=== PATIENT | female | born 1930 | race Caucasian/White ===

== ENCOUNTER 2016-12-28 07:00 | Day surgery (SDC) | payer MEDICARE, BC ==
[2016-12-28] MEDS: Polymyxin B/Trimethoprim 10 ML Bottle EYELF SCH ×4 (07:11→08:32)
[2016-12-28] MEDS: Brimonidine 0.2% Ophth Soln 5 ML Bottle EYELF SCH ×4 (07:17→08:32)
--- NOTE | 2016-12-28 07:21 | PCM.PREANE ---
Preanesthetic Assessment - Anesthesia/Transfusion/Family Hx Anesthesia History: Prior Anesthesia Without Reaction Type of Anesthesia Reaction: Excessive Nausea/Vomiting Family History of Anesthesia Reaction: No Transfusion History: No Prior Transfusion(s) Intubation History: Unknown - Review of Systems General: No Symptoms Pulmonary: No Symptoms Cardiovascular: No Symptoms (History of HTN), Dyspnea on Exertion Gastrointestinal: No Symptoms (GERD) Neurological: Dizziness, Difficulty Walking, Weakness Other: Reports: Easy Bruising, Diabetes (aBorderline diabetes) - Physical Assessment NPO Status Date: 12/27/16 NPO Status Time: 23:59 Pulse: 83 O2 Sat by Pulse Oximetry: 93 Respiratory Rate: 16 Blood Pressure: 169/86 Temperature: 37.4 C Height: 1.55 m Weight: 83.915 kg ASA Class: 2 Mental Status: Alert & Oriented x3 Airway Class: Mallampati = 2 Dentition: Reports: Normal Dentition, [place](s), Missing Tooth/Teeth, Caries Thyro-Mental Finger Breadths: 3 Mouth Opening Finger Breadths: 3 ROM/Head Extension: Full Lungs: Clear to Auscultation, Normal Respiratory Effort Cardiovascular: Regular Rate, Regular Rhythm, No Murmurs - Allergies Allergies/Adverse Reactions: Allergies Allergy/AdvReac Type Severity Reaction Status Date / Time No Known Allergies Allergy Verified 12/22/16 11:12 - Anesthesia Plan Pre-Op Medication Ordered: None - Acknowledgements Anesthesia Type Planned: MAC Pt an Appropriate Candidate for the Planned Anesthesia: Yes Alternatives and Risks of Anesthesia Discussed w Pt/Guardian: Yes Pt/Guardian Understands and Agrees with Anesthesia Plan: Yes PreAnesthesia Questionnaire - HOME MEDS Home Medications: Home Meds Acetaminophen 650 mg PO Q6H PRN 12/23/16 [History] Ascorbate Calcium [Vitamin C] 500 mg PO DAILY 12/23/16 [History] Calcium Carbonate/Vitamin D3 [Calcium 600 + Vit D 400 Tablet] 1 tab PO DAILY [History] Irbesartan 150 mg PO DAILY 12/23/16 [History] Rosuvastatin [Crestor] 10 mg PO DAILY 12/23/16 [History] amLODIPine [Norvasc] 10 mg PO DAILY 12/23/16 [History] rOPINIRole [Requip] 4 mg PO BEDTIME 12/23/16 [History] traMADol [Ultram] 50 mg PO Q6H PRN 12/23/16 [History] - CURRENT (IN HOUSE) MEDS Current Meds: Current Medications Brimonidine Tartrate (Alphagan 0.2% Ophth Soln) 0 ml EYELF ASDIRECTED ROSALBA Stop: 12/28/16 16:00 Cefuroxime Sodium (Zinacef) 0 mg EYELF ASDIRECTED ROSALBA Stop: 12/28/16 16:00 Lidocaine HCl (Xylocaine-Mpf 1%) 10 ml INJECT ASDIRECTED ROSALBA Stop: 12/28/16 16:00 Phenylephrine HCl (Umair-Synephrine 2.5% Ophth Soln) 0 ml EYELF ASDIRECTED ROSALBA Stop: 12/28/16 16:00 Pilocarpine HCl (Pilocar 4% Ophth Soln) 0 ml EYELF ASDIRECTED ROSALBA Stop: 12/28/16 16:00 Polymyxin/Trimethoprim Sulfate (Polytrim Ophth Soln) 0 ml EYELF ASDIRECTED ROSALBA Stop: 12/28/16 16:00 Last Admin: 12/28/16 07:11 Dose: 1 drop Tetracaine HCl (Tetracaine 0.5% Steri-Unit [place]) 0 ml EYELF ASDIRECTED ROSALBA Stop: 12/28/16 16:00 Tropicamide (Mydriacyl 1% Ophth Soln) 0 ml EYELF ASDIRECTED ROSALBA Stop: 12/28/16 16:00
[2016-12-28] MEDS: Phenylephrine 2.5% Ophth Soln 2 ML Bot EYELF SCH ×6 (07:23→08:09)
[2016-12-28] MEDS: Lidocaine 1% PF 2 ML SDV INJECT SCH ×2 (07:53→08:20)
[2016-12-28] MEDS: Pilocarpine 4% Ophth Soln 15 ML Bot EYELF SCH ×2 (07:53→08:32)
[2016-12-28] MEDS: Tetracaine HCl/PF 0.5% 4 ML Bottle EYELF SCH ×3 (07:53→08:21)
[2016-12-28] MEDS: Cefuroxime 10 MG/ML SYRINGE EYELF SCH ×2 (07:54→08:31)
--- NOTE | 2016-12-28 08:35 | PCM48HPAN ---
Post Anesthesia Note - EVALUATION WITHIN 48HRS OF ANESTHETIC Vital Signs in Normal Range: Yes Patient Participated in Evaluation: Yes Respiratory Function Stable: Yes Airway Patent: Yes Cardiovascular Function Stable: Yes Hydration Status Stable: Yes Pain Control Satisfactory: Yes Nausea and Vomiting Control Satisfactory: Yes Mental Status Recovered: Yes
[2016-12-28 08:58] VITALS: BP 154/78
== END 2016-12-28 08:50 | disposition home or self-care (01) ==
LOC: JD.SDS 07:00
PROVIDERS: ATTEND Ophthalmology
DX: H26.9 Unspecified cataract (principal); I10 Essential (primary) hypertension; E78.00 Pure hypercholesterolemia, unspecified; E11.9 Type 2 diabetes mellitus without complications; Z79.899 Other long term (current) drug therapy; Z90.710 Acquired absence of both cervix and uterus; Z98.890 Other specified postprocedural states
CPT/HCPCS: 66984; A9270; C1780; J0697

== ENCOUNTER → 2017-04-26 | Day surgery (SDC) | payer MEDICARE, BC ==
[~2017-04-26] MED LIST: Cefuroxime 10 MG/ML SYRINGE EYERT SCH; Lidocaine 1% PF 2 ML SDV INJECT SCH; Pilocarpine 4% Ophth Soln 15 ML Bot EYERT SCH
[2017-04-26] MEDS: Polymyxin B/Trimethoprim 10 ML Bottle EYERT SCH ×3 (09:27→11:16)
[2017-04-26] MEDS: Brimonidine 0.2% Ophth Soln 5 ML Bottle EYERT SCH ×3 (09:32→11:16)
[2017-04-26] MEDS: Phenylephrine 2.5% Ophth Soln 2 ML Bot EYERT SCH ×5 (09:37→10:58)
[2017-04-26] MEDS: Tetracaine HCl/PF 0.5% 4 ML Bottle EYERT SCH ×2 (10:30→11:08)
[2017-04-26 16:58] VITALS: BP 175/87
== END ==
LOC: JD.SDS 14:44
PROVIDERS: ATTEND Ophthalmology
DX: E11.36 Type 2 diabetes mellitus with diabetic cataract (principal); H25.011 Cortical age-related cataract, right eye; H02.834 Dermatochalasis of left upper eyelid; H02.831 Dermatochalasis of right upper eyelid; E78.00 Pure hypercholesterolemia, unspecified; I10 Essential (primary) hypertension; Z98.42 Cataract extraction status, left eye; Z96.1 Presence of intraocular lens; Z79.84 Long term (current) use of oral hypoglycemic drugs; Z79.899 Other long term (current) drug therapy; Z90.710 Acquired absence of both cervix and uterus; Z98.890 Other specified postprocedural states
CPT/HCPCS: 66984; 82962; C1780; J0697; A9270-GY

== ENCOUNTER → 2017-07-26 | Day surgery (SDC) | payer MEDICARE, BC ==
[~2017-07-26] MED LIST changes: +Brimonidine 0.2% Ophth Soln 5 ML Bottle EYEBOTH SCH; -Cefuroxime 10 MG/ML SYRINGE EYERT SCH; -Lidocaine 1% PF 2 ML SDV INJECT SCH; +Phenylephrine 2.5% Ophth Soln 2 ML Bot EYEBOTH SCH; -Pilocarpine 4% Ophth Soln 15 ML Bot EYERT SCH
[2017-07-26 12:29] VITALS: BP 161/97
== END ==
LOC: JD.SDS 10:42
PROVIDERS: ATTEND Ophthalmology
DX: H26.493 Other secondary cataract, bilateral (principal); H35.3131 Nonexudative age-related macular degeneration, bilateral, early dry stage; H35.363 Drusen (degenerative) of macula, bilateral; H40.003 Preglaucoma, unspecified, bilateral; H35.372 Puckering of macula, left eye; E11.9 Type 2 diabetes mellitus without complications; E78.00 Pure hypercholesterolemia, unspecified; I10 Essential (primary) hypertension; Z96.1 Presence of intraocular lens; Z90.710 Acquired absence of both cervix and uterus; Z98.890 Other specified postprocedural states; Z79.899 Other long term (current) drug therapy; Z79.84 Long term (current) use of oral hypoglycemic drugs

== ENCOUNTER 2017-10-05 17:14 | Emergency (ER) | payer MEDICARE, BC ==
[2017-10-05 17:27] VITALS: BP 183/91
--- NOTE | 2017-10-05 17:59 | EDM.PDOC ---
ED HPI GENERAL MEDICAL PROBLEM - General Chief Complaint: Chest Pain Stated Complaint: chest pain Time Seen by Provider: 10/05/17 17:58 Source of Information: Reports: Patient - History of Present Illness INITIAL COMMENTS - FREE TEXT/NARRATIVE: Patient is here for evaluation of primary complaint of chest pain. She states that it radiates from the middle of her chest to her back. This has been going on since the middle of the night last night per her report. She denies any associated diaphoresis. She denies any radiation of the pain. She also states that she felt very dizzy this morning and off balance. She has been walking with a walker for approximately one month. She occasionally feels short of breath too, more specifically with exertion. Patient does have history of hypertension and diabetes, which she is on medication and sees her PCP regularly. Chest Pain Score (Numeric/FACES): 3 - Related Data Allergies Allergy/AdvReac Type Severity Reaction Status Date / Time No Known Allergies Allergy Verified 10/05/17 17:24 Home Meds: Home Meds Irbesartan 150 mg PO DAILY 12/23/16 [History] Rosuvastatin [Crestor] 10 mg PO DAILY 12/23/16 [History] amLODIPine [Norvasc] 10 mg PO DAILY 12/23/16 [History] rOPINIRole [Requip] 4 mg PO BEDTIME 12/23/16 [History] traMADol [Ultram] 50 mg PO Q6H PRN 12/23/16 [History] Dextran 70/Hypromellose [Artificial Tears] 1 drop EYEBOTH ASDIRECTED 07/25/17 [ History] metFORMIN [Glucophage XR] 500 mg PO BID 07/25/17 [History] Acetaminophen [Tylenol] 650 mg PO Q6H PRN 10/05/17 [History] Ascorbate Calcium [Vitamin C] 500 mg PO DAILY 10/05/17 [History] Calcium Carb & Citrate/Vit D3 [Citracal + D ER] 1 tab PO DAILY 10/05/17 [History ] Docusate Sodium/Sennosides [Senokot-S] 8.6 - 50 mg PO BID 10/05/17 [History] Past Medical History HEENT History: Reports: Cataract, Macular Degeneration Cardiovascular History: Reports: Hypertension Gastrointestinal History: Reports: Chronic Diarrhea Endocrine/Metabolic History: Reports: Diabetes, Type II - Past Surgical History Musculoskeletal Surgical History: Reports: Knee Replacement, Shoulder Replacement Social & Family History - Tobacco Use Smoking Status *Q: Never Smoker ED ROS GENERAL - Review of Systems Review Of Systems: See Below Constitutional: Reports: Weakness, Fatigue. Denies: Fever, Chills, Malaise, Decreased Appetite HEENT: Denies: Ear Discharge, Ear Pain, Rhinitis, Sinus Problem, Vision Change Respiratory: Reports: Shortness of Breath, Other (Dyspnea on exertion). Denies : Wheezing, Pleuritic Chest Pain, Cough, Sputum Cardiovascular: Reports: Chest Pain, Blood Pressure Problem, Dyspnea on Exertion , Edema, Lightheadedness. Denies: Claudication, Orthopnea, Palpitations, PND, Syncope Endocrine: Reports: Fatigue GI/Abdominal: Reports: No Symptoms : Reports: Incontinence (chronic) Musculoskeletal: Reports: Back Pain (Chronic) Skin: Reports: No Symptoms Neurological: Reports: Dizziness, Weakness, Gait Disturbance. Denies: Confusion , Headache, Numbness, Syncope, Tingling Psychiatric: Reports: No Symptoms ED EXAM, GENERAL - Physical Exam Exam: See Below Exam Limited By: No Limitations General Appearance: Alert, WD/WN, No Apparent Distress Ears: Normal External Exam, Normal TMs, Hearing Loss (Mild/bilateral) Throat/Mouth: Normal Oropharynx, Other (Poor dentition) Head: Atraumatic, Normocephalic Neck: Normal Inspection, Supple, Non-Tender Respiratory/Chest: No Respiratory Distress, Lungs Clear, Normal Breath Sounds, No Accessory Muscle Use Cardiovascular: Normal Peripheral Pulses, Regular Rate, Rhythm, No Murmur Peripheral Pulses: 1+: Dorsalis Pedis (L), Dorsalis Pedis (R), 2+: Posterior Tibial (L), Posterior Tibial (R) GI/Abdominal: Normal Bowel Sounds, Soft, Non-Tender Neurological: Alert, Oriented, No Motor/Sensory Deficits Psychiatric: Normal Affect, Normal Mood Skin Exam: Warm, Dry, Intact EKG INTERPRETATION EKG Date: 10/05/17 Time: 17:22 Rhythm: NSR Course - Vital Signs Last Recorded V/S: Last Vital Signs Temp 99.0 F 10/05/17 17:24 Pulse 85 10/05/17 17:24 Resp 20 10/05/17 17:24 BP 183/91 H 10/05/17 17:24 Pulse Ox 89 L 10/05/17 17:24 - Orders/Labs/Meds Orders: Active Orders 24 hr Category Date Time Status CXR [Chest 2V] [CR] Stat Exams 10/05/17 18:10 Taken UA W/MICROSCOPIC [URIN] Stat Lab 10/05/17 18:10 Ordered Sodium Chloride 0.9% [Normal Saline] 250 ml Med 10/05/17 19:45 Active IV ASDIRECTED Sodium Chloride 0.9% [Saline Flush] Med 10/05/17 19:38 Active 10 ml FLUSH ONETIME PRN Medication Orders Sodium Chloride (Normal Saline) 250 mls @ 80 mls/hr IV ASDIRECTED ROSALBA Last Admin: 10/05/17 20:04 Dose: 80 mls/hr Sodium Chloride (Saline Flush) 10 ml FLUSH ONETIME PRN PRN Reason: IV FLUSH Last Admin: 10/05/17 20:04 Dose: 10 ml Labs: Laboratory Tests 10/05/17 10/05/17 10/05/17 Range/Units 17:30 17:30 17:30 WBC 9.48 (3.98-10.04) K/mm3 RBC 5.15 (3.98-5.22) M/mm3 Hgb 15.3 (11.2-15.7) gm/L Hct 46.0 H (34.1-44.9) % MCV 89.3 (79.4-94.8) fl MCH 29.7 (25.6-32.2) pg MCHC 33.3 (32.2-35.5) g/dl RDW Std Deviation 42.6 (36.4-46.3) fL Plt Count 265 (182-369) K/mm3 MPV 10.6 (9.4-12.3) fl Neutrophils % (Manual) 75 H (40-60) % Band Neutrophils % 0 (0-10) % Lymphocytes % (Manual) 25 (20-40) % Atypical Lymphs % 0 % Monocytes % (Manual) 0 L (2-10) % Eosinophils % (Manual) 0 L (0.7-5.8) % Basophils % (Manual) 0 L (0.1-1.2) Platelet Estimate Adequate RBC Morph Comment Normal D-Dimer, Quantitative (0.19-0.50) mg/L Sodium 142 (136-145) mEq/L Potassium 3.3 L (3.5-5.1) mEq/L Chloride 104 (98-107) mEq/L Carbon Dioxide 30 (21-32) mEq/L Anion Gap 11.3 (5-15) BUN 19 H (7-18) mg/dL Creatinine 1.0 (0.55-1.02) mg/dL Est Cr Clr Drug Dosing 32.79 mL/min Estimated GFR (MDRD) 52 (>60) mL/min BUN/Creatinine Ratio 19.0 H (14-18) Glucose 190 H (83-115) mg/dL Hemoglobin A1c (4.50-6.20) % Calcium 9.3 (8.5-10.1) mg/dL Magnesium 1.8 (1.8-2.4) mg/dl Total Bilirubin 0.4 (0.2-1.0) mg/dL AST 15 (15-37) U/L ALT 22 (14-59) U/L Alkaline Phosphatase 89 (46-116) U/L Troponin I < 0.017 (0.00-0.056) ng/mL Total Protein 7.6 (6.4-8.2) g/dl Albumin 3.6 (3.4-5.0) g/dl Globulin 4.0 gm/dL Albumin/Globulin Ratio 0.9 L (1-2) Urine Color (Yellow) Urine Appearance (Clear) Urine pH (5.0-8.0) Ur Specific [place] (1.005-1.030) Urine Protein (Negative) Urine Glucose (UA) (Negative) Urine Ketones (Negative) Urine Occult Blood (Negative) Urine Nitrite (Negative) Urine Bilirubin (Negative) Urine Urobilinogen (0.2-1.0) Ur Leukocyte Esterase (Negative) Urine RBC (0-5) /hpf Urine WBC (0-5) /hpf Ur Epithelial Cells (0-5) /hpf Urine Bacteria (FEW) /hpf Urine Mucus (FEW) /hpf 10/05/17 10/05/17 10/05/17 Range/Units 17:30 17:30 18:10 WBC (3.98-10.04) K/mm3 RBC (3.98-5.22) M/mm3 Hgb (11.2-15.7) gm/L Hct (34.1-44.9) % MCV (79.4-94.8) fl MCH (25.6-32.2) pg MCHC (32.2-35.5) g/dl RDW Std Deviation (36.4-46.3) fL Plt Count (182-369) K/mm3 MPV (9.4-12.3) fl Neutrophils % (Manual) (40-60) % Band Neutrophils % (0-10) % Lymphocytes % (Manual) (20-40) % Atypical Lymphs % % Monocytes % (Manual) (2-10) % Eosinophils % (Manual) (0.7-5.8) % Basophils % (Manual) (0.1-1.2) Platelet Estimate RBC Morph Comment D-Dimer, Quantitative 0.68 H (0.19-0.50) mg/L Sodium (136-145) mEq/L Potassium (3.5-5.1) mEq/L Chloride (98-107) mEq/L Carbon Dioxide (21-32) mEq/L Anion Gap (5-15) BUN (7-18) mg/dL Creatinine (0.55-1.02) mg/dL Est Cr Clr Drug Dosing mL/min Estimated GFR (MDRD) (>60) mL/min BUN/Creatinine Ratio (14-18) Glucose (83-115) mg/dL Hemoglobin A1c 7.70 H (4.50-6.20) % Calcium (8.5-10.1) mg/dL Magnesium (1.8-2.4) mg/dl Total Bilirubin (0.2-1.0) mg/dL AST (15-37) U/L ALT (14-59) U/L Alkaline Phosphatase (46-116) U/L Troponin I (0.00-0.056) ng/mL Total Protein (6.4-8.2) g/dl Albumin (3.4-5.0) g/dl Globulin gm/dL Albumin/Globulin Ratio (1-2) Urine Color Yellow (Yellow) Urine Appearance Cloudy H (Clear) Urine pH 7.0 (5.0-8.0) Ur Specific [place] 1.025 (1.005-1.030) Urine Protein 2+ H (Negative) Urine Glucose (UA) Negative (Negative) Urine Ketones Negative (Negative) Urine Occult Blood Negative (Negative) Urine Nitrite Negative (Negative) Urine Bilirubin Negative (Negative) Urine Urobilinogen 1.0 (0.2-1.0) Ur Leukocyte Esterase Trace H (Negative) Urine RBC 0-5 (0-5) /hpf Urine WBC 5-10 H (0-5) /hpf Ur Epithelial Cells 0-5 (0-5) /hpf Urine Bacteria Many H (FEW) /hpf Urine Mucus Not seen (FEW) /hpf Meds: Medications Generic Name Dose Route Start Last Admin Trade Name Freq PRN Reason Stop Dose Admin Sodium Chloride 250 mls @ 80 mls/hr 10/05/17 19:45 10/05/17 20:04 Normal Saline IV 80 mls/hr ASDIRECTED ROSALBA Administration Sodium Chloride 10 ml 10/05/17 19:38 10/05/17 20:04 Saline Flush FLUSH 10 ml ONETIME PRN Administration IV FLUSH Discontinued Medications Generic Name Dose Route Start Last Admin Trade Name Freq PRN Reason Stop Dose Admin Sodium Chloride 500 mls @ 999 mls/hr 10/05/17 18:55 10/05/17 19:06 Normal Saline IV 10/05/17 19:25 999 mls/hr ONETIME ONE Administration Iopamidol 100 ml 10/05/17 19:38 10/05/17 20:04 Isovue-370 (76%) IVPUSH 10/05/17 19:39 100 ml ONETIME ONE Administration - Re-Assessments/Exams Free Text/Narrative Re-Assessment/Exam: Patient states that pain is minimal at this time, but she does feel short of breath. Her initial oxygen was 89% on room air, however when she was repositioned this was maintaining between 96 and 98%. Decreased lung sounds at the bases, lungs otherwise clear. Troponin is negative. WBC is 9,480 with 75% neutrophils and no bands. Potassium a bit low at 3.3 and glucose is 190. She is on metformin for her diabetes. As we already tavo blood, we'll check A1c as well so she can follow up with her PCP to address this further. D-dimer is elevated at 0.68. Will get a CTA of her chest. Her creatinine was 1.0, so will also give her 500 mL of normal saline. Smile is asymmetric, though patient reports that she has teeth problems. Strength is equal bilaterally to upper and lower extremities. Visual motta are intact. Patient's speech is completely normal, neurological exam is otherwise negative. Regardless, with the symptoms reported will get a CT of her head without contrast. Urinalysis is concentrated but not suggestive of infection. 10/05/17 19:08 A1c 7.70%. Diabetes not under good control. Patient will need to follow up with her PCP to discuss other treatment options. 10/05/17 20:03 Patient is back from CT, she reports feeling "better than I have all week". She denies any pain. Denies any dyspnea. Awaiting CT images on results. Blood pressure is improved at 160/87. Certainly not to goal. 10/05/17 20:21 On discharge patient's blood pressure is 140/84. She reports feeling well. Denies any dyspnea or chest pain currently. CT of her head demonstrated senescent change but no acute abnormality. CTA of her chest demonstrated no findings of pulmonary embolism. There was some atherosclerotic calcification within the aorta. Small hiatal hernia. Several cysts within the liver. Will discharge home. Advised her to increase her fluid intake. She is to keep close monitor on her blood glucose readings, it sounds like she and her PCP had been working on these and she does have improvement from when they were per her report. Check blood pressure once daily at home. She will follow-up with her PCP over the next week or return to the emergency room if needed. 10/05/17 21:07 Departure - Departure Time of Disposition: 21:08 Disposition: Home, Self-Care 01 Condition: Good Clinical Impression: Atypical chest pain, Dyspnea on exertion Fatigue Qualifiers: Fatigue type: unspecified Qualified Code(s): R53.83 - Other fatigue Referrals: Shankar Dang MD [Primary Care Provider] - Forms: ED Department Discharge Additional Instructions: You were evaluated in the emergency room for chest pain and overall fatigue. Evaluation of the heart was negative and did not demonstrate cause for this. Evaluation of your chest/lungs demonstrated no blood clots. Your blood pressure was initially quite high but did come down. Your diabetes is still not at goal, though it sounds like you are working on this with your regular provider. I recommend you follow up with your primary provider within a week or return to emergency room if any new or worsening symptoms.ny - My Orders Last 24 Hours: My Active Orders 10/05/17 18:10 CXR [Chest 2V] [CR] Stat UA W/MICROSCOPIC [URIN] Stat 10/05/17 19:38 Sodium Chloride 0.9% [Saline Flush] 10 ml FLUSH ONETIME PRN 10/05/17 19:45 Sodium Chloride 0.9% [Normal Saline] 250 ml IV ASDIRECTED - Assessment/Plan Last 24 Hours: My Active Orders 10/05/17 18:10 CXR [Chest 2V] [CR] Stat UA W/MICROSCOPIC [URIN] Stat 10/05/17 19:38 Sodium Chloride 0.9% [Saline Flush] 10 ml FLUSH ONETIME PRN 10/05/17 19:45 Sodium Chloride 0.9% [Normal Saline] 250 ml IV ASDIRECTED
[2017-10-05] MEDS: Sodium Chloride 0.9% 500 ML IV ONE (19:06)
[2017-10-05] MEDS: Sodium Chloride 0.9% 10 ML Syringe FLUSH PRN (20:04)
[2017-10-05] MEDS: Iopamidol 755 Mg/ML 100 ML Bottle IVPUSH ONE (20:04)
[2017-10-05] MEDS: Sodium Chloride 0.9% 250 ML IV SCH (20:04)
--- NOTE | 2017-10-05 20:47 | CT ---
Head CT Technique: Multiple axial sections through the brain were obtained. Intravenous contrast was not utilized. Comparison: No previous intracranial imaging. Findings: Ventricles along with basal cisterns and sulci over the convexities are moderately prominent. Diffuse diminished density is noted within the periventricular and subcortical white matter which is likely due to small vessel ischemic demyelination change. No evidence of intracranial hemorrhage. No midline shift or mass effect is seen. Atherosclerotic calcification is seen within the carotid siphon and within the left vertebral vessel. Bone window settings were reviewed which shows no acute calvarial abnormality. Visualized sinuses are clear. Impression: 1. Senescent change as noted above. No acute intracranial abnormality is identified. Diagnostic code #2
--- NOTE | 2017-10-05 20:52 | CT ---
CT chest Technique: Multiple axial sections through the chest were obtained. Intravenous contrast was utilized. Study has been performed as a pulmonary angiogram protocol. Findings: Pulmonary arteries are well-opacified. No filling defects are seen to indicate pulmonary embolism. Mediastinum and hilar regions show no adenopathy or mass. Atherosclerotic calcification is seen within the thoracic aorta. No thoracic aortic aneurysm is seen. No pericardial thickening is seen. Small hiatal hernia is seen. Several cysts are seen within the liver. Lung window settings were reviewed which shows no acute parenchymal densities. No pleural effusions are seen. Minimal bronchiectasis and fibrosis is seen within the lung bases. Bone window settings were obtained shows severe degenerative change within the left shoulder. Right shoulder prosthesis is seen. Scattered degenerative endplate spurring is seen within the spine. No acute rib abnormality is identified. Impression: 1. No findings of pulmonary embolism. 2. Other incidental findings as noted above. Nothing acute is seen on CT study of the chest. Diagnostic code #2
--- NOTE | 2017-10-06 06:56 | CR ---
Chest: Two views of the chest were obtained. Comparison: No prior chest x-ray. Heart size is normal. Tortuous thoracic aorta is seen. 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 Minimal atelectasis or scarring is seen within the right lateral costophrenic angle. Lungs show no acute parenchymal densities. Degenerative change is noted within the left shoulder. Degenerative change is scattered within the spine. Surgical clips are seen from prior cholecystectomy. Impression: 1. Incidental findings as noted above. Nothing acute is seen on two-view chest x-ray. Diagnostic code #2
== END 2017-10-05 21:22 | disposition home or self-care (01) ==
LOC: JD.ED 17:14
DX: R07.89 Other chest pain (principal); R06.00 Dyspnea, unspecified; R53.83 Other fatigue; I10 Essential (primary) hypertension; E11.9 Type 2 diabetes mellitus without complications; H35.30 Unspecified macular degeneration; Z79.84 Long term (current) use of oral hypoglycemic drugs; Z79.899 Other long term (current) drug therapy
CPT/HCPCS: 36415; 70450; 71046; 71275; 80053; 81001; 83036; 83735; 84484; 85007; 85027; 85379; 93005; 96360; 99285; J7040; J7050; Q9967

== ENCOUNTER 2018-02-01 08:50 | Inpatient (IN) | payer MEDICARE, BC ==
--- NOTE | 2018-02-01 09:39 | EDM.PDOC ---
ED HPI GENERAL MEDICAL PROBLEM - General Chief Complaint: Syncope Stated Complaint: FALL 2 DAYS AGO /MULTIPLE PAINS Time Seen by Provider: 02/01/18 09:02 Source of Information: Reports: Patient, Family (Daughter), RN Notes Reviewed History Limitations: Reports: No Limitations - History of Present Illness INITIAL COMMENTS - FREE TEXT/NARRATIVE: The patient states that she has been feeling lightheaded with urinary frequency for the past few months. The patient's daughter states that the patient has had malodorous urine for the past few months, as well. The patient states that she passed out after getting up from a recliner this past 01/27/2018. She believes that she landed on her buttocks, and she subsequently had pain in her tailbone area. She now presents to the ED because her tailbone pain has not improved. No recent fever, nausea, vomiting, constipation, or diarrhea. The patient's PCP is Dr. Dang, who has not been made aware of this condition. Lower Back Pain Score (Numeric/FACES): 6 - Related Data Allergies Allergy/AdvReac Type Severity Reaction Status Date / Time No Known Allergies Allergy Verified 02/01/18 09:12 Home Meds: Home Meds Irbesartan 150 mg PO DAILY 12/23/16 [History] Rosuvastatin [Crestor] 10 mg PO DAILY 12/23/16 [History] amLODIPine [Norvasc] 10 mg PO DAILY 12/23/16 [History] rOPINIRole [Requip] 4 mg PO BEDTIME 12/23/16 [History] traMADol [Ultram] 50 mg PO Q6H PRN 12/23/16 [History] Dextran 70/Hypromellose [Artificial Tears] 1 drop EYEBOTH ASDIRECTED 07/25/17 [ History] metFORMIN [Glucophage XR] 1,000 mg PO BID 07/25/17 [History] Acetaminophen [Tylenol] 650 mg PO Q6H PRN 10/05/17 [History] Ascorbate Calcium [Vitamin C] 500 mg PO DAILY 10/05/17 [History] Calcium Carb & Citrate/Vit D3 [Citracal + D ER] 1 tab PO DAILY 10/05/17 [History ] B2/Vit A,C & E/Lut/Zeaxanth/Mn [Icaps] 2 cap PO BID 02/01/18 [History] Diclofenac Sodium 1 applic TOP TID 02/01/18 [History] Past Medical History HEENT History: Reports: Impaired Vision, Macular Degeneration Cardiovascular History: Reports: High Cholesterol, Hypertension Endocrine/Metabolic History: Reports: Diabetes, Type II - Past Surgical History HEENT Surgical History: Reports: Cataract Surgery, Tonsillectomy GI Surgical History: Reports: Appendectomy, Cholecystectomy Female Surgical History: Reports: Hysterectomy, Salpingo-Oophorectomy Musculoskeletal Surgical History: Reports: Knee Replacement (right x 3, left x 1 ), Shoulder Replacement (right, reverse) Social & Family History - Tobacco Use Smoking Status *Q: Never Smoker - Alcohol Use Alcohol Use History: Yes Alcohol Use Frequency: Socially - Recreational Drug Use Recreational Drug Use: No - Living Situation & Occupation Living situation: Reports: , with Spouse Occupation: Retired ED ROS GENERAL - Review of Systems Review Of Systems: ROS reveals no pertinent complaints other than HPI. ED EXAM, GENERAL - Physical Exam Exam: See Below Exam Limited By: No Limitations General Appearance: Alert, WD/WN, No Apparent Distress Eye Exam: Bilateral Eye: EOMI, Normal Inspection Ears: Normal External Exam, Hearing Grossly Normal Nose: Normal Inspection, No Blood Throat/Mouth: Normal Inspection, Normal Lips, Normal Voice, No Airway Compromise Head: Atraumatic, Normocephalic Neck: Normal Inspection, Full Range of Motion Respiratory/Chest: No Respiratory Distress, Lungs Clear, Normal Breath Sounds, No Accessory Muscle Use Cardiovascular: Normal Peripheral Pulses, Regular Rate, Rhythm, No Gallop, No JVD, No Murmur, No Rub Peripheral Pulses: 4+: Radial (L), Radial (R) GI/Abdominal: Normal Bowel Sounds, Soft, Non-Tender (even suprapubically), No Organomegaly, No Distention, No Abnormal Bruit, No Mass, Other (Obese) (Female) Exam: Deferred Rectal (Female) Exam: Deferred Back Exam: Full Range of Motion, Other (Reproducible coccygeal tenderness) Extremities: Normal Inspection, Normal Range of Motion, Normal Capillary Refill Neurological: Alert, Oriented, Normal Cognition, No Motor/Sensory Deficits Psychiatric: Normal Affect Skin Exam: Warm, Dry, Intact, Normal Color, No Rash EKG INTERPRETATION EKG Date: 02/01/18 Time: 09:29 Rhythm: NSR Rate (Beats/Min): 71 [place]: Normal P-Wave: Present QRS: Normal (+LVH) ST-T: Normal QT: Normal Comparison: No Change (10/05/2017) Course - Vital Signs Last Recorded V/S: Last Vital Signs Temp 37.4 C 02/01/18 08:50 Pulse 86 02/01/18 08:50 Resp 20 02/01/18 08:50 BP 189/80 H 02/01/18 08:50 Pulse Ox 93 L 02/01/18 08:50 Orthostatic Blood Pressure [ 174/78 Standing] Orthostatic Blood Pressure [ 163/70 Sitting] Orthostatic Blood Pressure [ 176/73 Supine] - Orders/Labs/Meds Orders: Active Orders 24 hr Category Date Time Status EKG Documentation Completion [RC] STAT Care 02/01/18 09:23 Active Orthostatic Vital Signs [RC] STAT Care 02/01/18 09:23 Active Chest 1V Frontal [CR] Stat Exams 02/01/18 09:22 Taken Sacrum Coccyx Min 2V [CR] Stat Exams 02/01/18 09:23 Taken CULTURE URINE [RM] Stat Lab 02/01/18 09:25 Received Labs: Laboratory Tests 02/01/18 02/01/18 02/01/18 Range/Units 09:33 09:33 09:33 WBC 6.89 (3.98-10.04) K/mm3 RBC 4.91 (3.98-5.22) M/mm3 Hgb 14.6 (11.2-15.7) gm/L Hct 44.1 (34.1-44.9) % MCV 89.8 (79.4-94.8) fl MCH 29.7 (25.6-32.2) pg MCHC 33.1 (32.2-35.5) g/dl RDW Std Deviation 44.2 (36.4-46.3) fL Plt Count 268 (182-369) K/mm3 MPV 10.0 (9.4-12.3) fl Neutrophils % (Manual) 81 H (40-60) % Band Neutrophils % 0 (0-10) % Lymphocytes % (Manual) 9 L (20-40) % Atypical Lymphs % 0 % Monocytes % (Manual) 8 (2-10) % Eosinophils % (Manual) 2 (0.7-5.8) % Basophils % (Manual) 0 L (0.1-1.2) Platelet Estimate Adequate RBC Morph Comment Normal D-Dimer, Quantitative 0.61 H (0.19-0.50) mg/L Sodium 142 (136-145) mEq/L Potassium 2.8 L (3.5-5.1) mEq/L Chloride 104 (98-107) mEq/L Carbon Dioxide 30 (21-32) mEq/L Anion Gap 10.8 (5-15) BUN 11 (7-18) mg/dL Creatinine 0.7 (0.55-1.02) mg/dL Est Cr Clr Drug Dosing 40.67 mL/min Estimated GFR (MDRD) > 60 (>60) mL/min BUN/Creatinine Ratio 15.7 (14-18) Glucose 189 H (83-115) mg/dL Calcium 9.2 (8.5-10.1) mg/dL Magnesium 1.7 L (1.8-2.4) mg/dl Total Bilirubin 0.6 (0.2-1.0) mg/dL AST 12 L (15-37) U/L ALT 17 (14-59) U/L Alkaline Phosphatase 76 (46-116) U/L Troponin I < 0.017 (0.00-0.056) ng/mL Total Protein 7.4 (6.4-8.2) g/dl Albumin 3.4 (3.4-5.0) g/dl Globulin 4.0 gm/dL Albumin/Globulin Ratio 0.9 L (1-2) Urine Color (Yellow) Urine Appearance (Clear) Urine pH (5.0-8.0) Ur Specific [place] (1.005-1.030) Urine Protein (Negative) Urine Glucose (UA) (Negative) Urine Ketones (Negative) Urine Occult Blood (Negative) Urine Nitrite (Negative) Urine Bilirubin (Negative) Urine Urobilinogen (0.2-1.0) Ur Leukocyte Esterase (Negative) Urine RBC (0-5) /hpf Urine WBC (0-5) /hpf Ur Epithelial Cells (0-5) /hpf Urine Bacteria (FEW) /hpf Urine Mucus (FEW) /hpf 02/01/18 Range/Units 09:34 WBC (3.98-10.04) K/mm3 RBC (3.98-5.22) M/mm3 Hgb (11.2-15.7) gm/L Hct (34.1-44.9) % MCV (79.4-94.8) fl MCH (25.6-32.2) pg MCHC (32.2-35.5) g/dl RDW Std Deviation (36.4-46.3) fL Plt Count (182-369) K/mm3 MPV (9.4-12.3) fl Neutrophils % (Manual) (40-60) % Band Neutrophils % (0-10) % Lymphocytes % (Manual) (20-40) % Atypical Lymphs % % Monocytes % (Manual) (2-10) % Eosinophils % (Manual) (0.7-5.8) % Basophils % (Manual) (0.1-1.2) Platelet Estimate RBC Morph Comment D-Dimer, Quantitative (0.19-0.50) mg/L Sodium (136-145) mEq/L Potassium (3.5-5.1) mEq/L Chloride (98-107) mEq/L Carbon Dioxide (21-32) mEq/L Anion Gap (5-15) BUN (7-18) mg/dL Creatinine (0.55-1.02) mg/dL Est Cr Clr Drug Dosing mL/min Estimated GFR (MDRD) (>60) mL/min BUN/Creatinine Ratio (14-18) Glucose (83-115) mg/dL Calcium (8.5-10.1) mg/dL Magnesium (1.8-2.4) mg/dl Total Bilirubin (0.2-1.0) mg/dL AST (15-37) U/L ALT (14-59) U/L Alkaline Phosphatase (46-116) U/L Troponin I (0.00-0.056) ng/mL Total Protein (6.4-8.2) g/dl Albumin (3.4-5.0) g/dl Globulin gm/dL Albumin/Globulin Ratio (1-2) Urine Color Yellow (Yellow) Urine Appearance Slt cloudy H (Clear) Urine pH 7.0 (5.0-8.0) Ur Specific [place] 1.020 (1.005-1.030) Urine Protein 2+ H (Negative) Urine Glucose (UA) Trace H (Negative) Urine Ketones Negative (Negative) Urine Occult Blood Negative (Negative) Urine Nitrite Negative (Negative) Urine Bilirubin Negative (Negative) Urine Urobilinogen 1.0 (0.2-1.0) Ur Leukocyte Esterase Negative (Negative) Urine RBC 0-5 (0-5) /hpf Urine WBC 0-5 (0-5) /hpf Ur Epithelial Cells 0-5 (0-5) /hpf Urine Bacteria Many H (FEW) /hpf Urine Mucus Not seen (FEW) /hpf Meds: Medications Discontinued Medications Generic Name Dose Route Start Last Admin Trade Name [place] PRN Reason Stop Dose Admin Potassium Chloride 40 meq 02/01/18 10:29 02/01/18 11:08 Klor-Con M20 PO 02/01/18 10:30 40 meq ONETIME ONE Administration - Re-Assessments/Exams Free Text/Narrative Re-Assessment/Exam: 02/01/18 10:02 Portable chest radiograph reviewed. Cardiac silhouette is within normal limits, although the aorta appears to be tortuous. No pulmonary vascular congestion. No pleural effusions. No focal infiltrate. No pneumothorax. A right shoulder reverse arthroplasty noted. 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 Formal read per the Radiologist pending. 3 View sacrum/coccyx radiographs reviewed. No pelvic fracture seen, however, there does appear to be a fracture of the superior coccyx. Formal read per the radiologist pending. 02/01/18 10:15 The patient is not orthostatic. The patient's D-dimer is slightly elevated at 0.61. This is normal for a patient this age, and not consistent with a pulmonary embolus. The patient's urinalysis demonstrates many bacteria, but is nitrite and leukocyte esterase negative, with 0-5 WBCs. This is not consistent with UTI, however, I have ordered a urine culture. 02/01/18 10:29 The patient's potassium has returned as substantially depressed at 2.8, with her magnesium only slightly depressed at 1.7. Her blood glucose is elevated at 189. I have ordered 40 mEq of oral potassium, but she will require more, and, further, she will require evaluation as to why she became so hypokalemic - the patient is not on a diuretic. 02/01/18 10:36 Test results discussed with the patient and her daughter. I recommended that the patient be hospitalized for a day or two in order to correct her potassium and look into why she is hypokalemic. They have agreed. 02/01/18 10:[address] Rey at 10:37. She agreed to admit the patient. She will come by the ED to evaluate the patient. 02/01/18 10:58 Dr. Rey has evaluated the patient, and would like to have her on telemetry. Departure - Departure Time of Disposition: 10:39 Disposition: Admitted As Inpatient 66 Condition: Fair Clinical Impression: Syncope, Hypokalemia, Hyperglycemia due to type 2 diabetes mellitus, Fractured coccyx - Discharge Information *PRESCRIPTION DRUG MONITORING PROGRAM REVIEWED*: Not Applicable *COPY OF PRESCRIPTION DRUG MONITORING REPORT IN PATIENT ELE: Not Applicable Referrals: Shankar Dang MD [Primary Care Provider] - - My Orders Last 24 Hours: My Active Orders 02/01/18 09:22 Chest 1V Frontal [CR] Stat 02/01/18 09:23 EKG Documentation Completion [RC] STAT Orthostatic Vital Signs [RC] STAT Sacrum Coccyx Min 2V [CR] Stat 02/01/18 09:25 CULTURE URINE [RM] Stat - Assessment/Plan Last 24 Hours: My Active Orders 02/01/18 09:22 Chest 1V Frontal [CR] Stat 02/01/18 09:23 EKG Documentation Completion [RC] STAT Orthostatic Vital Signs [RC] STAT Sacrum Coccyx Min 2V [CR] Stat 02/01/18 09:25 CULTURE URINE [RM] Stat
[2018-02-01] MEDS ORDERED: Potassium Chloride 20 MEQ Tab.ER PO ONE (10:29)
[2018-02-01] MEDS ORDERED: Docusate Sodium 100 MG Cap PO PRN (12:12)
[2018-02-01] MEDS ORDERED: Albuterol 0.083% 2.5 MG/3 ML Neb Soln NEB PRN (12:12)
[2018-02-01] MEDS ORDERED: Magnesium Hydroxide 400 MG/5 ML Susp 30 ML Cup PO PRN (12:12)
[2018-02-01] MEDS ORDERED: Albuterol/Ipratropium 3.0-0.5 MG/3 ML Neb Soln NEB PRN (12:12)
[2018-02-01] MEDS ORDERED: Ondansetron 4 MG Tab.DIS PO PRN (12:12)
[2018-02-01] MEDS ORDERED: Acetaminophen 325 MG Tab PO PRN (12:12)
[2018-02-01] MEDS ORDERED: Polyethylene Glycol 3350 Powder 17 GM Packet PO PRN (12:12)
[2018-02-01] MEDS ORDERED: Bisacodyl 5 MG Tab PO PRN (12:12)
[2018-02-01] MEDS ORDERED: Ondansetron 4 MG/2 ML SDV IV PRN (12:12)
[2018-02-01] MEDS ORDERED: HYDROmorphone 0.5 MG/0.5 ML Syringe IVPUSH PRN (12:12)
[2018-02-01] MEDS ORDERED: hydrALAZINE 20 MG/ML SDV IVPUSH PRN (12:19)
[2018-02-01] MEDS ORDERED: Hypromellose 0.5% Ophth Soln 15 ML Bottle EYEBOTH SCH (12:30)
--- NOTE | 2018-02-01 12:30 | PCM.HP ---
H&P History of Present Illness - General Date of Service: 02/01/18 Admit Problem/Dx: Admission Diagnosis/Problem Admission Diagnosis/Problem Hypokalemia Source of Information: Patient, Family, Provider History Limitations: Reports: No Limitations - History of Present Illness Initial Comments - Free Text/Narative: HPI: This is a 87 yo female with past medical hx/o HTN, HLD, DM2, chronic knee pain s /p bilateral knee replacements who comes in for fall with fracture to coccyx. Pain is controlled. Pt is currently lethargic and daughter is answering most questions. She reports no fever, chills, nausea, vomiting. She has had some urinary frequency, lightheadedness, syncope, chronic diarrhea. She fell on Tuesday01/27/18 and landed on her buttocks and has pain in tailbone area. Her initial workup in the ED showed a CBC remarkable for Neut 81%, Lymph 9%. Her chemistry is remarkable for potassium 2.8, Glu 189, Mag 1.7, AST 12. D- dimer elevated at 0.61. U/A unimpressive for UTI. Orthostatics in ED negative. EKG WNL. CXR pending formal read, no acute abnormalities per ED read. Sacrum/ Coccyx XR pending formal read; fracture of superior coccyx per ED read. She is subsequently admitted to the medical floor. She is a full code. Her PCP is Dr. Dang. Lower Back Pain Score (Numeric/FACES): 6 - Related Data Allergies/Adverse Reactions: Allergies Allergy/AdvReac Type Severity Reaction Status Date / Time No Known Allergies Allergy Verified 02/01/18 12:19 Home Medications: Home Meds Irbesartan 150 mg PO DAILY 12/23/16 [History] Rosuvastatin [Crestor] 10 mg PO DAILY 12/23/16 [History] amLODIPine [Norvasc] 10 mg PO DAILY 12/23/16 [History] rOPINIRole [Requip] 4 mg PO BEDTIME 12/23/16 [History] traMADol [Ultram] 50 mg PO Q6H PRN 12/23/16 [History] Dextran 70/Hypromellose [Artificial Tears] 1 drop EYEBOTH ASDIRECTED 07/25/17 [ History] metFORMIN [Glucophage XR] 1,000 mg PO BID 07/25/17 [History] Acetaminophen [Tylenol] 650 mg PO Q6H PRN 10/05/17 [History] Ascorbate Calcium [Vitamin C] 500 mg PO DAILY 10/05/17 [History] Calcium Carb & Citrate/Vit D3 [Citracal + D ER] 1 tab PO DAILY 10/05/17 [History ] B2/Vit A,C & E/Lut/Zeaxanth/Mn [Icaps] 2 cap PO BID 02/01/18 [History] Diclofenac Sodium 1 applic TOP TID 02/01/18 [History] Past Medical History HEENT History: Reports: Impaired Vision, Macular Degeneration Other HEENT History: wears eyeglasses. 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 - Infectious Disease History Infectious Disease History: Reports: Chicken Pox - Past Surgical History HEENT Surgical History: Reports: Cataract Surgery, Tonsillectomy GI Surgical History: Reports: Appendectomy, Cholecystectomy Female Surgical History: Reports: Hysterectomy, Salpingo-Oophorectomy Musculoskeletal Surgical History: Reports: Knee Replacement (right x 3, left x 1 ), Shoulder Replacement (right, reverse) Social & Family History - Tobacco Use Smoking Status *Q: Never Smoker Second Hand Smoke Exposure: No - Caffeine Use Caffeine Use: Reports: Coffee - Recreational Drug Use Recreational Drug Use: No - Living Situation & Occupation Living situation: Reports: , with Spouse Occupation: Retired H&P Review of Systems - Review of Systems: Review Of Systems: See Below General: Reports: Fatigue. Denies: Fever, Chills HEENT: Reports: No Symptoms Pulmonary: Reports: No Symptoms. Denies: Shortness of Breath, Cough Cardiovascular: Reports: Blood Pressure Problem. Denies: Chest Pain Gastrointestinal: Reports: Diarrhea (chronic per pt). Denies: Abdominal Pain, Constipation, Nausea, Vomiting Genitourinary: Reports: Frequency. Denies: Dysuria, Burning, Pain, Incontinence Musculoskeletal: Reports: No Symptoms Skin: Reports: No Symptoms Psychiatric: Reports: No Symptoms Neurological: Reports: Numbness (peripheral neuropathy), Tingling, Difficulty Walking, Gait Disturbance (uses walker), Other (h/o restless leg syndrome). Denies: Trouble Speaking Hematologic/Lymphatic: Reports: No Symptoms Immunologic: Reports: No Symptoms Exam - Exam Exam: See Below - Vital Signs Vital Signs: Last Vital Signs Temp 99.4 F 02/01/18 08:50 Pulse 86 02/01/18 08:50 Resp 20 02/01/18 08:50 BP 189/80 H 02/01/18 08:50 Pulse Ox 93 L 02/01/18 08:50 Orthostatic Blood Pressure [ 174/78 Standing] Orthostatic Blood Pressure [ 163/70 Sitting] Orthostatic Blood Pressure [ 176/73 Supine] Weight: 130 lb - Exam Quality Assessment: DVT Prophylaxis. No: Supplemental Oxygen General: Alert, Oriented, Cooperative, Mild Distress, Lethargic HEENT: PERRLA, Hearing Intact, Mucosa Moist & [place], Nares Patent, Normal Nasal Septum, Posterior Pharynx Clear, Conjunctiva Clear, EOMI, EACs Clear, TMs Clear Neck: Supple, Trachea Midline, 2 Lungs: Clear to Auscultation, Normal Respiratory Effort Cardiovascular: Regular Rate, Regular Rhythm GI/Abdominal Exam: Normal Bowel Sounds, Soft, Non-Tender, No Organomegaly, No Distention, No Abnormal Bruit, No Mass, Pelvis Stable (Female) Exam: Deferred Rectal (Female) Exam: Deferred Back Exam: Normal Inspection, Full Range of Motion, NT Extremities: Normal Inspection, Normal Range of Motion, Non-Tender, No Pedal Edema, Normal Capillary Refill Peripheral Pulses: 2+: Posterior Tibial (L), Posterior Tibial (R), Dorsalis Pedis (L), Dorsalis Pedis (R) Skin: Warm, Dry, Intact Neurological: Cranial Nerves Intact (grossly) Neuro Extensive - Mental Status: Alert, Oriented x3, Normal Mood/Affect, Normal Cognition Psychiatric: Alert, Normal Affect, Normal Mood - Patient Data Lab Results Last 24 hrs: Laboratory Results - last 24 hr 02/01/18 02/01/18 02/01/18 Range/Units 09:33 09:33 09:33 WBC 6.89 (3.98-10.04) K/mm3 RBC 4.91 (3.98-5.22) M/mm3 Hgb 14.6 (11.2-15.7) gm/L Hct 44.1 (34.1-44.9) % MCV 89.8 (79.4-94.8) fl MCH 29.7 (25.6-32.2) pg MCHC 33.1 (32.2-35.5) g/dl RDW Std Deviation 44.2 (36.4-46.3) fL Plt Count 268 (182-369) K/mm3 MPV 10.0 (9.4-12.3) fl Neutrophils % (Manual) 81 H (40-60) % Band Neutrophils % 0 (0-10) % Lymphocytes % (Manual) 9 L (20-40) % Atypical Lymphs % 0 % Monocytes % (Manual) 8 (2-10) % Eosinophils % (Manual) 2 (0.7-5.8) % Basophils % (Manual) 0 L (0.1-1.2) Platelet Estimate Adequate RBC Morph Comment Normal D-Dimer, Quantitative 0.61 H (0.19-0.50) mg/L Sodium 142 (136-145) mEq/L Potassium 2.8 L (3.5-5.1) mEq/L Chloride 104 (98-107) mEq/L Carbon Dioxide 30 (21-32) mEq/L Anion Gap 10.8 (5-15) BUN 11 (7-18) mg/dL Creatinine 0.7 (0.55-1.02) mg/dL Est Cr Clr Drug Dosing 40.67 mL/min Estimated GFR (MDRD) > 60 (>60) mL/min BUN/Creatinine Ratio 15.7 (14-18) Glucose 189 H (83-115) mg/dL Calcium 9.2 (8.5-10.1) mg/dL Magnesium 1.7 L (1.8-2.4) mg/dl Total Bilirubin 0.6 (0.2-1.0) mg/dL AST 12 L (15-37) U/L ALT 17 (14-59) U/L Alkaline Phosphatase 76 (46-116) U/L Troponin I < 0.017 (0.00-0.056) ng/mL Total Protein 7.4 (6.4-8.2) g/dl Albumin 3.4 (3.4-5.0) g/dl Globulin 4.0 gm/dL Albumin/Globulin Ratio 0.9 L (1-2) Urine Color (Yellow) Urine Appearance (Clear) Urine pH (5.0-8.0) Ur Specific [place] (1.005-1.030) Urine Protein (Negative) Urine Glucose (UA) (Negative) Urine Ketones (Negative) Urine Occult Blood (Negative) Urine Nitrite (Negative) Urine Bilirubin (Negative) Urine Urobilinogen (0.2-1.0) Ur Leukocyte Esterase (Negative) Urine RBC (0-5) /hpf Urine WBC (0-5) /hpf Ur Epithelial Cells (0-5) /hpf Urine Bacteria (FEW) /hpf Urine Mucus (FEW) /hpf 02/01/18 Range/Units 09:34 WBC (3.98-10.04) K/mm3 RBC (3.98-5.22) M/mm3 Hgb (11.2-15.7) gm/L Hct (34.1-44.9) % MCV (79.4-94.8) fl MCH (25.6-32.2) pg MCHC (32.2-35.5) g/dl RDW Std Deviation (36.4-46.3) fL Plt Count (182-369) K/mm3 MPV (9.4-12.3) fl Neutrophils % (Manual) (40-60) % Band Neutrophils % (0-10) % Lymphocytes % (Manual) (20-40) % Atypical Lymphs % % Monocytes % (Manual) (2-10) % Eosinophils % (Manual) (0.7-5.8) % Basophils % (Manual) (0.1-1.2) Platelet Estimate RBC Morph Comment D-Dimer, Quantitative (0.19-0.50) mg/L Sodium (136-145) mEq/L Potassium (3.5-5.1) mEq/L Chloride (98-107) mEq/L Carbon Dioxide (21-32) mEq/L Anion Gap (5-15) BUN (7-18) mg/dL Creatinine (0.55-1.02) mg/dL Est Cr Clr Drug Dosing mL/min Estimated GFR (MDRD) (>60) mL/min BUN/Creatinine Ratio (14-18) Glucose (83-115) mg/dL Calcium (8.5-10.1) mg/dL Magnesium (1.8-2.4) mg/dl Total Bilirubin (0.2-1.0) mg/dL AST (15-37) U/L ALT (14-59) U/L Alkaline Phosphatase (46-116) U/L Troponin I (0.00-0.056) ng/mL Total Protein (6.4-8.2) g/dl Albumin (3.4-5.0) g/dl Globulin gm/dL Albumin/Globulin Ratio (1-2) Urine Color Yellow (Yellow) Urine Appearance Slt cloudy H (Clear) Urine pH 7.0 (5.0-8.0) Ur Specific [place] 1.020 (1.005-1.030) Urine Protein 2+ H (Negative) Urine Glucose (UA) Trace H (Negative) Urine Ketones Negative (Negative) Urine Occult Blood Negative (Negative) Urine Nitrite Negative (Negative) Urine Bilirubin Negative (Negative) Urine Urobilinogen 1.0 (0.2-1.0) Ur Leukocyte Esterase Negative (Negative) Urine RBC 0-5 (0-5) /hpf Urine WBC 0-5 (0-5) /hpf Ur Epithelial Cells 0-5 (0-5) /hpf Urine Bacteria Many H (FEW) /hpf Urine Mucus Not seen (FEW) /hpf Result Diagrams: 02/01/18 09:33 02/01/18 09:33 - Problem List (1) Status post fall SNOMED Code(s): 912921727 ICD Code: Z91.81 - HISTORY OF FALLING Status: Acute Priority: High Current Visit: Yes (2) Fractured coccyx SNOMED Code(s): 396974176 ICD Code: S32.2XXA - FRACTURE OF COCCYX, INITIAL ENCOUNTER FOR CLOSED FRACTURE Status: Acute Priority: High Current Visit: Yes Qualifiers: Encounter type: initial encounter Fracture type: closed Qualified Code(s) : S32.2XXA - Fracture of coccyx, initial encounter for closed fracture (3) Hyperglycemia due to type 2 diabetes mellitus SNOMED Code(s): 024405245070266, 846364060762772 ICD Code: E11.65 - TYPE 2 DIABETES MELLITUS WITH HYPERGLYCEMIA Status: Acute Priority: High Current Visit: Yes Qualifiers: Diabetes mellitus intermediate card tender insulin use: unspecified skilled nursing insulin use status Qualified Code(s): E11.65 - Type 2 diabetes mellitus with hyperglycemia (4) Hypokalemia SNOMED Code(s): 05429039 ICD Code: E87.6 - HYPOKALEMIA Status: Acute Priority: High Current Visit: Yes Problem List Initiated/Reviewed/Updated: Yes Orders Last 24hrs: Active Orders 24 hr Category Date Time Status Admission Status [Patient Status] [ADT] Routine ADT 02/01/18 11:28 Active Bedrest Bedside Commode [RC] ASDIRECTED Care 02/01/18 12:12 Active Cardiac Monitoring [RC] INTERMITTENT Care 02/01/18 12:13 Active EKG Documentation Completion [RC] STAT Care 02/01/18 09:23 Active Height and Weight [RC] DAILY Care 02/01/18 12:12 Active Intake and Output [RC] QSHIFT Care 02/01/18 12:13 Active May Shower [RC] ASDIRECTED Care 02/01/18 12:12 Active Notify Provider Consults [RC] ASDIRECTED Care 02/01/18 12:28 Ordered Orthostatic Vital Signs [RC] STAT Care 02/01/18 09:23 Active Oxygen Therapy [RC] PRN Care 02/01/18 12:12 Active Pulse Oximetry [RC] PRN Care 02/01/18 12:13 Active RT Aerosol Therapy [RC] ASDIRECTED Care 02/01/18 12:14 Active Up With Assistance [RC] ASDIRECTED Care 02/01/18 12:12 Active VTE/DVT Education [RC] PER UNIT ROUTINE Care 02/01/18 12:12 Active Vital Signs [RC] Q4H Care 02/01/18 12:12 Active Consult to Physician [CONS] Routine Cons 02/01/18 12:26 Ordered OT Evaluation and Treatment [CONS] Routine Cons 02/01/18 12:12 Active PT Evaluation and Treatment [CONS] Routine Cons 02/01/18 12:12 Active Heart Healthy Diet [DIET] Diet 02/01/18 Dinner Active Chest 1V Frontal [CR] Stat Exams 02/01/18 09:22 Taken Sacrum Coccyx Min 2V [CR] Stat Exams 02/01/18 09:23 Taken A1C [GLYCOSYLATED HEMOGLOBIN,HGBA1C] [CHEM] AM Lab 02/02/18 05:11 Ordered BASIC METABOLIC PANEL,BMP [CHEM] AM Lab 02/02/18 05:11 Ordered BASIC METABOLIC PANEL,BMP [CHEM] AM Lab 02/03/18 05:11 Ordered BASIC METABOLIC PANEL,BMP [CHEM] AM Lab 02/04/18 05:11 Ordered BASIC METABOLIC PANEL,BMP [CHEM] AM Lab 02/05/18 05:11 Ordered BASIC METABOLIC PANEL,BMP [CHEM] AM Lab 02/06/18 05:11 Ordered CBC WITH AUTO DIFF [HEME] AM Lab 02/02/18 05:11 Ordered CBC WITH AUTO DIFF [HEME] AM Lab 02/03/18 05:11 Ordered CBC WITH AUTO DIFF [HEME] AM Lab 02/04/18 05:11 Ordered CBC WITH AUTO DIFF [HEME] AM Lab 02/05/18 05:11 Ordered CBC WITH AUTO DIFF [HEME] AM Lab 02/06/18 05:11 Ordered CULTURE URINE [RM] Stat Lab 02/01/18 09:25 Received MAGNESIUM [CHEM] AM Lab 02/02/18 05:11 Ordered MAGNESIUM [CHEM] AM Lab 02/03/18 05:11 Ordered MAGNESIUM [CHEM] AM Lab 02/04/18 05:11 Ordered MAGNESIUM [CHEM] AM Lab 02/05/18 05:11 Ordered MAGNESIUM [CHEM] AM Lab 02/06/18 05:11 Ordered Acetaminophen [Tylenol] Med 02/01/18 12:12 Active 650 mg PO Q4H PRN Acetaminophen/oxyCODONE [Percocet 325-5 MG] Med 02/01/18 12:12 Active 1 tab PO Q4H PRN Albuterol [Proventil Neb Soln] Med 02/01/18 12:12 Active 2.5 mg NEB Q2H PRN Albuterol/Ipratropium [DuoNeb 3.0-0.5 MG/3 ML] Med 02/01/18 12:12 Active 3 ml NEB Q4H PRN Bisacodyl [Dulcolax] Med 02/01/18 12:12 Active 5 mg PO DAILY PRN Dextran 70/Hypromellose [Artificial Tears] Med 02/01/18 12:30 Ordered 1 drop EYEBOTH ASDIRECTED Docusate Sodium [Colace] Med 02/01/18 12:12 Active 100 mg PO BID PRN Docusate Sodium/Sennosides [Senna Plus] Med 02/01/18 12:12 Active 1 tab PO BID PRN HYDROmorphone [Dilaudid] Med 02/01/18 12:12 Active 0.25 mg IVPUSH Q2H PRN Irbesartan Med 02/01/18 12:30 Ordered 150 mg PO DAILY Magnesium Hydroxide [Milk of Magnesia] Med 02/01/18 12:12 Active 30 ml PO Q12H PRN Ondansetron [Zofran ODT] Med 02/01/18 12:12 Active 4 mg PO Q4H PRN Ondansetron [Zofran] Med 02/01/18 12:12 Active 4 mg IV Q4H PRN Polyethylene Glycol 3350 [MiraLAX] Med 02/01/18 12:12 Active 17 gm PO DAILY PRN Rosuvastatin [Crestor] Med 02/02/18 09:00 Active 10 mg PO DAILY Temazepam [Restoril] Med 02/01/18 21:00 Active 7.5 mg PO BEDTIME PRN amLODIPine [Norvasc] Med 02/02/18 09:00 Ordered 10 mg PO DAILY hydrALAZINE [Apresoline] Med 02/01/18 12:19 Active 10 mg IVPUSH Q4H PRN metFORMIN Med 02/01/18 21:00 Ordered 1,000 mg PO BID rOPINIRole Med 02/01/18 21:00 Ordered 4 mg PO BEDTIME Sequential Compression Device [OM.PC] Per Unit Routine Oth 02/01/18 12:13 Ordered Resuscitation Status Routine Resus Stat 02/01/18 12:16 Ordered Medication Orders Acetaminophen (Tylenol) 650 mg PO Q4H PRN PRN Reason: Pain (Mild 1-3)/fever Albuterol (Proventil Neb Soln) 2.5 mg NEB Q2H PRN PRN Reason: Shortness Of Breath/wheezing Albuterol/Ipratropium (Duoneb 3.0-0.5 Mg/3 Ml) 3 ml NEB Q4H PRN PRN Reason: Shortness Of Breath/wheezing Amlodipine Besylate (Norvasc) 10 mg PO DAILY ROSALBA Artificial Tears (Isopto Tears 0.5% Ophth Soln) 0 ml EYEBOTH ASDIRECTED ROSALBA Bisacodyl (Dulcolax) 5 mg PO DAILY PRN PRN Reason: Constipation Docusate Sodium (Colace) 100 mg PO BID PRN PRN Reason: Constipation Hydralazine HCl (Apresoline) 10 mg IVPUSH Q4H PRN PRN Reason: Hypertension Hydromorphone HCl (Dilaudid) 0.25 mg IVPUSH Q2H PRN PRN Reason: Pain (severe 7-10) Magnesium Hydroxide (Milk Of Magnesia) 30 ml PO Q12H PRN PRN Reason: Constipation Non-Formulary Medication (Metformin) 1,000 mg PO BID ROSALBA Non-Formulary Medication (Ropinirole) 4 mg PO BEDTIME ROSALBA Non-Formulary Medication (Irbesartan) 150 mg PO DAILY ROSALBA Ondansetron HCl (Zofran Odt) 4 mg PO Q4H PRN PRN Reason: nausea, able to take PO Ondansetron HCl (Zofran) 4 mg IV Q4H PRN PRN Reason: Nausea/Vomiting Oxycodone/Acetaminophen (Percocet 325-5 Mg) 1 tab PO Q4H PRN PRN Reason: Pain (moderate 4-6) Polyethylene Glycol (Miralax) 17 gm PO DAILY PRN PRN Reason: Constipation Rosuvastatin Calcium (Crestor) 10 mg PO DAILY ROSALBA Senna/Docusate Sodium (Senna Plus) 1 tab PO BID PRN PRN Reason: Constipation Temazepam (Restoril) 7.5 mg PO BEDTIME PRN PRN Reason: Sleep Assessment/Plan Comment:: I/P: Acute: S/P Fall * She fell on Tuesday01/27/18 after having syncope getting up from a recliner and landed on her buttocks and has pain in tailbone area. * Multiple falls recently per daughter * States she has been getting "dizzy" and feels her "legs buckle" * Risk factor: multiple pain medications and sleeping pills, past history of knee replacements, restless leg syndrome and neuropathy * Uses walker to ambulate * Lives at home who is also chronically dizzy per pt's daughter and likes to keep the temperature up in their home in the 80's * Orthostatics in ED negative * CM/SW consult * PT/OT Fracture of Coccyx * Sacrum/Coccyx Xray --> formal read pending; superior coccyx fracture per ED * Consult Orthopedic Dr. Terry * PT/OT Diarrhea * Chronic per pt; no h/o recent antibiotic use, travel, lactose intolerance ( doesn't drink milk) * Imodium PRN * Florastor BID * Stool Culture and WBC pending Hypokalemia * Most likely 2/2 Diarrhea * 2.8 * Monitor and Replenish PRN Poor hygiene * Malodorous urine for past few months * U/A in ED not remarkable for UTI * Unable to wipe herself per pt's daughter Fatigue * "Sleeps all day" per daughter and then needs sleeping pill at night * Risk factor: multiple pain medications used throughout day for knee pain * May need to reassess at-home regimen of pain medication * PRN pain medication while here; try to limit opioid use Chronic: Knee pain * R>L * 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 * Chronic pain medication use HTN * Continue Norvasc and Irbesartan HLD * Continue Crestor DM2 w/ peripheral neuropathy * A1C pending * Blood glucose checks QIDACandBED * Sliding insulin scale * Continue Metformin Impaired vision Restless leg syndrome Plan: Admitted to Medical floor She remains stable Other orders as indicated above Routine AM labs Ortho Consult PT/OT Heart Healthy Diet CM/SW for discharge planning--> will likely need SNF d/t multiple falls and poor hygiene DVT Prophylaxis: SCDs GI Prophylaxis: Pepcid Code Status: Full Code; PCP: Dr. Dang
[2018-02-01] MEDS ORDERED: 50% Dextrose in Water 50 ML Syringe IVPUSH PRN (12:38)
[2018-02-01] MEDS ORDERED: Magnesium Oxide 400 MG Tab PO ONE (13:08)
[2018-02-01] MEDS ORDERED: Loperamide 2 MG Cap PO PRN (13:14)
--- NOTE | 2018-02-01 13:14 | CR ---
Chest: Frontal view of the chest is obtained. Comparison: Prior chest x-ray of 10/05/17. Chest CT of 10/05/17 is also available. Heart is enlarged. Tortuous thoracic aorta is seen. Lungs are clear with no acute parenchymal densities. Right shoulder prosthesis is noted. Degenerative change is noted within the left shoulder. Impression: 1. Incidental findings. Nothing acute is seen. Diagnostic code #2
[2018-02-01] MEDS: Losartan 25 MG Tab PO SCH (13:47)
[2018-02-01] MEDS: Saccharomyces Boulardii (Probiotic) 250 MG Cap PO SCH ×2 (13:47→21:44)
--- NOTE | 2018-02-01 14:34 | CR ---
Sacrum and coccyx: Three views of the sacrum and coccyx were obtained. Comparison: No previous study. Joint space narrowing and sclerosis is seen within the pubic symphysis. Severe disc space narrowing is noted within L5-S1. Mild spondylolisthesis is noted at L4-L5 compatible with degenerative apophyseal change. Scattered anterior endplate osteophytes within the lumbar spine are seen. No fracture or other abnormality is seen. Impression: 1. Degenerative change within the lumbar spine and pubic symphysis. 2. Nothing acute is seen on sacrum and coccyx study. Diagnostic code #2
--- NOTE | 2018-02-01 15:58 | CONS ---
CONSULTING PHYSICIAN: Naeem Terry MD DATE OF CONSULTATION: 02/01/2018 REASON FOR CONSULTATION: An orthopedic consultation called for for evaluation of a sacral pelvic fracture. HISTORY OF PRESENT ILLNESS: This is an 87-year-old female who is being evaluated today in the hospital with severe onset of severe pain involving her pelvis and sacrococcyx area secondary to a fall. The patient notes the fall was on 01/27/2018. She was getting out of a chair when she lost her balance, she fell directly onto her buttock region causing the severe pain. Since that time, the patient has developed increasing pain and inability to ambulate, was seen in the emergency room, admitted to the hospital with severe pain reaction of the pelvis and the sacrococcyx area and is in for evaluation. The patient notes she has no complaint of pain involving the thoracic or lumbar spine. She notes also there is nor any type of radicular pain going down her legs. Also denies any hip pain. She notes that the major pain is in the anterior pelvis region and on the posterior aspect of the sacrococcyx between her buttocks at this time. Overall, the patient has had no specific treatment at this time and is able to relate the accident with good clarity with this evaluation. ALLERGIES: No known drug allergies. PAST MEDICAL HISTORY: The patient has a history of macular degeneration with impaired vision, increased cholesterol, and hypertension. She has chronic diarrhea. She wears glasses. She has recurrent urinary tract infections. Also a history of diabetes type 2 and skin cancer on nose many years ago. CURRENT MEDICATIONS: Include irbesartan 150 mg, Crestor, Norvasc, Requip, Ultram, Glucophage, Tylenol, calcium supplements, vitamin supplements, diclofenac local topical application. PAST SURGICAL HISTORY: Positive, she has had previous skin cancer removed. The patient has had cataract surgery; tonsillectomy; appendectomy; cholecystectomy; hysterectomy and salpingo-oophorectomy; knee replacements 3 times on the right, once on the left; and shoulder replacement, right side. SOCIAL HISTORY: The patient is a nonsmoker and nondrinker. She denies any type of bleeding episodes or any type of history of blood clot formation. PHYSICAL EXAMINATION: Today, with the patient in the hospital bed, recumbent, on examination, the patient's lower extremities were 1st evaluated with movement. Straight leg raising bilaterally produced no increased pain in the leg or joint area. Moderate increase of pain between her buttock area and posterior lumbar spine. The right and left hip were stressed, internal and external rotation stresses were negative. The pelvis was then examined with a direct anterior-posterior pressure and lateral compression and pressure compression over the pubic symphysis. The pubic symphysis pressure produced [id number] increased pain in the pubic symphysis itself. The patient was then placed on her side. Percussion palpation of the thoracolumbar spine was negative for any increased pain reaction. She had positive pain on direct pressure palpation over the sacrum-coccyx area between her buttocks. DIAGNOSTIC DATA: Radiology evaluation today, the review of the pelvis x-ray shows a positive severe osteoarthritis involving the pubic symphysis area and the x-ray lateral of the sacrococcyx area shows an incontinuity of the sacrococcyx junction fracture noted, but also significant osteoporosis noted throughout her pelvis and sacrum region. OVERALL IMPRESSION: 1. Acute sacrococcyx fracture of the pelvic region. 2. Severe osteoarthritis, pubic symphysis. 3. Severe pain with inability to ambulate. PLAN: 1. After evaluation, the patient will need to be started on a physical therapy program to begin gait training and ambulation to tolerance as pain will allow. 2. Order a donut pillow for sitting along with a sacral belt to help control the sacrum and pelvis when the patient is up and ambulating. 3. Pain control with medications of pain as needed. 4. The plan will be for the patient to be stabilized. She will need a followup with the [facility]opedic [facility] once she is discharged in approximately 3 weeks. Overall, the patient is stable. MMODAL /[id number]
[2018-02-01] MEDS: Acetaminophen/oxyCODONE 325-5 MG Tab PO PRN ×2 (17:14→21:45)
[2018-02-01] MEDS: metFORMIN 500 MG Tab PO SCH (17:14)
[2018-02-01] MEDS: Insulin Lispro 100 Unit/ML 3 ML KwikPen SUBCUT SCH ×2 (17:15→21:54)
[2018-02-01] MEDS ORDERED: metFORMIN 500 MG Tab PO SCH (21:00)
[2018-02-01] MEDS: Temazepam 7.5 MG Cap PO PRN (21:45)
[2018-02-01] MEDS: Famotidine 20 MG Tab PO SCH (21:45)
[2018-02-01] MEDS: rOPINIRole 1 MG Tab PO SCH (21:45)
[2018-02-01] MEDS: hydrALAZINE 20 MG/ML SDV IVPUSH PRN (21:45)
[2018-02-02] MEDS: hydrALAZINE 20 MG/ML SDV IVPUSH PRN ×2 (00:25→06:28)
[2018-02-02] MEDS: metFORMIN 500 MG Tab PO SCH ×2 (06:23→17:21)
[2018-02-02] MEDS: Acetaminophen/oxyCODONE 325-5 MG Tab PO PRN (06:26)
[2018-02-02] MEDS ORDERED: Potassium Chloride 20 MEQ Tab.ER PO ONE (08:20)
[2018-02-02] MEDS: Rosuvastatin 10 MG Tab PO SCH (08:23)
[2018-02-02] MEDS: amLODIPine 10 MG Tab PO SCH (08:24)
[2018-02-02] MEDS: Losartan 25 MG Tab PO SCH (08:24)
[2018-02-02] MEDS: Saccharomyces Boulardii (Probiotic) 250 MG Cap PO SCH ×2 (08:26→20:44)
[2018-02-02] MEDS: Insulin Lispro 100 Unit/ML 3 ML KwikPen SUBCUT SCH ×5 (08:50→23:15)
[2018-02-02] MEDS ORDERED: IRBESARTAN 150 MG PO SCH (09:00)
[2018-02-02] MEDS ORDERED: cefTRIAXone 1 GM in Sodium Chloride 0.9% 100 ML IV SCH (18:00)
[2018-02-02] MEDS ORDERED: cefTRIAXone 2 GM in Sodium Chloride 0.9% 100 ML IV SCH (18:00)
[2018-02-02] MEDS ORDERED: cefTRIAXone 2 GM Vial IVPUSH SCH (18:00)
--- NOTE | 2018-02-02 18:34 | PCM.PN ---
- General Info Date of Service: 02/02/18 Admission Dx/Problem (Free Text): Admission Diagnosis/Problem Admission Diagnosis/Problem Hypokalemia Subjective Update: In to see Lana. She is sitting up in bed and has taken off her gown as she is "going home". I asked her to please put her gown back on so I could visit with her, and she cooperated. Apparently she has been short with the nurses stating she doesn't want to be here and to leave her alone. I discussed with her why she was feeling so agitated, and she stated she is sad bc she has never been away from her this long and she is supposed to have a birthday republican tomorrow. I discussed with her that d/t her new fracture and UTI, we recommend that she stay here at least a couple more days for treatment with PT, antibiotics, and results of stool culture for her diarrhea. I suggested that she have her stay here with her if she misses him and that maybe she could have the birthday republican here or reschedule. I reminded her that we are here to help her and her health is important. She wanted to go home tomorrow morning, but I discussed with her that she needs to be here a couple of more days for completion of treatment. She was not happy about this and stated "well I don't have a choice". I reminded her that she does, and she can leave at any time, but that it would be against medical advice. She states she understands but is still not happy. I told her that Rina from Case management would come visit with her to go over her options for discharge. At this time, PT is recommending d/c back to [facility] with HEP for LE strengthening/ ROM exercises to maintain strength and mobility while healing. She does not qualify for SNF placement, so home health and community services are to be looked over by Case management with pt. No other concerns from nursing at this time. Will start Rocephin for UTI treatment. Pt to continue working with PT. Recommend D/C in a couple of days. Functional Status: Reports: Pain Controlled, Tolerating Diet, Ambulating (with walker with PT), Urinating (wears Depends) - Review of Systems General: Reports: No Symptoms. Denies: Fever, Chills HEENT: Reports: No Symptoms Pulmonary: Reports: No Symptoms. Denies: Shortness of Breath, Cough Cardiovascular: Reports: No Symptoms. Denies: Chest Pain Gastrointestinal: Reports: No Symptoms. Denies: Abdominal Pain, Diarrhea, Nausea, Vomiting Genitourinary: Reports: Frequency, Incontinence (wears Depends), Other (she does have difficulty wiping herself; will need to look into services for this). Denies: Dysuria, Burning, Pain, Urgency Musculoskeletal: Reports: No Symptoms Skin: Reports: No Symptoms Neurological: Reports: No Symptoms. Denies: Confusion Psychiatric: Reports: Mood Lability, Agitation. Denies: Confusion - Patient Data Vitals - Most Recent: Last Vital Signs Temp 99.0 F 02/02/18 15:41 Pulse 98 02/02/18 15:41 Resp 15 02/02/18 15:41 BP 127/70 02/02/18 15:41 Pulse Ox 92 L 02/02/18 15:41 Orthostatic Blood Pressure [ 174/78 Standing] Orthostatic Blood Pressure [ 163/70 Sitting] Orthostatic Blood Pressure [ 176/73 Supine] Weight - Most Recent: 170 lb I&O - Last 24 Hours: Intake & Output 02/02/18 02/02/18 02/02/18 06:59 14:59 22:59 Intake Total 400 300 520 Output Total 750 420 Balance -350 300 100 Lab Results Last 24 Hours: Laboratory Results - last 24 hr 02/01/18 02/02/18 02/02/18 Range/Units 21:50 06:24 06:35 WBC 10.06 H (3.98-10.04) K/mm3 RBC 4.89 (3.98-5.22) M/mm3 Hgb 14.6 (11.2-15.7) gm/L Hct 44.0 (34.1-44.9) % MCV 90.0 (79.4-94.8) fl MCH 29.9 (25.6-32.2) pg MCHC 33.2 (32.2-35.5) g/dl RDW Std Deviation 44.6 (36.4-46.3) fL Plt Count 264 (182-369) K/mm3 MPV 10.4 (9.4-12.3) fl Neut % (Auto) 64.9 (34.0-71.1) % Lymph % (Auto) 26.5 (19.3-51.7) % [place] % (Auto) 7.5 (4.7-12.5) % Eos % (Auto) 0.5 L (0.7-5.8) Baso % (Auto) 0.4 (0.1-1.2) % Neut # (Auto) 6.53 H (1.56-6.13) K/mm3 Lymph # (Auto) 2.67 (1.18-3.74) K/mm3 [place] # (Auto) 0.75 H (0.24-0.36) K/mm3 Eos # (Auto) 0.05 (0.04-0.36) K/mm3 Baso # (Auto) 0.04 (0.01-0.08) K/mm3 Sodium (136-145) mEq/L Potassium (3.5-5.1) mEq/L Chloride (98-107) mEq/L Carbon Dioxide (21-32) mEq/L Anion Gap (5-15) BUN (7-18) mg/dL Creatinine (0.55-1.02) mg/dL Est Cr Clr Drug Dosing mL/min Estimated GFR (MDRD) (>60) mL/min BUN/Creatinine Ratio (14-18) Glucose (83-115) mg/dL POC Glucose 161 H 172 H (83-110) mg/dL Hemoglobin A1c (4.50-6.20) % Calcium (8.5-10.1) mg/dL Magnesium (1.8-2.4) mg/dl 02/02/18 02/02/18 02/02/18 Range/Units 06:35 06:35 11:06 WBC (3.98-10.04) K/mm3 RBC (3.98-5.22) M/mm3 Hgb (11.2-15.7) gm/L Hct (34.1-44.9) % MCV (79.4-94.8) fl MCH (25.6-32.2) pg MCHC (32.2-35.5) g/dl RDW Std Deviation (36.4-46.3) fL Plt Count (182-369) K/mm3 MPV (9.4-12.3) fl Neut % (Auto) (34.0-71.1) % Lymph % (Auto) (19.3-51.7) % [place] % (Auto) (4.7-12.5) % Eos % (Auto) (0.7-5.8) Baso % (Auto) (0.1-1.2) % Neut # (Auto) (1.56-6.13) K/mm3 Lymph # (Auto) (1.18-3.74) K/mm3 [place] # (Auto) (0.24-0.36) K/mm3 Eos # (Auto) (0.04-0.36) K/mm3 Baso # (Auto) (0.01-0.08) K/mm3 Sodium 141 (136-145) mEq/L Potassium 3.0 L (3.5-5.1) mEq/L Chloride 103 (98-107) mEq/L Carbon Dioxide 27 (21-32) mEq/L Anion Gap 14.0 (5-15) BUN 13 (7-18) mg/dL Creatinine 0.6 (0.55-1.02) mg/dL Est Cr Clr Drug Dosing 52.25 mL/min Estimated GFR (MDRD) > 60 (>60) mL/min BUN/Creatinine Ratio 21.7 H (14-18) Glucose 193 H (83-115) mg/dL POC Glucose 246 H (83-110) mg/dL Hemoglobin A1c 7.90 H (4.50-6.20) % Calcium 9.6 (8.5-10.1) mg/dL Magnesium 1.9 (1.8-2.4) mg/dl 02/02/18 Range/Units 16:57 WBC (3.98-10.04) K/mm3 RBC (3.98-5.22) M/mm3 Hgb (11.2-15.7) gm/L Hct (34.1-44.9) % MCV (79.4-94.8) fl MCH (25.6-32.2) pg MCHC (32.2-35.5) g/dl RDW Std Deviation (36.4-46.3) fL Plt Count (182-369) K/mm3 MPV (9.4-12.3) fl Neut % (Auto) (34.0-71.1) % Lymph % (Auto) (19.3-51.7) % [place] % (Auto) (4.7-12.5) % Eos % (Auto) (0.7-5.8) Baso % (Auto) (0.1-1.2) % Neut # (Auto) (1.56-6.13) K/mm3 Lymph # (Auto) (1.18-3.74) K/mm3 [place] # (Auto) (0.24-0.36) K/mm3 Eos # (Auto) (0.04-0.36) K/mm3 Baso # (Auto) (0.01-0.08) K/mm3 Sodium (136-145) mEq/L Potassium (3.5-5.1) mEq/L Chloride (98-107) mEq/L Carbon Dioxide (21-32) mEq/L Anion Gap (5-15) BUN (7-18) mg/dL Creatinine (0.55-1.02) mg/dL Est Cr Clr Drug Dosing mL/min Estimated GFR (MDRD) (>60) mL/min BUN/Creatinine Ratio (14-18) Glucose (83-115) mg/dL POC Glucose 215 H (83-110) mg/dL Hemoglobin A1c (4.50-6.20) % Calcium (8.5-10.1) mg/dL Magnesium (1.8-2.4) mg/dl Lorenzo Results Last 24 Hours: Microbiology 02/01/18 09:25 Urine Culture - Preliminary Urine, Quick Cath (In-Out) Gram Positive Cocci Med Orders - Current: Current Medications Acetaminophen (Tylenol) 650 mg PO Q4H PRN PRN Reason: Pain (Mild 1-3)/fever Albuterol (Proventil Neb Soln) 2.5 mg NEB Q2H PRN PRN Reason: Shortness Of Breath/wheezing Albuterol/Ipratropium (Duoneb 3.0-0.5 Mg/3 Ml) 3 ml NEB Q4H PRN PRN Reason: Shortness Of Breath/wheezing Amlodipine Besylate (Norvasc) 10 mg PO DAILY [facility] Last Admin: 02/02/18 08:24 Dose: 10 mg Artificial Tears (Isopto Tears 0.5% Ophth Soln) 0 ml EYEBOTH ASDIRECTED [facility] Last Admin: 02/02/18 09:21 Dose: 2 drop Bisacodyl (Dulcolax) 5 mg PO DAILY PRN PRN Reason: Constipation Dextrose/Water (Dextrose 50% In Water) 50 ml IVPUSH ASDIRECTED PRN PRN Reason: Hypoglycemia Docusate Sodium (Colace) 100 mg PO BID PRN PRN Reason: Constipation Famotidine (Pepcid) 20 mg PO BEDTIME [facility] Last Admin: 02/01/18 21:45 Dose: 20 mg Hydralazine HCl (Apresoline) 20 mg IVPUSH Q6H PRN PRN Reason: Hypertension Last Admin: 02/02/18 06:28 Dose: 20 mg Hydromorphone HCl (Dilaudid) 0.25 mg IVPUSH Q2H PRN PRN Reason: Pain (severe 7-10) Ceftriaxone Sodium 2 gm/ (Sodium Chloride) 100 mls @ 100 mls/hr IV Q24H [facility] Insulin Human Lispro (Humalog) 0 unit SUBCUT QIDACANDBED [facility]; Protocol Last Admin: 02/02/18 17:21 Dose: 2 units Loperamide HCl (Imodium) 2 mg PO Q4H PRN PRN Reason: Diarrhea Losartan Potassium (Cozaar) 50 mg PO DAILY [facility] Last Admin: 02/02/18 08:24 Dose: 50 mg Magnesium Hydroxide (Milk Of Magnesia) 30 ml PO Q12H PRN PRN Reason: Constipation Metformin HCl (Glucophage) 1,000 mg PO BIDMEALS [facility] Last Admin: 02/02/18 17:21 Dose: 1,000 mg Ondansetron HCl (Zofran Odt) 4 mg PO Q4H PRN PRN Reason: nausea, able to take PO Ondansetron HCl (Zofran) 4 mg IV Q4H PRN PRN Reason: Nausea/Vomiting Last Admin: 02/02/18 08:26 Dose: 4 mg Oxycodone/Acetaminophen (Percocet 325-5 Mg) 1 tab PO Q4H PRN PRN Reason: Pain (moderate 4-6) Last Admin: 02/02/18 06:26 Dose: 1 tab Polyethylene Glycol (Miralax) 17 gm PO DAILY PRN PRN Reason: Constipation Ropinirole HCl (Requip) 4 mg PO BEDTIME [facility] Last Admin: 02/01/18 21:45 Dose: 4 mg Rosuvastatin Calcium (Crestor) 10 mg PO DAILY [facility] Last Admin: 02/02/18 08:23 Dose: 10 mg Saccharomyces Boulardii (Florastor) 250 mg PO BID [facility] Last Admin: 02/02/18 08:26 Dose: 250 mg Senna/Docusate Sodium (Senna Plus) 1 tab PO BID PRN PRN Reason: Constipation Temazepam (Restoril) 7.5 mg PO BEDTIME PRN PRN Reason: Sleep Last Admin: 02/01/18 21:45 Dose: 7.5 mg Terazosin HCl (Hytrin) 2 mg PO BEDTIME [facility] Last Admin: 02/02/18 05:11 Dose: Not Given Discontinued Medications Ceftriaxone Sodium (Rocephin) 2 gm IVPUSH Q24H [facility] Last Admin: 02/02/18 18:07 Dose: Not Given Hydralazine HCl (Apresoline) 10 mg IVPUSH Q4H PRN PRN Reason: Hypertension Last Admin: 02/01/18 15:44 Dose: 10 mg Magnesium Oxide (Magnesium Oxide) 400 mg PO ONETIME ONE Stop: 02/01/18 13:09 Last Admin: 02/01/18 13:47 Dose: 400 mg Non-Formulary Medication (Irbesartan) 150 mg PO DAILY [facility] Potassium Chloride (Klor-Con M20) 40 meq PO ONETIME ONE Stop: 02/01/18 10:30 Last Admin: 02/01/18 11:08 Dose: 40 meq Potassium Chloride (Klor-Con M20) 60 meq PO DAILY ONE Stop: 02/02/18 08:21 Last Admin: 02/02/18 08:43 Dose: 60 meq - Exam Quality Assessment: DVT Prophylaxis. No: Supplemental Oxygen General: Alert, Oriented, Cooperative HEENT: Pupils Equal, Pupils Reactive, EOMI, Mucous Membr. Moist/[place] Neck: Supple Lungs: Clear to Auscultation, Normal Respiratory Effort Cardiovascular: Regular Rate, Regular Rhythm GI/Abdominal Exam: Normal Bowel Sounds, Soft, Non-Tender, No Organomegaly, No Distention, No Abnormal Bruit, No Mass (Female) Exam: Deferred Back Exam: Normal Inspection, Full Range of Motion Extremities: Normal Inspection, Normal Range of Motion, Non-Tender, No Pedal Edema, Normal Capillary Refill Peripheral Pulses: 2+: Posterior Tibial (L), Posterior Tibial (R), Dorsalis Pedis (L), Dorsalis Pedis (R) Skin: Warm, Dry, Intact Neurological: No New Focal Deficit, Strength Equal Bilateral, Sensation Intact, Cranial Nerves Intact (grossly). No: Normal Gait (uses walker) Psy/Mental Status: Alert, Normal Affect, Agitated, Other (sad (situational)) - Problem List & Annotations (1) Status post fall SNOMED Code(s): 133636236 Code(s): Z91.81 - HISTORY OF FALLING Status: Acute Priority: High Current Visit: Yes (2) Fractured coccyx SNOMED Code(s): 833344212 Code(s): S32.2XXA - FRACTURE OF COCCYX, INITIAL ENCOUNTER FOR CLOSED FRACTURE Status: Acute Priority: High Current Visit: Yes Qualifiers: Encounter type: initial encounter Fracture type: closed Qualified Code(s) : S32.2XXA - Fracture of coccyx, initial encounter for closed fracture (3) Hyperglycemia due to type 2 diabetes mellitus SNOMED Code(s): 587478501823559, 147870863056155 Code(s): E11.65 - TYPE 2 DIABETES MELLITUS WITH HYPERGLYCEMIA Status: Acute Priority: High Current Visit: Yes Qualifiers: 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 Qualified Code(s): E11.65 - Type 2 diabetes mellitus with hyperglycemia (4) Hypokalemia SNOMED Code(s): 66578147 Code(s): E87.6 - HYPOKALEMIA Status: Acute Priority: High Current Visit : Yes - Problem List Review Problem List Initiated/Reviewed/Updated: Yes - My Orders Last 24 Hours: My Active Orders 02/01/18 21:00 Famotidine [Pepcid] 20 mg PO BEDTIME Temazepam [Restoril] 7.5 mg PO BEDTIME PRN rOPINIRole [Requip] 4 mg PO BEDTIME 02/02/18 09:00 Rosuvastatin [Crestor] 10 mg PO DAILY amLODIPine [Norvasc] 10 mg PO DAILY 02/02/18 18:00 cefTRIAXone [Rocephin] 2 gm Sodium Chloride 0.9% [Normal Saline] 100 ml IV Q24H 02/03/18 05:11 BASIC METABOLIC PANEL,BMP [CHEM] AM CBC WITH AUTO DIFF [HEME] AM MAGNESIUM [CHEM] AM 02/04/18 05:11 BASIC METABOLIC PANEL,BMP [CHEM] AM CBC WITH AUTO DIFF [HEME] AM MAGNESIUM [CHEM] AM 02/05/18 05:11 BASIC METABOLIC PANEL,BMP [CHEM] AM CBC WITH AUTO DIFF [HEME] AM MAGNESIUM [CHEM] AM 02/06/18 05:11 BASIC METABOLIC PANEL,BMP [CHEM] AM CBC WITH AUTO DIFF [HEME] AM MAGNESIUM [CHEM] AM - Plan Plan:: I/P: Acute: S/P Fall * She fell on Tuesday01/27/18 after having syncope getting up from a recliner and landed on her buttocks and has pain in tailbone area. * Multiple falls recently per daughter * States she has been getting "dizzy" and feels her "legs buckle" * Risk factor: multiple pain medications and sleeping pills, past history of knee replacements, restless leg syndrome and neuropathy, UTI, electrolyte abnormalities * Uses walker to ambulate * Lives at home who is also chronically dizzy per pt's daughter and likes to keep the temperature up in their home in the 80's * Orthostatics in ED negative * CM/SW consult * PT/OT Fracture of Coccyx * Sacrum/Coccyx Xray --> superior coccyx fracture per ED physician * 1. Degenerative change within the lumbar spine and pubic symphysis. * 2. Nothing acute is seen on sacrum and coccyx study. * Consult Orthopedic Dr. Terry: * "Incontinuity of the sacrococcyx junction fracture noted" * PT gait training and ambulation with sacral belt * Donut pillow for sitting * Pain control PRN * Plan is to stabilize and f/u with outpt ortho in 3 weeks * PT/OT Diarrhea * Chronic per pt; no h/o recent antibiotic use, travel, lactose intolerance ( doesn't drink milk) * Imodium PRN * Florastor BID * Stool Culture and WBC pending Hypokalemia * Most likely 2/2 Diarrhea * 2.8 * Monitor and Replenish PRN UTI * Most likely 2/2 poor hygiene (difficulty wiping self per pt's daughter) and incontinence * Malodorous urine and frequency for past few months * Wears Depends * U/A in ED not remarkable for UTI * Urine culture--> Gram Positive Cocci >100k * Start Rocephin Fatigue * "Sleeps all day" per daughter and then needs sleeping pill at night * Risk factor: multiple pain medications used throughout day for knee pain * May need to reassess at-home regimen of pain medication * PRN pain medication while here; try to limit opioid use Chronic: Knee pain * R>L * 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 * Chronic pain medication use HTN * Continue Norvasc and Irbesartan HLD * Continue Crestor DM2 w/ peripheral neuropathy; uncontrolled * A1C 7.9 * Elevated blood sugars while here * Blood glucose checks QIDACandBED * Sliding insulin scale * Continue Metformin * F/U with PCP for further evaluation Impaired vision Restless leg syndrome Plan: Admitted to Medical floor She remains stable Other orders as indicated above Routine AM labs Ortho Consult PT/OT Heart Healthy Diet CM/SW for discharge planning--> recommend community services DVT Prophylaxis: SCDs GI Prophylaxis: Pepcid Code Status: Full Code; PCP: Dr. Dang
[2018-02-02] MEDS: rOPINIRole 1 MG Tab PO SCH (20:43)
[2018-02-02] MEDS: Famotidine 20 MG Tab PO SCH (20:44)
[2018-02-02] MEDS: Temazepam 7.5 MG Cap PO PRN (20:54)
[2018-02-03] MEDS: Acetaminophen/oxyCODONE 325-5 MG Tab PO PRN (05:59)
[2018-02-03] MEDS: metFORMIN 500 MG Tab PO SCH (06:00)
[2018-02-03 08:20] VITALS: BP 147/61
[2018-02-03] MEDS: Losartan 25 MG Tab PO SCH (08:52)
[2018-02-03] MEDS: Insulin Lispro 100 Unit/ML 3 ML KwikPen SUBCUT SCH ×3 (08:52→16:52)
[2018-02-03] MEDS: Saccharomyces Boulardii (Probiotic) 250 MG Cap PO SCH (08:53)
[2018-02-03] MEDS: Rosuvastatin 10 MG Tab PO SCH (08:53)
[2018-02-03] MEDS: amLODIPine 10 MG Tab PO SCH (08:53)
[2018-02-03] MEDS ORDERED: Magnesium Sulfate/Water 2 GM in Premix Bag 1 BAG IV ONE (10:45)
[2018-02-03] MEDS ORDERED: Potassium Chloride 20 MEQ Tab.ER PO ONE (10:45)
--- NOTE | 2018-02-03 17:17 | PCM.DCSUM1 ---
Discharge Summary - Hospital Course HPI Initial Comments: The patient states that she has been feeling lightheaded with urinary frequency for the past few months. The patient's daughter states that the patient has had malodorous urine for the past few months, as well. The patient states that she passed out after getting up from a recliner this past 01/27/2018. She believes that she landed on her buttocks, and she subsequently had pain in her tailbone area. She now presents to the ED because her tailbone pain has not improved. No recent fever, nausea, vomiting, constipation, or diarrhea. The patient's PCP is Dr. Dang, who has not been made aware of this condition. Diagnosis: Stroke: No - Discharge Data Discharge Date: 02/03/18 (ADMIT 02/01/18) Discharge Disposition: Home, Self-Care 01 Condition: Good - Discharge Diagnosis/Problem(s) (1) Status post fall SNOMED Code(s): 413323126 ICD Code: Z91.81 - HISTORY OF FALLING Status: Acute Priority: High Current Visit: Yes (2) Fractured coccyx SNOMED Code(s): 825060856 ICD Code: S32.2XXA - FRACTURE OF COCCYX, INITIAL ENCOUNTER FOR CLOSED FRACTURE Status: Acute Priority: High Current Visit: Yes Qualifiers: Encounter type: initial encounter Fracture type: closed Qualified Code(s) : S32.2XXA - Fracture of coccyx, initial encounter for closed fracture (3) Hyperglycemia due to type 2 diabetes mellitus SNOMED Code(s): 592606516268901, 814577171724538 ICD Code: E11.65 - TYPE 2 DIABETES MELLITUS WITH HYPERGLYCEMIA Status: Acute Priority: High Current Visit: Yes Qualifiers: Diabetes 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 insulin use: unspecified fdc insulin use status Qualified Code(s): E11.65 - Type 2 diabetes mellitus with hyperglycemia (4) Hypokalemia SNOMED Code(s): 46091090 ICD Code: E87.6 - HYPOKALEMIA Status: Acute Priority: High Current Visit: Yes - Patient Summary/Data Operative Procedure(s) Performed: none Complications: none Consults: Consultations 02/01/18 12:12 OT Evaluation and Treatment [CONS] Routine PT Evaluation and Treatment [CONS] Routine 02/01/18 12:26 Consult to Physician [CONS] Routine 02/01/18 17:31 Consult to Spiritual Care [CONS] Routine Labs Pending at D/C: none Recommended Follow-up Testing/Procedures: Follow-up with orthopedic doctor in 3 weeks after discharge Physical Therapy recommends home exercise program Wear Pelvic sling while up walking F/U with PCP in 7-10 days: * T-dap immunization * No stool culture was able to be obtained while here due to lack of BM, so suggest that if you have diarrhea again to see your PCP to get stool culture to street light repairer helper treatment approach. * Your electrolytes you have been low while here, most likely due to your previous diarrhea, Magnesium and Potassium. Will send you home with medication for this, but you should have your electrolytes rechecked by your PCP in 7-10 days. * Elevated A1C 7.9 and blood sugars while here; may need to evaluate diet/ metformin with PCP. Planned Operative Procedure(s) after DC: none Hospital Course: I/P: Acute: S/P Fall * She fell on Tuesday01/27/18 after having syncope getting up from a recliner and landed on her buttocks and has pain in tailbone area. * Multiple falls recently per daughter * States she has been getting "dizzy" and feels her "legs buckle" * Risk factor: multiple pain medications and sleeping pills, past history of knee replacements, restless leg syndrome and neuropathy, UTI, electrolyte abnormalities * Uses walker to ambulate * Lives at home who is also chronically dizzy per pt's daughter and likes to keep the temperature up in their home in the 80's * Orthostatics in ED negative * CM/SW consult * PT/OT Fracture of Coccyx, Improved * Sacrum/Coccyx Xray --> superior coccyx fracture per ED physician * 1. Degenerative change within the lumbar spine and pubic symphysis. * 2. Nothing acute is seen on sacrum and coccyx study. * Consult Orthopedic Dr. Terry: * "Incontinuity of the sacrococcyx junction fracture noted" * PT gait training and ambulation with sacral belt * Donut pillow for sitting * Pain control PRN * Plan is to stabilize and f/u with outpt ortho in 3 weeks * PT/OT * Able to ambulate well today UTI * Most likely 2/2 poor hygiene (difficulty wiping self per pt's daughter) and incontinence * Malodorous urine and frequency for past few months * Wears Depends * U/A in ED not remarkable for UTI * Urine culture--> Aerococcus Urinae >100k * Start Rocephin--> send home with Keflex (susceptible to Rocephin per culture) Fatigue, Improved * "Sleeps all day" per daughter and then needs sleeping pill at night * Risk factor: multiple pain medications used throughout day for knee pain * May need to reassess at-home regimen of pain medication * PRN pain medication while here; try to limit opioid use Hypomagnesemia * Most likely 2/2 Diarrhea * 1.7--> 1.9--> 1.7 * Monitor and Replenish PRN Resolved: Hypokalemia, Resolved * Most likely 2/2 Diarrhea * 2.8--> 3.5 * Monitor and Replenish PRN Diarrhea, Resolved * Chronic per pt; no h/o recent antibiotic use, travel, lactose intolerance ( doesn't drink milk) * Imodium PRN * Florastor BID * Stool Culture and WBC pending Chronic: Knee pain * R>L * 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 * Chronic pain medication use HTN * Continue Norvasc and Irbesartan HLD * Continue Crestor DM2 w/ peripheral neuropathy; uncontrolled * A1C 7.9 * Elevated blood sugars while here--> highest 246 * Blood glucose checks QIDACandBED * Sliding insulin scale * Continue Metformin * F/U with PCP for further evaluation Impaired vision Restless leg syndrome Plan: Admitted to Medical floor She remains stable Other orders as indicated above Routine AM labs Ortho Consult PT/OT Heart Healthy Diet CM/SW for discharge planning--> recommend community services DVT Prophylaxis: SCDs GI Prophylaxis: Pepcid Code Status: Full Code; PCP: Dr. Dang Lana did well here after being admitted for coccyx fx s/p fall at home. It was found that she does have a UTI with Aerococcus Urinae per the urine culture, which may also have contributed to her fall, and was treated with Rocephin while here. She also had hypomagnesemia and hypokalemia here, most likely d/t her chronic diarrhea, which resolved while here. Unfortunately we were unable to collect stool cultures during her visit to further investigate the cause of the diarrhea d/t cessation of the diarrhea and no BM. Lana will be sent home today on Keflex 500 BID x 5 days, Magnesium Oxide 400mg Q Daily x 7 days, KCl 20meq Q daily x 3 days, Florastor 250mg BID x12 days. PT recommends home exercise program and to wear pelvic sling while up walking. CM/SW recommend utilizing community services to help with hygiene and meals. She was also seen by orthopedic Dr. Terry, who deems her to be stable and would like her to f/ u 3 weeks after D/C. She should also f/u with her PCP in 7-10 days for stool culture if diarrhea returns to street light repairer helper treatment, repeat BMP to check Mg and K levels and to assess if she requires further treatment, evaluation of Diabetic management as her A1C is 7.9 and blood glucose was elevated here, and to receive a T-Dap immunization. She will be D/C'd back home to [facility] at [facility] today. - Patient Instructions Diet: Usual Diet as Tolerated Activity: As Tolerated Driving: Do Not Drive Showering/Bathing: May Shower Notify Provider of: Fever, Increased Pain, Nausea and/or Vomiting - Discharge Plan *PRESCRIPTION DRUG MONITORING PROGRAM REVIEWED*: Not Applicable *COPY OF PRESCRIPTION DRUG MONITORING REPORT IN PATIENT ELE: Not Applicable Prescriptions/Med Rec: cephALEXin [Keflex] 500 mg PO BID 5 Days #10 cap Magnesium Oxide 400 mg PO DAILY #7 tab Potassium Chloride 20 meq PO DAILY #3 tablet.er Saccharomyces Boulardii [Florastor] 250 mg PO BID #24 cap Home Medications: Home Meds Irbesartan 150 mg PO DAILY 12/23/16 [History] Rosuvastatin [Crestor] 10 mg PO DAILY 12/23/16 [History] amLODIPine [Norvasc] 10 mg PO DAILY 12/23/16 [History] rOPINIRole [Requip] 4 mg PO BEDTIME 12/23/16 [History] traMADol [Ultram] 50 mg PO Q6H PRN 12/23/16 [History] Dextran 70/Hypromellose [Artificial Tears] 1 drop EYEBOTH ASDIRECTED 07/25/17 [ History] Acetaminophen [Tylenol] 650 mg PO Q6H PRN 10/05/17 [History] Ascorbate Calcium [Vitamin C] 500 mg PO DAILY 10/05/17 [History] Calcium Carb & Citrate/Vit D3 [Citracal + D ER] 1 tab PO DAILY 10/05/17 [History ] B2/Vit A,C & E/Lut/Zeaxanth/Mn [Icaps] 2 cap PO BID 02/01/18 [History] Diclofenac Sodium 1 applic TOP TID 02/01/18 [History] metFORMIN [Glucophage] 1,000 mg PO BID 02/01/18 [History] Magnesium Oxide 400 mg PO DAILY #7 tab 02/03/18 [Rx] Potassium Chloride 20 meq PO DAILY #3 tablet.er 02/03/18 [Rx] Saccharomyces Boulardii [Florastor] 250 mg PO BID #24 cap 02/03/18 [Rx] cephALEXin [Keflex] 500 mg PO BID 5 Days #10 cap 02/03/18 [Rx] Patient Handouts: Hypokalemia, Tailbone Injury, [id number] Referrals: Shankar Dang MD [Primary Care Provider] - (Please call and schedule a post-hospital follow-up appointment with your primary care doctor, Dr. Dang, within 2 weeks of discharge. ) - Discharge Summary/Plan Comment DC Time >30 min.: Yes (45) - General Info Date of Service: 02/03/18 Admission Dx/Problem (Free Text: Admission Diagnosis/Problem Admission Diagnosis/Problem Hypokalemia Subjective Update: In to see Lana. She is lying in bed talking on the phone, and is not interested in talking to me until she is off the phone. I waited for a few minutes in the room, but decided to come back for assessment when she was ready to participate. When I return to the room, she states "It's my birthday and I don't want to be here" and "I'm having a terrible day because I'm here". She repeats this sentiment many times. I told her that she will get to go home today just like she wants, and she is still not happy. Pt was unpleasant during my ROS and PE and was not very cooperative in general. She has no new complaints , except that she is here. She did go walking today per nursing and did very well. Unable to collect a stool to sample for cause of diarrhea, and pt states she has not had a BM. I told her we could wait and do it here, but because she wants to go home on her birthday she states she would rather do it outpt with her PCP. No other concerns from nursing. She will be D/C'd back home today. Functional Status: Reports: Pain Controlled, Tolerating Diet, Ambulating (with walker and belt), Urinating - Review of Systems General: Reports: No Symptoms. Denies: Fever, Chills HEENT: Reports: No Symptoms Pulmonary: Reports: No Symptoms. Denies: Shortness of Breath, Cough Cardiovascular: Reports: No Symptoms. Denies: Chest Pain Gastrointestinal: Reports: No Symptoms. Denies: Abdominal Pain, Diarrhea, Nausea, Vomiting Genitourinary: Reports: No Symptoms. Denies: Dysuria, Frequency, Burning, Pain , Urgency Musculoskeletal: Reports: No Symptoms Skin: Reports: No Symptoms Neurological: Reports: Gait Disturbance (uses walker) Psychiatric: Reports: Agitation - Patient Data Vitals - Most Recent: Last Vital Signs Temp 99.1 F 02/03/18 07:58 Pulse 96 02/03/18 08:00 Resp 16 02/03/18 07:58 BP 147/61 H 02/03/18 08:00 Pulse Ox 95 02/03/18 08:00 Orthostatic Blood Pressure [ 174/78 Standing] Orthostatic Blood Pressure [ 163/70 Sitting] Orthostatic Blood Pressure [ 176/73 Supine] Weight - Most Recent: 171 lb 6 oz I&O - Last 24 hours: Intake & Output 02/03/18 02/03/18 02/03/18 06:59 14:59 22:59 Intake Total 400 300 180 Balance 400 300 180 Lab Results - Last 24 hrs: Laboratory Results - last 24 hr 02/02/18 02/03/18 02/03/18 Range/Units 20:43 06:05 06:05 WBC 8.63 (3.98-10.04) K/mm3 RBC 4.50 (3.98-5.22) M/mm3 Hgb 13.4 (11.2-15.7) gm/L Hct 41.4 (34.1-44.9) % MCV 92.0 (79.4-94.8) fl MCH 29.8 (25.6-32.2) pg MCHC 32.4 (32.2-35.5) g/dl RDW Std Deviation 45.7 (36.4-46.3) fL Plt Count 213 (182-369) K/mm3 MPV 10.7 (9.4-12.3) fl Neut % (Auto) 67.1 (34.0-71.1) % Lymph % (Auto) 25.3 (19.3-51.7) % [place] % (Auto) 7.0 (4.7-12.5) % Eos % (Auto) 0.3 L (0.7-5.8) Baso % (Auto) 0.1 (0.1-1.2) % Neut # (Auto) 5.79 (1.56-6.13) K/mm3 Lymph # (Auto) 2.18 (1.18-3.74) K/mm3 [place] # (Auto) 0.60 H (0.24-0.36) K/mm3 Eos # (Auto) 0.03 L (0.04-0.36) K/mm3 Baso # (Auto) 0.01 (0.01-0.08) K/mm3 Sodium 141 (136-145) mEq/L Potassium 3.5 (3.5-5.1) mEq/L Chloride 104 (98-107) mEq/L Carbon Dioxide 27 (21-32) mEq/L Anion Gap 13.5 (5-15) BUN 18 (7-18) mg/dL Creatinine 0.7 (0.55-1.02) mg/dL Est Cr Clr Drug Dosing 43.94 mL/min Estimated GFR (MDRD) > 60 (>60) mL/min BUN/Creatinine Ratio 25.7 H (14-18) Glucose 175 H (83-115) mg/dL POC Glucose 167 H (83-110) mg/dL Calcium 9.3 (8.5-10.1) mg/dL Magnesium 1.7 L (1.8-2.4) mg/dl 02/03/18 02/03/18 02/03/18 Range/Units 06:05 10:59 16:48 WBC (3.98-10.04) K/mm3 RBC (3.98-5.22) M/mm3 Hgb (11.2-15.7) gm/L Hct (34.1-44.9) % MCV (79.4-94.8) fl MCH (25.6-32.2) pg MCHC (32.2-35.5) g/dl RDW Std Deviation (36.4-46.3) fL Plt Count (182-369) K/mm3 MPV (9.4-12.3) fl Neut % (Auto) (34.0-71.1) % Lymph % (Auto) (19.3-51.7) % [place] % (Auto) (4.7-12.5) % Eos % (Auto) (0.7-5.8) Baso % (Auto) (0.1-1.2) % Neut # (Auto) (1.56-6.13) K/mm3 Lymph # (Auto) (1.18-3.74) K/mm3 [place] # (Auto) (0.24-0.36) K/mm3 Eos # (Auto) (0.04-0.36) K/mm3 Baso # (Auto) (0.01-0.08) K/mm3 Sodium (136-145) mEq/L Potassium (3.5-5.1) mEq/L Chloride (98-107) mEq/L Carbon Dioxide (21-32) mEq/L Anion Gap (5-15) BUN (7-18) mg/dL Creatinine (0.55-1.02) mg/dL Est Cr Clr Drug Dosing mL/min Estimated GFR (MDRD) (>60) mL/min BUN/Creatinine Ratio (14-18) Glucose (83-115) mg/dL POC Glucose 173 H 229 H 203 H (83-110) mg/dL Calcium (8.5-10.1) mg/dL Magnesium (1.8-2.4) mg/dl AKBAR Results - Last 24 hrs: Microbiology 02/01/18 09:25 Urine Culture - Final Urine, Quick Cath (In-Out) Aerococcus Urinae Med Orders - Current: Current Medications Acetaminophen (Tylenol) 650 mg PO Q4H PRN PRN Reason: Pain (Mild 1-3)/fever Albuterol (Proventil Neb Soln) 2.5 mg NEB Q2H PRN PRN Reason: Shortness Of Breath/wheezing Albuterol/Ipratropium (Duoneb 3.0-0.5 Mg/3 Ml) 3 ml NEB Q4H PRN PRN Reason: Shortness Of Breath/wheezing Amlodipine Besylate (Norvasc) 10 mg PO DAILY [facility] Last Admin: 02/03/18 08:53 Dose: 10 mg Artificial Tears (Isopto Tears 0.5% Ophth Soln) 0 ml EYEBOTH ASDIRECTED [facility] Last Admin: 02/02/18 09:21 Dose: 2 drop Bisacodyl (Dulcolax) 5 mg PO DAILY PRN PRN Reason: Constipation Dextrose/Water (Dextrose 50% In Water) 50 ml IVPUSH ASDIRECTED PRN PRN Reason: Hypoglycemia Docusate Sodium (Colace) 100 mg PO BID PRN PRN Reason: Constipation Famotidine (Pepcid) 20 mg PO BEDTIME [facility] Last Admin: 02/02/18 20:44 Dose: 20 mg Hydralazine HCl (Apresoline) 20 mg IVPUSH Q6H PRN PRN Reason: Hypertension Last Admin: 02/02/18 06:28 Dose: 20 mg Hydromorphone HCl (Dilaudid) 0.25 mg IVPUSH Q2H PRN PRN Reason: Pain (severe 7-10) Ceftriaxone Sodium 2 gm/ (Sodium Chloride) 100 mls @ 100 mls/hr IV Q24H [facility] Last Admin: 02/02/18 18:22 Dose: 100 mls/hr Insulin Human Lispro (Humalog) 0 unit SUBCUT QIDACANDBED [facility]; Protocol Last Admin: 02/03/18 16:52 Dose: 2 units Loperamide HCl (Imodium) 2 mg PO Q4H PRN PRN Reason: Diarrhea Losartan Potassium (Cozaar) 50 mg PO DAILY [facility] Last Admin: 02/03/18 08:52 Dose: 50 mg Magnesium Hydroxide (Milk Of Magnesia) 30 ml PO Q12H PRN PRN Reason: Constipation Metformin HCl (Glucophage) 1,000 mg PO BIDMEALS [facility] Last Admin: 02/03/18 06:00 Dose: 1,000 mg Ondansetron HCl (Zofran Odt) 4 mg PO Q4H PRN PRN Reason: nausea, able to take PO Ondansetron HCl (Zofran) 4 mg IV Q4H PRN PRN Reason: Nausea/Vomiting Last Admin: 02/02/18 08:26 Dose: 4 mg Oxycodone/Acetaminophen (Percocet 325-5 Mg) 1 tab PO Q4H PRN PRN Reason: Pain (moderate 4-6) Last Admin: 02/03/18 05:59 Dose: 1 tab Polyethylene Glycol (Miralax) 17 gm PO DAILY PRN PRN Reason: Constipation Ropinirole HCl (Requip) 4 mg PO BEDTIME [facility] Last Admin: 02/02/18 20:43 Dose: 4 mg Rosuvastatin Calcium (Crestor) 10 mg PO DAILY [facility] Last Admin: 02/03/18 08:53 Dose: 10 mg Saccharomyces Boulardii (Florastor) 250 mg PO BID [facility] Last Admin: 02/03/18 08:53 Dose: 250 mg Senna/Docusate Sodium (Senna Plus) 1 tab PO BID PRN PRN Reason: Constipation Temazepam (Restoril) 7.5 mg PO BEDTIME PRN PRN Reason: Sleep Last Admin: 02/02/18 20:54 Dose: 7.5 mg Terazosin HCl (Hytrin) 2 mg PO BEDTIME [facility] Last Admin: 02/02/18 20:44 Dose: 2 mg Discontinued Medications Ceftriaxone Sodium (Rocephin) 2 gm IVPUSH Q24H [facility] Last Admin: 02/02/18 18:07 Dose: Not Given Hydralazine HCl (Apresoline) 10 mg IVPUSH Q4H PRN PRN Reason: Hypertension Last Admin: 02/01/18 15:44 Dose: 10 mg Magnesium Sulfate 2 gm/ Premix 50 mls @ 25 mls/hr IV ONETIME ONE Stop: 02/03/18 12:44 Last Admin: 02/03/18 10:46 Dose: 25 mls/hr Magnesium Oxide (Magnesium Oxide) 400 mg PO ONETIME ONE Stop: 02/01/18 13:09 Last Admin: 02/01/18 13:47 Dose: 400 mg Non-Formulary Medication (Irbesartan) 150 mg PO DAILY [facility] Potassium Chloride (Klor-Con M20) 40 meq PO ONETIME ONE Stop: 02/01/18 10:30 Last Admin: 02/01/18 11:08 Dose: 40 meq Potassium Chloride (Klor-Con M20) 60 meq PO DAILY ONE Stop: 02/02/18 08:21 Last Admin: 02/02/18 08:43 Dose: 60 meq Potassium Chloride (Klor-Con M20) 40 meq PO ONETIME ONE Stop: 02/03/18 10:46 Last Admin: 02/03/18 10:46 Dose: 40 meq - Exam Quality Assessment: Reports: DVT Prophylaxis General: Reports: Alert, Oriented, No Acute Distress. Denies: Cooperative HEENT: Reports: Pupils Equal, Pupils Reactive, EOMI, Mucous Membr. Moist/[place]ine Neck: Reports: Supple Lungs: Reports: Clear to Auscultation, Normal Respiratory Effort Cardiovascular: Reports: Regular Rate, Regular Rhythm GI/Abdominal Exam: Normal Bowel Sounds, Soft, Non-Tender, No Organomegaly, No Distention, No Abnormal Bruit, No Mass, Pelvis Stable (Female) Exam: Deferred Rectal (Female) Exam: Deferred Back Exam: Reports: Normal Inspection, Full Range of Motion Extremities: Normal Inspection, Normal Range of Motion, Non-Tender, No Pedal Edema, Normal Capillary Refill Skin: Reports: Warm, Dry, Intact Neurological: Reports: No New Focal Deficit, Cranial Nerves Intact (grossly) Psy/Mental Status: Reports: Alert, Labile Mood, Agitated
== END 2018-02-03 17:40 | disposition home or self-care (01) | DRG 552 ==
LOC: JD.ED 08:50 → JD.MS 11:28
PROVIDERS: ADMIT Internal Medicine Cardiovascular Disease; ATTEND Internal Medicine Cardiovascular Disease
DX: S32.2XXA Fracture of coccyx, initial encounter for closed fracture (principal); W07.XXXA Fall from chair, initial encounter; Z91.81 History of falling; R55 Syncope and collapse; E87.6 Hypokalemia; E83.42 Hypomagnesemia; E78.00 Pure hypercholesterolemia, unspecified; K52.9 Noninfective gastroenteritis and colitis, unspecified; R29.6 Repeated falls; H35.30 Unspecified macular degeneration; E11.65 Type 2 diabetes mellitus with hyperglycemia; E11.42 Type 2 diabetes mellitus with diabetic polyneuropathy; Z79.84 Long term (current) use of oral hypoglycemic drugs; I10 Essential (primary) hypertension; R42 Dizziness and giddiness; R46.0 Very low level of personal hygiene; G25.81 Restless legs syndrome; H54.7 Unspecified visual loss; Z87.440 Personal history of urinary (tract) infections; Z85.828 Personal history of other malignant neoplasm of skin; Z96.653 Presence of artificial knee joint, bilateral; Z96.611 Presence of right artificial shoulder joint; Z79.899 Other long term (current) drug therapy
CPT/HCPCS: 36415; 71045; 72220; 80053; 81001; 83735; 84484; 85007; 85027; 85379; 87086; 87088; 87184; 93005; 99285; A9270; 80048; 82962; 83036; 85025; 87641; 93010; 97110-GP; 97116-GP; 97161-GP; 97165-GO; 97530-GO; J0360; J0696; J1815; J2405; J3475; J7030

== ENCOUNTER 2018-07-13 21:28 | Inpatient (IN) | payer MEDICARE, BC ==
[2018-07-13] MEDS ORDERED: Sodium Chloride 0.9% 1,000 ML IV STA (21:56)
[2018-07-13] MEDS ORDERED: Sodium Chloride 0.9% 10 ML Syringe FLUSH PRN (21:56)
[2018-07-13] MEDS ORDERED: Ondansetron 4 MG/2 ML SDV IVPUSH ONE (21:56)
--- NOTE | 2018-07-13 22:21 | EDM.PDOC ---
ED HPI GENERAL MEDICAL PROBLEM - General Chief Complaint: Gastrointestinal Problem Stated Complaint: [facility] ambulance Time Seen by Provider: 07/13/18 21:35 Source of Information: Reports: Patient, EMS, Family, Group Home Records History Limitations: Reports: No Limitations - History of Present Illness INITIAL COMMENTS - FREE TEXT/NARRATIVE: The patient presents from the care home with nausea, vomiting, diarrhea, and generalized weakness. She had the nausea, vomiting and diarrhea for a few days. She saw Dr Richard today and she was diagnosed with hypokalemia and shingles. She has a rash on the left side of her face. She was given oral potassium and acyclovir. She now has generalized weakness. She has a slight headache. She has some chest pain and shortness of breath. She has generalized abdominal pain with the nausea, vomiting and diarrhea. She has no dysuria. Her daughter says a couple days she was checked for a UTI and that was normal. She normally wears oxygen but lately she has been going good and not needing any but tonight her oxygen saturations were low at 87% so my nurse put her on some oxygen by nasal cannula. She denies fever, chills and cough. Onset: Gradual Duration: Day(s): Location: Reports: Chest, Abdomen Quality: Reports: Ache Severity: Mild Improves with: Reports: None Worsens with: Reports: None Associated Symptoms: Reports: Chest Pain, Headaches, Nausea/Vomiting, Shortness of Breath. Denies: Cough, Fever/Chills Chest Pain Score (Numeric/FACES): 3 - Related Data Allergies Allergy/AdvReac Type Severity Reaction Status Date / Time No Known Allergies Allergy Verified 04/01/18 01:51 Home Meds: Home Meds Irbesartan 150 mg PO DAILY 12/23/16 [History] Rosuvastatin [Crestor] 10 mg PO DAILY 12/23/16 [History] amLODIPine [Norvasc] 10 mg PO DAILY 12/23/16 [History] rOPINIRole [Requip] 4 mg PO BEDTIME 12/23/16 [History] traMADol [Ultram] 50 mg PO BID 12/23/16 [History] Diclofenac Sodium 1 applic TOP TID 02/01/18 [History] metFORMIN [Glucophage] 1,000 mg PO BID 02/01/18 [History] FLUoxetine HCl [Prozac] 20 mg PO DAILY #30 capsule 04/06/18 [Rx] Insulin Glarg,Human.Rec.Analog [Lantus] 30 units SQ DAILY 07/13/18 [History] Insulin Glargine,Hum.Rec.Anlog [Basaglar Kwikpen U-100] 30 units SQ DAILY [History] Mirabegron [Myrbetriq] 25 mg PO DAILY 07/13/18 [History] Potassium Chloride 40 meq PO DAILY 07/13/18 [History] Saccharomyces Boulardii [Florastor] 250 mg PO BID 07/13/18 [History] traZODone HCl [Trazodone HCl] 12.5 mg PO BEDTIME 07/13/18 [History] valACYclovir [Valtrex] 1,000 mg PO BID 07/13/18 [History] Past Medical History HEENT History: Reports: Impaired Vision, Macular Degeneration Other HEENT History: wears eyeglasses. 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 - Infectious Disease History Infectious Disease History: Reports: Chicken Pox, Measles, Mumps, Shingles - Past Surgical History HEENT Surgical History: Reports: Cataract Surgery, Tonsillectomy Cardiovascular Surgical History: Reports: None GI Surgical History: Reports: Appendectomy, Cholecystectomy Female Surgical History: Reports: Hysterectomy, Salpingo-Oophorectomy Neurological Surgical History: Reports: None Musculoskeletal Surgical History: Reports: Knee Replacement, Shoulder Replacement Social & Family History - Family History Family Medical History: Noncontributory - Tobacco Use Smoking Status *Q: Never Smoker - Caffeine Use Caffeine Use: Reports: Coffee - Living Situation & Occupation Living situation: Reports: , with Spouse Occupation: Retired ED ROS GENERAL - Review of Systems Review Of Systems: See Below Constitutional: Reports: Weakness, Fatigue. Denies: Fever, Chills HEENT: Reports: No Symptoms Respiratory: Reports: Shortness of Breath. Denies: Cough Cardiovascular: Reports: Chest Pain Endocrine: Reports: Fatigue GI/Abdominal: Reports: Abdominal Pain, Diarrhea, Nausea, Vomiting : Reports: No Symptoms Musculoskeletal: Reports: No Symptoms ED EXAM, GI/ABD - Physical Exam Exam: See Below Exam Limited By: No Limitations General Appearance: Alert, No Apparent Distress Ears: Normal External Exam Nose: Normal Inspection Head: Atraumatic, Normocephalic Neck: Normal Inspection, Other (Papular rash to the left side of her gace) Respiratory/Chest: No Respiratory Distress, Lungs Clear, Normal Breath Sounds Cardiovascular: Regular Rate, Rhythm, No Edema, No Murmur GI/Abdominal Exam: Soft, No Organomegaly, No Mass, Tender (Mild generalized tenderness) Back Exam: Normal Inspection Extremities: Normal Inspection Course - Vital Signs Last Recorded V/S: Last Vital Signs Temp 97.6 F 07/13/18 21:31 Pulse 90 07/13/18 21:31 Resp 21 H 07/13/18 21:31 BP 153/70 H 07/13/18 21:31 Pulse Ox 91 L 07/13/18 21:31 - Orders/Labs/Meds Orders: Active Orders 24 hr Category Date Time Status EKG Documentation Completion [RC] ASDIRECTED Care 07/13/18 22:23 Active Peripheral IV Care [RC] . DIRECTED Care 07/13/18 21:57 Active Chest 1V Frontal [CR] Stat Exams 07/13/18 21:56 Taken Potassium Chloride [KCl 10 MEQ in Water 100 ML] 10 meq Med 07/13/18 23:30 Active Premix Bag 1 bag IV ASDIRECTED Sodium Chloride 0.9% [Saline Flush] Med 07/13/18 21:56 Active 10 ml FLUSH ASDIRECTED PRN ED Antiemetic Medication Reflex [OM.PC] Stat Oth 07/13/18 21:57 Ordered Peripheral IV Insertion Adult [OM.PC] Stat Oth 07/13/18 21:56 Ordered EKG 12 Lead [EK] Stat Ther 07/13/18 22:22 Ordered Medication Orders Potassium Chloride 10 meq/ (Premix) 100 mls @ 100 mls/hr IV ASDIRECTED ROSALBA Last Admin: 07/13/18 23:25 Dose: 100 mls/hr Sodium Chloride (Saline Flush) 10 ml FLUSH ASDIRECTED PRN PRN Reason: Keep Vein Open Last Admin: 07/13/18 22:19 Dose: 10 ml Labs: Laboratory Tests 07/13/18 07/13/18 07/13/18 Range/Units 22:25 22:40 22:40 WBC 11.79 H (3.98-10.04) K/mm3 RBC 4.60 (3.98-5.22) M/mm3 Hgb 13.5 (11.2-15.7) gm/L Hct 39.4 (34.1-44.9) % MCV 85.7 (79.4-94.8) fl MCH 29.3 (25.6-32.2) pg MCHC 34.3 (32.2-35.5) g/dl RDW Std Deviation 41.0 (36.4-46.3) fL Plt Count 272 (182-369) K/mm3 MPV 9.8 (9.4-12.3) fl Neut % (Auto) 72.9 H (34.0-71.1) % Lymph % (Auto) 17.6 L (19.3-51.7) % [place] % (Auto) 8.7 (4.7-12.5) % Eos % (Auto) 0.1 L (0.7-5.8) Baso % (Auto) 0.4 (0.1-1.2) % Neut # (Auto) 8.60 H (1.56-6.13) K/mm3 Lymph # (Auto) 2.08 (1.18-3.74) K/mm3 [place] # (Auto) 1.02 H (0.24-0.36) K/mm3 Eos # (Auto) 0.01 L (0.04-0.36) K/mm3 Baso # (Auto) 0.05 (0.01-0.08) K/mm3 Manual Slide Review Abnormal smear Sodium 140 (136-145) mEq/L Potassium 2.4 L* (3.5-5.1) mEq/L Chloride 100 (98-107) mEq/L Carbon Dioxide 30 (21-32) mEq/L Anion Gap 12.4 (5-15) BUN 21 H (7-18) mg/dL Creatinine 0.8 (0.55-1.02) mg/dL Est Cr Clr Drug Dosing 38.44 mL/min Estimated GFR (MDRD) > 60 (>60) mL/min BUN/Creatinine Ratio 26.3 H (14-18) Glucose 80 L (83-115) mg/dL Calcium 8.9 (8.5-10.1) mg/dL Magnesium 1.4 L (1.8-2.4) mg/dl Total Bilirubin 0.6 (0.2-1.0) mg/dL AST 12 L (15-37) U/L ALT 17 (14-59) U/L Alkaline Phosphatase 80 (46-116) U/L Troponin I 0.026 (0.00-0.056) ng/mL Total Protein 6.9 (6.4-8.2) g/dl Albumin 3.1 L (3.4-5.0) g/dl Globulin 3.8 gm/dL Albumin/Globulin Ratio 0.8 L (1-2) Lipase 117 (73-393) U/L Urine Color Yellow (Yellow) Urine Appearance Clear (Clear) Urine pH 6.0 (5.0-8.0) Ur Specific [place] 1.025 (1.005-1.030) Urine Protein 2+ H (Negative) Urine Glucose (UA) Negative (Negative) Urine Ketones Trace H (Negative) Urine Occult Blood Negative (Negative) Urine Nitrite Negative (Negative) Urine Bilirubin 1+ H (Negative) Urine Urobilinogen 2.0 H (0.2-1.0) Ur Leukocyte Esterase Negative (Negative) Urine RBC 0-5 (0-5) /hpf Urine WBC 0-5 (0-5) /hpf Ur Epithelial Cells 5-10 H (0-5) /hpf Urine Bacteria Few (FEW) /hpf Urine Mucus Moderate H (FEW) /hpf Meds: Medications Generic Name Dose Route Start Last Admin Trade Name Freq PRN Reason Stop Dose Admin Potassium Chloride 10 meq/ 100 mls @ 100 mls/hr 07/13/18 23:30 07/13/18 23:25 Premix IV 100 mls/hr ASDIRECTED ROSALBA Administration Sodium Chloride 10 ml 07/13/18 21:56 07/13/18 22:19 Saline Flush FLUSH 10 ml ASDIRECTED PRN Administration Keep Vein Open Discontinued Medications Generic Name Dose Route Start Last Admin Trade Name Freq PRN Reason Stop Dose Admin Hydromorphone HCl 0.25 mg 07/13/18 22:31 07/13/18 22:35 Dilaudid IVPUSH 07/13/18 22:32 0.25 mg ONETIME ONE Administration Sodium Chloride 1,000 mls @ 1,000 mls/hr 07/13/18 21:56 07/13/18 22:18 Normal Saline IV 07/13/18 22:55 1,000 mls/hr .BOLUS STA Administration Ondansetron HCl 4 mg 07/13/18 21:56 07/13/18 22:19 Zofran IVPUSH 07/13/18 21:57 4 mg ONETIME ONE Administration - Re-Assessments/Exams Free Text/Narrative Re-Assessment/Exam: 07/13/18 22:22 I ordered an IV NS 500ml bolus, zofran 4mg IV, labs, UA, EKG and CXR. 07/13/18 23:42 Her CXR shows cardiomegaly but nothing acute. Her EKG shows NSR with Q waves in the anterior leads and no acute changes. Her WBC is slightly elevated at 11.79. Her K was low at 2.4. Her magnesium was low at 1.4. Her troponin was negative. Her lipase was normal. Her UA shows no UTI. I have ordered 10meq of KCL. I feel she needs to be admitted. I am not sure why she is hyoxic at this time. She needs oxygen at times. I will replace more potassium and magnesium. We will try to get a stool sample. She will be admitted to the hospitalist service. Departure - Departure Time of Disposition: 23:45 Disposition: Admitted As Inpatient 66 Condition: Fair Clinical Impression: Generalized weakness, Hypokalemia, Hypomagnesemia Nausea & vomiting Qualifiers: Vomiting type: unspecified Vomiting Intractability: non-intractable Qualified Code(s): R11.2 - Nausea with vomiting, unspecified Diarrhea Qualifiers: Diarrhea type: unspecified type Qualified Code(s): R19.7 - Diarrhea, unspecified Abdominal pain Qualifiers: Abdominal location: generalized Qualified Code(s): R10.84 - Generalized abdominal pain Chest pain Qualifiers: Chest pain type: unspecified Qualified Code(s): R07.9 - Chest pain, unspecified - Discharge Information Forms: ED Department Discharge - My Orders Last 24 Hours: My Active Orders 07/13/18 21:56 Chest 1V Frontal [CR] Stat Sodium Chloride 0.9% [Saline Flush] 10 ml FLUSH ASDIRECTED PRN Peripheral IV Insertion Adult [OM.PC] Stat 07/13/18 21:57 Peripheral IV Care [RC] . DIRECTED ED Antiemetic Medication Reflex [OM.PC] Stat 07/13/18 22:22 EKG 12 Lead [EK] Stat 07/13/18 22:23 EKG Documentation Completion [RC] ASDIRECTED 07/13/18 23:30 Potassium Chloride [KCl 10 MEQ in Water 100 ML] 10 meq Premix Bag 1 bag IV ASDIRECTED - Assessment/Plan Last 24 Hours: My Active Orders 07/13/18 21:56 Chest 1V Frontal [CR] Stat Sodium Chloride 0.9% [Saline Flush] 10 ml FLUSH ASDIRECTED PRN Peripheral IV Insertion Adult [OM.PC] Stat 07/13/18 21:57 Peripheral IV Care [RC] . DIRECTED ED Antiemetic Medication Reflex [OM.PC] Stat 07/13/18 22:22 EKG 12 Lead [EK] Stat 07/13/18 22:23 EKG Documentation Completion [RC] ASDIRECTED 07/13/18 23:30 Potassium Chloride [KCl 10 MEQ in Water 100 ML] 10 meq Premix Bag 1 bag IV ASDIRECTED
[2018-07-13] MEDS ORDERED: HYDROmorphone 1 MG/ML Syringe IVPUSH ONE (22:31)
[2018-07-13] MEDS ORDERED: Potassium Chloride 10 MEQ in Premix Bag 1 BAG IV SCH (23:30)
[2018-07-14] MEDS ORDERED: Magnesium Sulfate/Water 2 GM in Premix Bag 1 BAG IV ONE ×2 (00:02→16:15)
[2018-07-14] MEDS: NS + KCl 20mEq/L 1,000 ML IV SCH ×3 (00:10→20:07)
[2018-07-14] MEDS ORDERED: Ondansetron 4 MG/2 ML SDV IVPUSH PRN (00:51)
--- NOTE | 2018-07-14 06:07 | CR ---
Chest: Portable view of the chest was obtained. Comparison: Prior chest x-ray of 04/06/18. Heart size is within normal limits for portable technique. Tortuous thoracic aorta is seen. Lungs are clear with no acute parenchymal change. Right shoulder prosthesis is seen. Stable degenerative change is noted within the left shoulder. Mild scoliosis is seen. Bony structures are osteopenic. Impression: 1. Findings as noted above. Nothing acute is appreciated. Diagnostic code #2
[2018-07-14] MEDS: Losartan 25 MG Tab PO SCH (09:28)
[2018-07-14] MEDS: FLUoxetine 20 MG Cap PO SCH (09:28)
[2018-07-14] MEDS: amLODIPine 10 MG Tab PO SCH (09:28)
[2018-07-14] MEDS: Potassium Chloride 10 MEQ in Premix Bag 1 BAG IV SCH ×4 (09:28→13:12)
[2018-07-14] MEDS: valACYclovir 500 MG Tab PO SCH ×2 (09:28→20:53)
[2018-07-14] MEDS: Insulin Lispro 100 Units/ML 3 ML Vial SUBCUT SCH ×3 (12:02→21:30)
--- NOTE | 2018-07-14 15:36 | PCM.HP ---
H&P History of Present Illness - General Date of Service: 07/14/18 Admit Problem/Dx: Admission Diagnosis/Problem Admission Diagnosis/Problem Hypokalemia Source of Information: Patient, Prison Records, Provider, RN History Limitations: Reports: Altered Mental Status - History of Present Illness Initial Comments - Free Text/Narative: History was mainly derived from the emergency room physician and nursing because patient is a poor historian. Patient was sent to the emergency room via EMS after developing nausea, vomiting, and diarrhea. Patient reportedly had this for a couple of days and developed a rash on the left side of her face. She was seen by her primary care provider Dr. Jose Manuel shabazz who started her on valacyclovir. She was also found to have a low potassium at her PCPs office and low magnesium in our emergency room. Patient complains to me about generalized weakness and fatigue. Report from nursing states that her retirement called and is concerned about her gradual worsening of strength over the last couple of weeks. She does have generalized abdominal pain, no dysuria, and had a UA apparently a couple of days ago which was normal. She does use oxygen occasionally at home and yesterday her oxygen saturations were as low as 87%. Chest Pain Score (Numeric/FACES): 3 - Related Data Allergies/Adverse Reactions: Allergies Allergy/AdvReac Type Severity Reaction Status Date / Time No Known Allergies Allergy Verified 04/01/18 01:51 Home Medications: Home Meds Irbesartan 150 mg PO DAILY 12/23/16 [History] Rosuvastatin [Crestor] 10 mg PO DAILY 12/23/16 [History] amLODIPine [Norvasc] 10 mg PO DAILY 12/23/16 [History] rOPINIRole [Requip] 4 mg PO BEDTIME 12/23/16 [History] traMADol [Ultram] 50 mg PO BID 12/23/16 [History] Diclofenac Sodium 1 applic TOP TID 02/01/18 [History] metFORMIN [Glucophage] 1,000 mg PO BID 02/01/18 [History] FLUoxetine HCl [Prozac] 20 mg PO DAILY #30 capsule 04/06/18 [Rx] Insulin Glarg,Human.Rec.Analog [Lantus] 30 units SQ DAILY 07/13/18 [History] Insulin Glargine,Hum.Rec.Anlog [Basaglar Kwikpen U-100] 30 units SQ DAILY [History] Mirabegron [Myrbetriq] 25 mg PO DAILY 07/13/18 [History] Potassium Chloride 40 meq PO DAILY 07/13/18 [History] Saccharomyces Boulardii [Florastor] 250 mg PO BID 07/13/18 [History] traZODone HCl [Trazodone HCl] 12.5 mg PO BEDTIME 07/13/18 [History] valACYclovir [Valtrex] 1,000 mg PO BID 07/13/18 [History] Past Medical History HEENT History: Reports: Impaired Vision, Macular Degeneration Other HEENT History: wears eyeglasses. 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 - Infectious Disease History Infectious Disease History: Reports: Shingles - Past Surgical History HEENT Surgical History: Reports: Cataract Surgery, Tonsillectomy Cardiovascular Surgical History: Reports: None GI Surgical History: Reports: Appendectomy, Cholecystectomy Female Surgical History: Reports: Hysterectomy, Salpingo-Oophorectomy Neurological Surgical History: Reports: None Musculoskeletal Surgical History: Reports: Knee Replacement, Shoulder Replacement Social & Family History - Family History Family Medical History: Noncontributory - Tobacco Use Smoking Status *Q: Never Smoker - Caffeine Use Caffeine Use: Reports: Coffee - Recreational Drug Use Recreational Drug Use: No - Living Situation & Occupation Living situation: Reports: , with Spouse Occupation: Retired H&P Review of Systems - Review of Systems: Review Of Systems: See Below General: Reports: Weakness, Fatigue, Decreased Appetite HEENT: Reports: No Symptoms Pulmonary: Reports: No Symptoms. Denies: Shortness of Breath Cardiovascular: Reports: No Symptoms. Denies: Chest Pain, Palpitations Gastrointestinal: Reports: Abdominal Pain, Anorexia, Diarrhea Genitourinary: Reports: No Symptoms. Denies: Dysuria Musculoskeletal: Reports: Arm Pain Skin: Reports: No Symptoms Psychiatric: Reports: Confusion Neurological: Reports: Confusion, Weakness Exam - Exam Exam: See Below - Vital Signs Vital Signs: Last Vital Signs Temp 99.1 F 07/14/18 07:36 Pulse 88 07/14/18 07:36 Resp 20 07/14/18 03:13 BP 158/79 H 07/14/18 09:28 Pulse Ox 91 L 07/14/18 07:36 Weight: 152 lb 14.39 oz - Exam Quality Assessment: Supplemental Oxygen General: Cooperative HEENT: Conjunctiva Clear, Mucosa Moist & [place] Neck: Supple, Trachea Midline Lungs: Clear to Auscultation, Normal Respiratory Effort Cardiovascular: Regular Rate, Regular Rhythm GI/Abdominal Exam: Normal Bowel Sounds, Soft, Tender. No: Distended, Guarding, Rigid, Rebound Extremities: Normal Inspection, No Pedal Edema Skin: Warm, Dry, Intact Neurological: No: Strength Equal Bilateral (Decreased strength in left side. 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 Left leg she was able to lift it off the bed.) Neuro Extensive - Mental Status: Memory Loss-Remote Events, Memory Loss-Recent Events, Nl Response to Commands Neuro Extensive - Motor, Sensory, Reflexes: Motor/Sensory Deficits - Patient Data Lab Results Last 24 hrs: Laboratory Results - last 24 hr 07/13/18 07/13/18 07/13/18 Range/Units 22:25 22:40 22:40 WBC 11.79 H (3.98-10.04) K/mm3 RBC 4.60 (3.98-5.22) M/mm3 Hgb 13.5 (11.2-15.7) gm/L Hct 39.4 (34.1-44.9) % MCV 85.7 (79.4-94.8) fl MCH 29.3 (25.6-32.2) pg MCHC 34.3 (32.2-35.5) g/dl RDW Std Deviation 41.0 (36.4-46.3) fL Plt Count 272 (182-369) K/mm3 MPV 9.8 (9.4-12.3) fl Neut % (Auto) 72.9 H (34.0-71.1) % Lymph % (Auto) 17.6 L (19.3-51.7) % [place] % (Auto) 8.7 (4.7-12.5) % Eos % (Auto) 0.1 L (0.7-5.8) Baso % (Auto) 0.4 (0.1-1.2) % Neut # (Auto) 8.60 H (1.56-6.13) K/mm3 Lymph # (Auto) 2.08 (1.18-3.74) K/mm3 [place] # (Auto) 1.02 H (0.24-0.36) K/mm3 Eos # (Auto) 0.01 L (0.04-0.36) K/mm3 Baso # (Auto) 0.05 (0.01-0.08) K/mm3 Manual Slide Review Abnormal smear Sodium 140 (136-145) mEq/L Potassium 2.4 L* (3.5-5.1) mEq/L Chloride 100 (98-107) mEq/L Carbon Dioxide 30 (21-32) mEq/L Anion Gap 12.4 (5-15) BUN 21 H (7-18) mg/dL Creatinine 0.8 (0.55-1.02) mg/dL Est Cr Clr Drug Dosing 38.44 mL/min Estimated GFR (MDRD) > 60 (>60) mL/min BUN/Creatinine Ratio 26.3 H (14-18) Glucose 80 L (83-115) mg/dL POC Glucose (83-110) mg/dL Calcium 8.9 (8.5-10.1) mg/dL Phosphorus (2.6-4.7) mg/dL Magnesium 1.4 L (1.8-2.4) mg/dl Total Bilirubin 0.6 (0.2-1.0) mg/dL AST 12 L (15-37) U/L ALT 17 (14-59) U/L Alkaline Phosphatase 80 (46-116) U/L Troponin I 0.026 (0.00-0.056) ng/mL Total Protein 6.9 (6.4-8.2) g/dl Albumin 3.1 L (3.4-5.0) g/dl Globulin 3.8 gm/dL Albumin/Globulin Ratio 0.8 L (1-2) Lipase 117 (73-393) U/L Urine Color Yellow (Yellow) Urine Appearance Clear (Clear) Urine pH 6.0 (5.0-8.0) Ur Specific [place] 1.025 (1.005-1.030) Urine Protein 2+ H (Negative) Urine Glucose (UA) Negative (Negative) Urine Ketones Trace H (Negative) Urine Occult Blood Negative (Negative) Urine Nitrite Negative (Negative) Urine Bilirubin 1+ H (Negative) Urine Urobilinogen 2.0 H (0.2-1.0) Ur Leukocyte Esterase Negative (Negative) Urine RBC 0-5 (0-5) /hpf Urine WBC 0-5 (0-5) /hpf Ur Epithelial Cells 5-10 H (0-5) /hpf Urine Bacteria Few (FEW) /hpf Urine Mucus Moderate H (FEW) /hpf C.difficile 027-NAP1-B1 C. difficile Tox (PCR) MRSA (PCR) 07/14/18 07/14/18 07/14/18 Range/Units 01:30 06:00 06:28 WBC (3.98-10.04) K/mm3 RBC (3.98-5.22) M/mm3 Hgb (11.2-15.7) gm/L Hct (34.1-44.9) % MCV (79.4-94.8) fl MCH (25.6-32.2) pg MCHC (32.2-35.5) g/dl RDW Std Deviation (36.4-46.3) fL Plt Count (182-369) K/mm3 MPV (9.4-12.3) fl Neut % (Auto) (34.0-71.1) % Lymph % (Auto) (19.3-51.7) % [place] % (Auto) (4.7-12.5) % Eos % (Auto) (0.7-5.8) Baso % (Auto) (0.1-1.2) % Neut # (Auto) (1.56-6.13) K/mm3 Lymph # (Auto) (1.18-3.74) K/mm3 [place] # (Auto) (0.24-0.36) K/mm3 Eos # (Auto) (0.04-0.36) K/mm3 Baso # (Auto) (0.01-0.08) K/mm3 Manual Slide Review Sodium 142 (136-145) mEq/L Potassium 2.6 L (3.5-5.1) mEq/L Chloride 101 (98-107) mEq/L Carbon Dioxide 32 (21-32) mEq/L Anion Gap 11.6 (5-15) BUN 17 (7-18) mg/dL Creatinine 0.7 (0.55-1.02) mg/dL Est Cr Clr Drug Dosing 43.94 mL/min Estimated GFR (MDRD) > 60 (>60) mL/min BUN/Creatinine Ratio 24.3 H (14-18) Glucose 61 L (83-115) mg/dL POC Glucose 79 L (83-110) mg/dL Calcium 9.1 (8.5-10.1) mg/dL Phosphorus (2.6-4.7) mg/dL Magnesium (1.8-2.4) mg/dl Total Bilirubin 0.6 (0.2-1.0) mg/dL AST 14 L (15-37) U/L ALT 17 (14-59) U/L Alkaline Phosphatase 78 (46-116) U/L Troponin I 0.028 (0.00-0.056) ng/mL Total Protein 6.9 (6.4-8.2) g/dl Albumin 3.0 L (3.4-5.0) g/dl Globulin 3.9 gm/dL Albumin/Globulin Ratio 0.8 L (1-2) Lipase (73-393) U/L Urine Color (Yellow) Urine Appearance (Clear) Urine pH (5.0-8.0) Ur Specific [place] (1.005-1.030) Urine Protein (Negative) Urine Glucose (UA) (Negative) Urine Ketones (Negative) Urine Occult Blood (Negative) Urine Nitrite (Negative) Urine Bilirubin (Negative) Urine Urobilinogen (0.2-1.0) Ur Leukocyte Esterase (Negative) Urine RBC (0-5) /hpf Urine WBC (0-5) /hpf Ur Epithelial Cells (0-5) /hpf Urine Bacteria (FEW) /hpf Urine Mucus (FEW) /hpf C.difficile 027-NAP1-B1 C. difficile Tox (PCR) MRSA (PCR) Negative 07/14/18 07/14/18 07/14/18 Range/Units 08:20 11:06 13:05 WBC (3.98-10.04) K/mm3 RBC (3.98-5.22) M/mm3 Hgb (11.2-15.7) gm/L Hct (34.1-44.9) % MCV (79.4-94.8) fl MCH (25.6-32.2) pg MCHC (32.2-35.5) g/dl RDW Std Deviation (36.4-46.3) fL Plt Count (182-369) K/mm3 MPV (9.4-12.3) fl Neut % (Auto) (34.0-71.1) % Lymph % (Auto) (19.3-51.7) % [place] % (Auto) (4.7-12.5) % Eos % (Auto) (0.7-5.8) Baso % (Auto) (0.1-1.2) % Neut # (Auto) (1.56-6.13) K/mm3 Lymph # (Auto) (1.18-3.74) K/mm3 [place] # (Auto) (0.24-0.36) K/mm3 Eos # (Auto) (0.04-0.36) K/mm3 Baso # (Auto) (0.01-0.08) K/mm3 Manual Slide Review Sodium 138 (136-145) mEq/L Potassium 3.1 L (3.5-5.1) mEq/L Chloride 101 (98-107) mEq/L Carbon Dioxide 29 (21-32) mEq/L Anion Gap 11.1 (5-15) BUN 10 (7-18) mg/dL Creatinine 0.8 (0.55-1.02) mg/dL Est Cr Clr Drug Dosing 38.11 mL/min Estimated GFR (MDRD) > 60 (>60) mL/min BUN/Creatinine Ratio 12.5 L (14-18) Glucose 212 H (83-115) mg/dL POC Glucose 126 H (83-110) mg/dL Calcium 8.3 L (8.5-10.1) mg/dL Phosphorus 2.0 L (2.6-4.7) mg/dL Magnesium 1.7 L (1.8-2.4) mg/dl Total Bilirubin (0.2-1.0) mg/dL AST (15-37) U/L ALT (14-59) U/L Alkaline Phosphatase (46-116) U/L Troponin I (0.00-0.056) ng/mL Total Protein (6.4-8.2) g/dl Albumin (3.4-5.0) g/dl Globulin gm/dL Albumin/Globulin Ratio (1-2) Lipase (73-393) U/L Urine Color (Yellow) Urine Appearance (Clear) Urine pH (5.0-8.0) Ur Specific [place] (1.005-1.030) Urine Protein (Negative) Urine Glucose (UA) (Negative) Urine Ketones (Negative) Urine Occult Blood (Negative) Urine Nitrite (Negative) Urine Bilirubin (Negative) Urine Urobilinogen (0.2-1.0) Ur Leukocyte Esterase (Negative) Urine RBC (0-5) /hpf Urine WBC (0-5) /hpf Ur Epithelial Cells (0-5) /hpf Urine Bacteria (FEW) /hpf Urine Mucus (FEW) /hpf C.difficile 027-NAP1-B1 Presumptive negative C. difficile Tox (PCR) Negative MRSA (PCR) Result Diagrams: 07/13/18 22:40 07/14/18 13:05 Lorenzo Results Last 24 hrs: Microbiology 07/14/18 08:20 Stool for WBCs - Final Stool / Feces NO WBC SEEN - Problem List (1) Hypokalemia SNOMED Code(s): 27401693 ICD Code: E87.6 - HYPOKALEMIA Status: Acute Priority: High Current Visit: Yes (2) Abdominal pain SNOMED Code(s): 11312610 ICD Code: R10.9 - UNSPECIFIED ABDOMINAL PAIN Status: Acute Current Visit : Yes Qualifiers: Abdominal location: generalized Qualified Code(s): R10.84 - Generalized abdominal pain (3) Diarrhea SNOMED Code(s): 25421749 ICD Code: R19.7 - DIARRHEA, UNSPECIFIED Status: Acute Current Visit: Yes Qualifiers: Diarrhea type: unspecified type Qualified Code(s): R19.7 - Diarrhea, unspecified (4) Generalized weakness SNOMED Code(s): 75049829 ICD Code: R53.1 - WEAKNESS Status: Acute Current Visit: Yes (5) Hypomagnesemia SNOMED Code(s): 118738902 ICD Code: E83.42 - HYPOMAGNESEMIA Status: Acute Current Visit: Yes (6) Nausea & vomiting SNOMED Code(s): 81860471 ICD Code: R11.2 - NAUSEA WITH VOMITING, UNSPECIFIED Status: Acute Current Visit: Yes Qualifiers: Vomiting type: unspecified Vomiting Intractability: non-intractable Qualified Code(s): R11.2 - Nausea with vomiting, unspecified Problem List Initiated/Reviewed/Updated: Yes Orders Last 24hrs: Active Orders 24 hr Category Date Time Status Patient Status [ADT] Routine ADT 07/14/18 00:08 Active Antiembolic Devices [RC] PER UNIT ROUTINE Care 07/14/18 10:54 Active Bedrest [RC] ASDIRECTED Care 07/14/18 00:48 Active Blood Glucose Check, Bedside [RC] ONETIME Care 07/14/18 07:00 Active Blood Glucose Check, Bedside [RC] QIDACANDBED Care 07/14/18 10:15 Active Oxygen Therapy [RC] ASDIRECTED Care 07/14/18 00:52 Active Peripheral IV Care [RC] Q2HR Care 07/13/18 21:57 Active Consult to Speech Language Pathology [REHAB CONSULTANT Evaluation Cons 07/14/18 10:49 Active and Treatment] [CONS] Routine PT Evaluation and Treatment [CONS] Routine Cons 07/14/18 10:49 Active Clear Liquid Diet [DIET] Diet 07/14/18 Breakfast Active CULTURE STOOL + SHIGATOX [RM] Routine Lab 07/14/18 08:20 Received FLUoxetine [PROzac] Med 07/14/18 09:00 Active 20 mg PO DAILY Insulin Lispro [HumaLOG] Med 07/14/18 11:00 Active See Protocol SUBCUT QIDACANDBED Losartan [Cozaar] Med 07/14/18 09:00 Active 50 mg PO DAILY NS + KCl 20mEq/L [Normal Saline with 20 mEq KCl] 1,000 Med 07/13/18 23:45 Active ml IV ASDIRECTED Ondansetron [Zofran] Med 07/14/18 00:51 Active 4 mg IVPUSH Q6H PRN Sodium Chloride 0.9% [Saline Flush] Med 07/13/18 21:56 Active 10 ml FLUSH ASDIRECTED PRN amLODIPine [Norvasc] Med 07/14/18 09:00 Active 10 mg PO DAILY rOPINIRole [Requip] Med 07/14/18 21:00 Active 4 mg PO BEDTIME traZODone Med 07/14/18 21:00 Active 12.5 mg PO BEDTIME valACYclovir [Valtrex] Med 07/14/18 09:00 Active 1,000 mg PO BID ED Antiemetic Medication Reflex [OM.PC] Stat Oth 07/13/18 21:57 Ordered Peripheral IV Insertion Adult [OM.PC] Stat Oth 07/13/18 21:56 Ordered SCD [Sequential Compression Device] [OM.PC] Routine Oth 07/14/18 10:54 Ordered Resuscitation Status Routine Resus Stat 07/14/18 00:50 Ordered EKG 12 Lead [EK] Stat Ther 07/13/18 22:22 Ordered Medication Orders Amlodipine Besylate (Norvasc) 10 mg PO DAILY [facility] Last Admin: 07/14/18 09:28 Dose: 10 mg Fluoxetine HCl (Prozac) 20 mg PO DAILY [facility] Last Admin: 07/14/18 09:28 Dose: 20 mg Potassium Chloride/Sodium Chloride (Normal Saline With 20 Meq Kcl) 1,000 mls @ 100 mls/hr IV ASDIRECTED [facility] Last Admin: 07/14/18 09:29 Dose: 100 mls/hr Infusion: 07/14/18 09:29 Dose: 100 mls/hr Admin: 07/14/18 00:10 Dose: 100 mls/hr Insulin Human Lispro (Humalog) 0 unit SUBCUT QIDACANDBED [facility]; Protocol Last Admin: 07/14/18 12:02 Dose: Not Given Losartan Potassium (Cozaar) 50 mg PO DAILY [facility] Last Admin: 07/14/18 09:28 Dose: 50 mg Ondansetron HCl (Zofran) 4 mg IVPUSH Q6H PRN PRN Reason: Nausea/Vomiting Ropinirole HCl (Requip) 4 mg PO BEDTIME [facility] Sodium Chloride (Saline Flush) 10 ml FLUSH ASDIRECTED PRN PRN Reason: Keep Vein Open Last Admin: 07/13/18 22:19 Dose: 10 ml Trazodone HCl (Trazodone) 12.5 mg PO BEDTIME [facility] Valacyclovir HCl (Valtrex) 1,000 mg PO BID [facility] Last Admin: 07/14/18 09:28 Dose: 1,000 mg Assessment/Plan Comment:: Nausea, vomiting, and diarrhea - Patient has been better since transfer from the emergency room. - Zofran 4 nausea - Stool for evaluation Hypokalemia - Replenish potassium IV initially and when able switch to by mouth - Recheck potassium in the morning Hypomagnesemia - Replenish IV - Recheck in a.m. Weakness and fatigue - Encourage ambulation. Replenish electrolytes. - Consult PT Jocy - Restart Valtrex 1000 mg twice a day. Diabetes mellitus - Hold metformin while in the hospital. - Cover with sliding scale insulin until she is taking well by mouth then start back on home regimen Hypertension - Continue home meds
[2018-07-14] MEDS: DICLOFENAC SODIUM 1% TOP SCH (20:48)
[2018-07-14] MEDS: Potassium Chloride 10% 20 MEQ/15 ML Soln 15 ML UD Cup PO SCH (20:48)
[2018-07-14] MEDS: rOPINIRole 1 MG Tab PO SCH (20:51)
[2018-07-14] MEDS: traZODone 50 MG Tab PO SCH (20:53)
[2018-07-15] MEDS: Insulin Lispro 100 Units/ML 3 ML Vial SUBCUT SCH ×4 (07:31→22:51)
[2018-07-15] MEDS ORDERED: Sodium Chloride 0.9% 10 ML Syringe FLUSH PRN (08:24)
[2018-07-15] MEDS ORDERED: Magnesium Sulfate/Water 2 GM in Premix Bag 1 BAG IV ONE (08:30)
--- NOTE | 2018-07-15 08:36 | PCM.PN ---
- General Info Date of Service: 07/15/18 Admission Dx/Problem (Free Text): Admission Diagnosis/Problem Admission Diagnosis/Problem Hypokalemia Subjective Update: Patient is improving overnight. She did have some "owning" last night. She was a little more combative and refused her potassium supplementation orally. Unfortunately, she did not receive her IV potassium phosphate because pharmacy was not available to mix it yesterday afternoon and evening. She is stronger but she continues to be a 2 person assist. She had several loose stools yesterday and has not had a bowel movement yet this morning. Patient is complaining of left-sided facial pain from her shingles. She complains of left- sided facial pain on the inside of her mouth in the same area. First Valtrex was yesterday morning which is approximately 96 hours after the onset of rash. Functional Status: Reports: Tolerating Diet - Review of Systems General: Reports: Weakness HEENT: Denies: Sore Throat Pulmonary: Reports: No Symptoms. Denies: Shortness of Breath, Cough Cardiovascular: Reports: No Symptoms. Denies: Chest Pain, Orthopnea Gastrointestinal: Reports: Diarrhea Genitourinary: Denies: Dysuria, Frequency Neurological: Reports: Confusion Psychiatric: Reports: Confusion - Patient Data Vitals - Most Recent: Last Vital Signs Temp 98.2 F 07/15/18 03:08 Pulse 88 07/15/18 03:08 Resp 18 07/15/18 03:08 BP 149/83 H 07/15/18 03:08 Pulse Ox 97 07/15/18 03:08 Weight - Most Recent: 161 lb 12.8 oz I&O - Last 24 Hours: Intake & Output 07/14/18 07/15/18 07/15/18 22:59 06:59 14:59 Intake Total 2320 1315 Output Total 650 Balance 2320 665 Lab Results Last 24 Hours: Laboratory Results - last 24 hr 07/14/18 07/14/18 07/14/18 Range/Units 06:28 08:20 11:06 WBC (3.98-10.04) K/mm3 RBC (3.98-5.22) M/mm3 Hgb (11.2-15.7) gm/L Hct (34.1-44.9) % MCV (79.4-94.8) fl MCH (25.6-32.2) pg MCHC (32.2-35.5) g/dl RDW Std Deviation (36.4-46.3) fL Plt Count (182-369) K/mm3 MPV (9.4-12.3) fl Neut % (Auto) (34.0-71.1) % Lymph % (Auto) (19.3-51.7) % [place] % (Auto) (4.7-12.5) % Eos % (Auto) (0.7-5.8) Baso % (Auto) (0.1-1.2) % Neut # (Auto) (1.56-6.13) K/mm3 Lymph # (Auto) (1.18-3.74) K/mm3 [place] # (Auto) (0.24-0.36) K/mm3 Eos # (Auto) (0.04-0.36) K/mm3 Baso # (Auto) (0.01-0.08) K/mm3 Manual Slide Review Sodium (136-145) mEq/L Potassium (3.5-5.1) mEq/L Chloride (98-107) mEq/L Carbon Dioxide (21-32) mEq/L Anion Gap (5-15) BUN (7-18) mg/dL Creatinine (0.55-1.02) mg/dL Est Cr Clr Drug Dosing mL/min Estimated GFR (MDRD) (>60) mL/min BUN/Creatinine Ratio (14-18) Glucose (83-115) mg/dL POC Glucose 79 L 126 H (83-110) mg/dL Calcium (8.5-10.1) mg/dL Phosphorus (2.6-4.7) mg/dL Magnesium (1.8-2.4) mg/dl Total Bilirubin (0.2-1.0) mg/dL AST (15-37) U/L ALT (14-59) U/L Alkaline Phosphatase (46-116) U/L Total Protein (6.4-8.2) g/dl Albumin (3.4-5.0) g/dl Globulin gm/dL Albumin/Globulin Ratio (1-2) C.difficile 027-NAP1-B1 Presumptive negative C. difficile Tox (PCR) Negative 07/14/18 07/14/18 07/14/18 Range/Units 13:05 17:18 20:46 WBC (3.98-10.04) K/mm3 RBC (3.98-5.22) M/mm3 Hgb (11.2-15.7) gm/L Hct (34.1-44.9) % MCV (79.4-94.8) fl MCH (25.6-32.2) pg MCHC (32.2-35.5) g/dl RDW Std Deviation (36.4-46.3) fL Plt Count (182-369) K/mm3 MPV (9.4-12.3) fl Neut % (Auto) (34.0-71.1) % Lymph % (Auto) (19.3-51.7) % [place] % (Auto) (4.7-12.5) % Eos % (Auto) (0.7-5.8) Baso % (Auto) (0.1-1.2) % Neut # (Auto) (1.56-6.13) K/mm3 Lymph # (Auto) (1.18-3.74) K/mm3 [place] # (Auto) (0.24-0.36) K/mm3 Eos # (Auto) (0.04-0.36) K/mm3 Baso # (Auto) (0.01-0.08) K/mm3 Manual Slide Review Sodium 138 (136-145) mEq/L Potassium 3.1 L (3.5-5.1) mEq/L Chloride 101 (98-107) mEq/L Carbon Dioxide 29 (21-32) mEq/L Anion Gap 11.1 (5-15) BUN 10 (7-18) mg/dL Creatinine 0.8 (0.55-1.02) mg/dL Est Cr Clr Drug Dosing 38.11 mL/min Estimated GFR (MDRD) > 60 (>60) mL/min BUN/Creatinine Ratio 12.5 L (14-18) Glucose 212 H (83-115) mg/dL POC Glucose 192 H 135 H (83-110) mg/dL Calcium 8.3 L (8.5-10.1) mg/dL Phosphorus 2.0 L (2.6-4.7) mg/dL Magnesium 1.7 L (1.8-2.4) mg/dl Total Bilirubin (0.2-1.0) mg/dL AST (15-37) U/L ALT (14-59) U/L Alkaline Phosphatase (46-116) U/L Total Protein (6.4-8.2) g/dl Albumin (3.4-5.0) g/dl Globulin gm/dL Albumin/Globulin Ratio (1-2) C.difficile 027-NAP1-B1 C. difficile Tox (PCR) 07/15/18 07/15/18 07/15/18 Range/Units 06:32 06:35 06:35 WBC 11.24 H (3.98-10.04) K/mm3 RBC 4.53 (3.98-5.22) M/mm3 Hgb 13.3 (11.2-15.7) gm/L Hct 40.0 (34.1-44.9) % MCV 88.3 (79.4-94.8) fl MCH 29.4 (25.6-32.2) pg MCHC 33.3 (32.2-35.5) g/dl RDW Std Deviation 43.0 (36.4-46.3) fL Plt Count 274 (182-369) K/mm3 MPV 10.1 (9.4-12.3) fl Neut % (Auto) 66.9 (34.0-71.1) % Lymph % (Auto) 25.3 (19.3-51.7) % [place] % (Auto) 6.8 (4.7-12.5) % Eos % (Auto) 0.3 L (0.7-5.8) Baso % (Auto) 0.4 (0.1-1.2) % Neut # (Auto) 7.54 H (1.56-6.13) K/mm3 Lymph # (Auto) 2.84 (1.18-3.74) K/mm3 [place] # (Auto) 0.76 H (0.24-0.36) K/mm3 Eos # (Auto) 0.03 L (0.04-0.36) K/mm3 Baso # (Auto) 0.04 (0.01-0.08) K/mm3 Manual Slide Review Abnormal smear Sodium 142 (136-145) mEq/L Potassium 3.2 L (3.5-5.1) mEq/L Chloride 104 (98-107) mEq/L Carbon Dioxide 31 (21-32) mEq/L Anion Gap 10.2 (5-15) BUN 7 (7-18) mg/dL Creatinine 0.7 (0.55-1.02) mg/dL Est Cr Clr Drug Dosing 43.55 mL/min Estimated GFR (MDRD) > 60 (>60) mL/min BUN/Creatinine Ratio 10.0 L (14-18) Glucose 130 H (83-115) mg/dL POC Glucose 137 H (83-110) mg/dL Calcium 8.2 L (8.5-10.1) mg/dL Phosphorus 2.0 L (2.6-4.7) mg/dL Magnesium 1.8 (1.8-2.4) mg/dl Total Bilirubin 0.6 (0.2-1.0) mg/dL AST 13 L (15-37) U/L ALT 15 (14-59) U/L Alkaline Phosphatase 80 (46-116) U/L Total Protein 6.9 (6.4-8.2) g/dl Albumin 3.1 L (3.4-5.0) g/dl Globulin 3.8 gm/dL Albumin/Globulin Ratio 0.8 L (1-2) C.difficile 027-NAP1-B1 C. difficile Tox (PCR) Lorenzo Results Last 24 Hours: Microbiology 07/14/18 08:20 Stool for WBCs - Final Stool / Feces NO WBC SEEN Med Orders - Current: Current Medications Acetaminophen (Tylenol) 650 mg PO Q4H PRN PRN Reason: Pain Amlodipine Besylate (Norvasc) 10 mg PO DAILY [facility] Last Admin: 07/14/18 09:28 Dose: 10 mg Fluoxetine HCl (Prozac) 20 mg PO DAILY [facility] Last Admin: 07/14/18 09:28 Dose: 20 mg Potassium Phosphate 15 mmole/ (Sodium Chloride) 255 mls @ 85 mls/hr IV ONETIME ONE Stop: 07/16/18 11:59 Magnesium Sulfate 2 gm/ Premix 50 mls @ 25 mls/hr IV ONETIME ONE Stop: 07/15/18 10:24 Insulin Human Lispro (Humalog) 0 unit SUBCUT QIDACANDBED [facility]; Protocol Last Admin: 07/15/18 07:31 Dose: Not Given Losartan Potassium (Cozaar) 50 mg PO DAILY [facility] Last Admin: 07/14/18 09:28 Dose: 50 mg Diclofenac Sodium 1% (Gel Own Med) 1 applic TOP TID [facility] Last Admin: 07/14/18 20:48 Dose: 1 applic Ondansetron HCl (Zofran) 4 mg IVPUSH Q6H PRN PRN Reason: Nausea/Vomiting Last Admin: 07/14/18 23:20 Dose: 4 mg Potassium Chloride (Potassium Chloride Solution) 20 meq PO TID [facility] Last Admin: 07/14/18 20:48 Dose: 20 meq Ropinirole HCl (Requip) 4 mg PO BEDTIME [facility] Last Admin: 07/14/18 20:51 Dose: 4 mg Sodium Chloride (Saline Flush) 10 ml FLUSH ASDIRECTED PRN PRN Reason: Keep Vein Open Last Admin: 07/13/18 22:19 Dose: 10 ml Sodium Chloride (Saline Flush) 10 ml FLUSH ASDIRECTED PRN PRN Reason: Keep Vein Open Trazodone HCl (Trazodone) 12.5 mg PO BEDTIME [facility] Last Admin: 07/14/18 20:53 Dose: 12.5 mg Discontinued Medications Hydromorphone HCl (Dilaudid) 0.25 mg IVPUSH ONETIME ONE Stop: 07/13/18 22:32 Last Admin: 07/13/18 22:35 Dose: 0.25 mg Sodium Chloride (Normal Saline) 1,000 mls @ 1,000 mls/hr IV .BOLUS STA Stop: 07/13/18 22:55 Last Admin: 07/13/18 22:18 Dose: 1,000 mls/hr Potassium Chloride 10 meq/ (Premix) 100 mls @ 100 mls/hr IV ASDIRECTED [facility] Last Admin: 07/13/18 23:25 Dose: 100 mls/hr Magnesium Sulfate/Dextrose 1 (gm/ Premix) 100 mls @ 100 mls/hr IV ONETIME ONE Stop: 07/14/18 00:48 Last Admin: 07/14/18 01:12 Dose: Not Given Potassium Chloride/Sodium Chloride (Normal Saline With 20 Meq Kcl) 1,000 mls @ 100 mls/hr IV ASDIRECTED [facility] Last Admin: 07/14/18 20:07 Dose: 100 mls/hr Magnesium Sulfate 2 gm/ Premix 50 mls @ 25 mls/hr IV ONETIME ONE Stop: 07/14/18 02:01 Last Admin: 07/14/18 00:10 Dose: 25 mls/hr Potassium Chloride 10 meq/ (Premix) 100 mls @ 100 mls/hr IV Q1H [place] Stop: 07/14/18 13:29 Last Admin: 07/14/18 13:12 Dose: 100 mls/hr Magnesium Sulfate 2 gm/ Premix 50 mls @ 25 mls/hr IV ONETIME ONE Stop: 07/14/18 18:14 Last Admin: 07/14/18 17:19 Dose: 25 mls/hr Ondansetron HCl (Zofran) 4 mg IVPUSH ONETIME ONE Stop: 07/13/18 21:57 Last Admin: 07/13/18 22:19 Dose: 4 mg Valacyclovir HCl (Valtrex) 1,000 mg PO BID [place] Last Admin: 07/14/18 20:53 Dose: 1,000 mg - Exam General: Alert, Cooperative, No Acute Distress HEENT: Mucous Membr. Moist/[place] Neck: Supple Lungs: Clear to Auscultation, Normal Respiratory Effort Cardiovascular: Regular Rate, Regular Rhythm GI/Abdominal Exam: Normal Bowel Sounds, Soft, Non-Tender Skin: Warm, Rash (Crusted over rash on the left cheek. Small ulcer on the inside of the gum on the left side.) Psy/Mental Status: Alert - Problem List & Annotations (1) Hypokalemia SNOMED Code(s): 32598231 Code(s): E87.6 - HYPOKALEMIA Status: Acute Priority: High Current Visit : Yes (2) Abdominal pain SNOMED Code(s): 13385377 Code(s): R10.9 - UNSPECIFIED ABDOMINAL PAIN Status: Acute Current Visit: Yes Qualifiers: Abdominal location: generalized Qualified Code(s): R10.84 - Generalized abdominal pain (3) Diarrhea SNOMED Code(s): 97870606 Code(s): R19.7 - DIARRHEA, UNSPECIFIED Status: Acute Current Visit: Yes Qualifiers: Diarrhea type: unspecified type Qualified Code(s): R19.7 - Diarrhea, unspecified (4) Generalized weakness SNOMED Code(s): 38629039 Code(s): R53.1 - WEAKNESS Status: Acute Current Visit: Yes (5) Hypomagnesemia SNOMED Code(s): 921629876 Code(s): E83.42 - HYPOMAGNESEMIA Status: Acute Current Visit: Yes (6) Nausea & vomiting SNOMED Code(s): 24105613 Code(s): R11.2 - NAUSEA WITH VOMITING, UNSPECIFIED Status: Acute Current Visit: Yes Qualifiers: Vomiting type: unspecified Vomiting Intractability: non-intractable Qualified Code(s): R11.2 - Nausea with vomiting, unspecified - Problem List Review Problem List Initiated/Reviewed/Updated: Yes - My Orders Last 24 Hours: My Active Orders 07/14/18 08:20 CULTURE STOOL + SHIGATOX [RM] Routine 07/14/18 09:00 FLUoxetine [PROzac] 20 mg PO DAILY Losartan [Cozaar] 50 mg PO DAILY amLODIPine [Norvasc] 10 mg PO DAILY 07/14/18 10:49 Consult to Speech Language Pathology [PLANT CHANGER Evaluation and Treatment] [CONS] Routine PT Evaluation and Treatment [CONS] Routine 07/14/18 10:54 Antiembolic Devices [RC] , SCD [Sequential Compression Device] [OM.PC] Routine 07/14/18 21:00 Diclofenac Sodium [Diclofenac Sodium] 1 applic TOP TID Potassium Chloride [Potassium Chloride Solution] 20 meq PO TID rOPINIRole [Requip] 4 mg PO BEDTIME traZODone 12.5 mg PO BEDTIME 07/14/18 Dinner ADA Diabetic [[place] [employer] Diet] [DIET] 07/15/18 08:01 Acetaminophen [Tylenol] 650 mg PO Q4H PRN 07/15/18 08:24 Sodium Chloride 0.9% [Saline Flush] 10 ml FLUSH ASDIRECTED PRN Convert IV to Saline Lock [OM.PC] Routine 07/15/18 08:25 Magnesium Sulfate/Water [Magnesium Sulfate 2 GM in Water 50 ML] 2 gm Premix Bag 1 bag IV ONETIME 07/16/18 05:11 BASIC METABOLIC PANEL,BMP [CHEM] AM CBC WITH AUTO DIFF [HEME] AM MAGNESIUM [CHEM] AM PHOSPHORUS [CHEM] AM 07/16/18 09:00 Potassium Phosphates 15 mmole Sodium Chloride 0.9% [Normal Saline] 250 ml IV ONETIME - Plan Plan:: Nausea, vomiting, and diarrhea - Patient has been better overnight - Zofran 4 nausea - Stool negative for C. difficile - Diarrhea possibly due to metformin. Continue to hold metformin. Hypokalemia - Replenish potassium and phosphate by IV and add by mouth potassium - Recheck potassium in the morning Hypophosphatemia - As above Hypomagnesemia - Replenish IV - Recheck in a.m. Weakness and fatigue - Encourage ambulation. Replenish electrolytes. - Physical therapy consultation. - Patient continues to be a two-person transfer Shingles - Stop Valtrex 1000 mg twice a day. Patient would get no benefit at this time and only suffer from symptoms. Concern for increasing confusion and fatigue with high-dose Valtrex in the elderly. Diabetes mellitus - Hold metformin while in the hospital to see if this improves her diarrhea - Cover with sliding scale insulin until she is taking well by mouth then start back on home regimen of long-acting insulin Hypertension - Continue home meds Dementia - Patient is demonstrating some dementia and sundowning syndrome. I discussed this with nursing and they stated that when she was here in March she had some significant sundowning syndrome symptoms. We will continue to monitor and try to get her back to her apartment as soon as possible.
[2018-07-15] MEDS: Potassium Chloride 10% 20 MEQ/15 ML Soln 15 ML UD Cup PO SCH ×3 (08:49→21:00)
[2018-07-15] MEDS: FLUoxetine 20 MG Cap PO SCH (08:49)
[2018-07-15] MEDS: Losartan 25 MG Tab PO SCH (08:49)
[2018-07-15] MEDS: DICLOFENAC SODIUM 1% TOP SCH ×3 (08:50→21:00)
[2018-07-15] MEDS: amLODIPine 10 MG Tab PO SCH (08:50)
[2018-07-15] MEDS: Acetaminophen 325 MG Tab PO PRN ×2 (08:50→18:10)
[2018-07-15] MEDS ORDERED: Potassium Phosphates 15 MMOLE in Sodium Chloride 0.9% 250 ML IV ONE (09:00)
[2018-07-15] MEDS ORDERED: Enoxaparin 40 MG/0.4 ML Syringe SUBCUT SCH (17:30)
[2018-07-15] MEDS: Insulin Glarg,Human.Rec.Analog 100 UNIT/ML ML SUBCUT SCH (18:00)
[2018-07-15] MEDS ORDERED: Enoxaparin 40 MG/0.4 ML Syringe SUBCUT ONE (18:00)
[2018-07-15] MEDS: traZODone 50 MG Tab PO SCH (21:00)
[2018-07-15] MEDS: rOPINIRole 1 MG Tab PO SCH (21:00)
[2018-07-16] MEDS: Insulin Lispro 100 Units/ML 3 ML Vial SUBCUT SCH ×4 (07:52→22:40)
[2018-07-16] MEDS ORDERED: Potassium Phosphates 15 MMOLE in Sodium Chloride 0.9% 250 ML IV ONE (08:30)
[2018-07-16] MEDS: Potassium Chloride 10% 20 MEQ/15 ML Soln 15 ML UD Cup PO SCH ×4 (08:42→20:19)
[2018-07-16] MEDS: Losartan 25 MG Tab PO SCH (08:43)
[2018-07-16] MEDS: FLUoxetine 20 MG Cap PO SCH (08:43)
[2018-07-16] MEDS: amLODIPine 10 MG Tab PO SCH (08:43)
[2018-07-16] MEDS: DICLOFENAC SODIUM 1% TOP SCH ×3 (08:43→22:38)
[2018-07-16] MEDS: Acetaminophen 325 MG Tab PO PRN ×3 (08:57→19:39)
[2018-07-16] MEDS: Potassium Chloride 10 MEQ in Premix Bag 1 BAG IV SCH ×4 (11:12→15:01)
--- NOTE | 2018-07-16 11:14 | PCM.PN ---
- General Info Date of Service: 07/16/18 Admission Dx/Problem (Free Text): History was mainly derived from the emergency room physician and nursing because patient is a poor historian. Patient was sent to the emergency room via EMS after developing nausea, vomiting, and diarrhea. Patient reportedly had this for a couple of days and developed a rash on the left side of her face. She was seen by her primary care provider Dr. Jose Manuel shabazz who started her on valacyclovir. She was also found to have a low potassium at her PCPs office and low magnesium in our emergency room. Patient complains to me about generalized weakness and fatigue. Report from nursing states that her fpc called and is concerned about her gradual worsening of strength over the last couple of weeks. She does have generalized abdominal pain, no dysuria, and had a UA apparently a couple of days ago which was normal. She does use oxygen occasionally at home and yesterday her oxygen saturations were as low as 87%. Subjective Update: July 16, 2018 Patient continues to get stronger but at night she does have difficulty with "sundowning". She again refused her potassium supplementation last night. Patient's diarrhea has resolved and she has not had a bowel movement in the last 24 hours. Patient had potassium and phosphate supplementation yesterday. She is eating well, but continues to be a 2 person assist. This is going to make it difficult for her to return back to assisted living and will likely need either retirement facility or long-term care. July 15, 2018 Patient is improving overnight. She did have some "sundowning" last night. She was a little more combative and refused her potassium supplementation orally. Unfortunately, she did not receive her IV potassium phosphate because pharmacy was not available to mix it yesterday afternoon and evening. She is stronger but she continues to be a 2 person assist. She had several loose stools yesterday and has not had a bowel movement yet this morning. Patient is complaining of left-sided facial pain from her shingles. She complains of left- sided facial pain on the inside of her mouth in the same area. First Valtrex was yesterday morning which is approximately 96 hours after the onset of rash. - Review of Systems General: Reports: Weakness HEENT: Reports: No Symptoms Pulmonary: Reports: No Symptoms Gastrointestinal: Reports: No Symptoms. Denies: Diarrhea Neurological: Reports: Confusion Psychiatric: Reports: Confusion - Patient Data Vitals - Most Recent: Last Vital Signs Temp 98.4 F 07/16/18 05:33 Pulse 72 07/16/18 05:39 Resp 16 07/16/18 05:33 BP 150/80 H 07/16/18 08:43 Pulse Ox 90 L 07/16/18 05:39 Weight - Most Recent: 155 lb 9.6 oz I&O - Last 24 Hours: Intake & Output 07/15/18 07/16/18 07/16/18 21:59 06:59 14:59 Intake Total Output Total Balance Lab Results Last 24 Hours: Laboratory Results - last 24 hr 07/15/18 07/15/18 07/15/18 Range/Units 11:35 16:36 20:30 WBC (3.98-10.04) K/mm3 RBC (3.98-5.22) M/mm3 Hgb (11.2-15.7) gm/L Hct (34.1-44.9) % MCV (79.4-94.8) fl MCH (25.6-32.2) pg MCHC (32.2-35.5) g/dl RDW Std Deviation (36.4-46.3) fL Plt Count (182-369) K/mm3 MPV (9.4-12.3) fl Neut % (Auto) (34.0-71.1) % Lymph % (Auto) (19.3-51.7) % [place] % (Auto) (4.7-12.5) % Eos % (Auto) (0.7-5.8) Baso % (Auto) (0.1-1.2) % Neut # (Auto) (1.56-6.13) K/mm3 Lymph # (Auto) (1.18-3.74) K/mm3 [place] # (Auto) (0.24-0.36) K/mm3 Eos # (Auto) (0.04-0.36) K/mm3 Baso # (Auto) (0.01-0.08) K/mm3 Sodium (136-145) mEq/L Potassium (3.5-5.1) mEq/L Chloride (98-107) mEq/L Carbon Dioxide (21-32) mEq/L Anion Gap (5-15) BUN (7-18) mg/dL Creatinine (0.55-1.02) mg/dL Est Cr Clr Drug Dosing mL/min Estimated GFR (MDRD) (>60) mL/min BUN/Creatinine Ratio (14-18) Glucose (83-115) mg/dL POC Glucose 395 H 184 H 234 H (83-110) mg/dL Calcium (8.5-10.1) mg/dL Phosphorus (2.6-4.7) mg/dL Magnesium (1.8-2.4) mg/dl 07/16/18 07/16/18 07/16/18 Range/Units 05:10 06:12 06:12 WBC 9.31 (3.98-10.04) K/mm3 RBC 4.88 (3.98-5.22) M/mm3 Hgb 14.1 (11.2-15.7) gm/L Hct 42.8 (34.1-44.9) % MCV 87.7 (79.4-94.8) fl MCH 28.9 (25.6-32.2) pg MCHC 32.9 (32.2-35.5) g/dl RDW Std Deviation 43.2 (36.4-46.3) fL Plt Count 259 (182-369) K/mm3 MPV 10.1 (9.4-12.3) fl Neut % (Auto) 58.7 (34.0-71.1) % Lymph % (Auto) 32.2 (19.3-51.7) % [place] % (Auto) 7.8 (4.7-12.5) % Eos % (Auto) 0.6 L (0.7-5.8) Baso % (Auto) 0.4 (0.1-1.2) % Neut # (Auto) 5.45 (1.56-6.13) K/mm3 Lymph # (Auto) 3.00 (1.18-3.74) K/mm3 [place] # (Auto) 0.73 H (0.24-0.36) K/mm3 Eos # (Auto) 0.06 (0.04-0.36) K/mm3 Baso # (Auto) 0.04 (0.01-0.08) K/mm3 Sodium 143 (136-145) mEq/L Potassium 3.1 L (3.5-5.1) mEq/L Chloride 104 (98-107) mEq/L Carbon Dioxide 30 (21-32) mEq/L Anion Gap 12.1 (5-15) BUN 7 (7-18) mg/dL Creatinine 0.6 (0.55-1.02) mg/dL Est Cr Clr Drug Dosing 50.81 mL/min Estimated GFR (MDRD) > 60 (>60) mL/min BUN/Creatinine Ratio 11.7 L (14-18) Glucose 84 (83-115) mg/dL POC Glucose 88 (83-110) mg/dL Calcium 8.9 (8.5-10.1) mg/dL Phosphorus 2.4 L (2.6-4.7) mg/dL Magnesium 2.1 (1.8-2.4) mg/dl 07/16/18 Range/Units 06:55 WBC (3.98-10.04) K/mm3 RBC (3.98-5.22) M/mm3 Hgb (11.2-15.7) gm/L Hct (34.1-44.9) % MCV (79.4-94.8) fl MCH (25.6-32.2) pg MCHC (32.2-35.5) g/dl RDW Std Deviation (36.4-46.3) fL Plt Count (182-369) K/mm3 MPV (9.4-12.3) fl Neut % (Auto) (34.0-71.1) % Lymph % (Auto) (19.3-51.7) % [place] % (Auto) (4.7-12.5) % Eos % (Auto) (0.7-5.8) Baso % (Auto) (0.1-1.2) % Neut # (Auto) (1.56-6.13) K/mm3 Lymph # (Auto) (1.18-3.74) K/mm3 [place] # (Auto) (0.24-0.36) K/mm3 Eos # (Auto) (0.04-0.36) K/mm3 Baso # (Auto) (0.01-0.08) K/mm3 Sodium (136-145) mEq/L Potassium (3.5-5.1) mEq/L Chloride (98-107) mEq/L Carbon Dioxide (21-32) mEq/L Anion Gap (5-15) BUN (7-18) mg/dL Creatinine (0.55-1.02) mg/dL Est Cr Clr Drug Dosing mL/min Estimated GFR (MDRD) (>60) mL/min BUN/Creatinine Ratio (14-18) Glucose (83-115) mg/dL POC Glucose 131 H (83-110) mg/dL Calcium (8.5-10.1) mg/dL Phosphorus (2.6-4.7) mg/dL Magnesium (1.8-2.4) mg/dl Lorenzo Results Last 24 Hours: Microbiology 07/14/18 08:20 Stool Culture - Preliminary Stool / Feces Shiga Toxin I - Final NEGATIVE FOR SHIGA TOXIN 1 Shiga Toxin II - Final NEGATIVE FOR SHIGA TOXIN 2 Med Orders - Current: Current Medications Acetaminophen (Tylenol) 650 mg PO Q4H PRN PRN Reason: Pain Last Admin: 07/16/18 08:57 Dose: 650 mg Amlodipine Besylate (Norvasc) 10 mg PO DAILY [facility] Last Admin: 07/16/18 08:43 Dose: 10 mg Enoxaparin Sodium (Lovenox) 40 mg SUBCUT Q24H [facility] Fluoxetine HCl (Prozac) 20 mg PO DAILY [facility] Last Admin: 07/16/18 08:43 Dose: 20 mg Potassium Phosphate 15 mmole/ (Sodium Chloride) 255 mls @ 42.5 mls/hr IV ONETIME ONE Stop: 07/16/18 14:29 Last Admin: 07/16/18 08:43 Dose: 42.5 mls/hr Potassium Chloride 10 meq/ (Premix) 100 mls @ 100 mls/hr IV Q1H [facility] Stop: 07/16/18 13:29 Last Admin: 07/16/18 11:12 Dose: 100 mls/hr Insulin Glargine (Lantus) 30 unit SUBCUT DAILY@1800 [facility] Last Admin: 07/15/18 18:00 Dose: 30 unit Insulin Human Lispro (Humalog) 0 unit SUBCUT QIDACANDBED [facility]; Protocol Last Admin: 07/16/18 07:52 Dose: Not Given Losartan Potassium (Cozaar) 50 mg PO DAILY [facility] Last Admin: 07/16/18 08:43 Dose: 50 mg Diclofenac Sodium 1% (Gel Own Med) 1 applic TOP TID [facility] Last Admin: 07/16/18 08:43 Dose: 1 applic Ondansetron HCl (Zofran) 4 mg IVPUSH Q6H PRN PRN Reason: Nausea/Vomiting Last Admin: 07/14/18 23:20 Dose: 4 mg Potassium Chloride (Potassium Chloride Solution) 20 meq PO TID [facility] Last Admin: 07/16/18 08:42 Dose: 20 meq Ropinirole HCl (Requip) 4 mg PO BEDTIME [facility] Last Admin: 07/15/18 21:00 Dose: Not Given Sodium Chloride (Saline Flush) 10 ml FLUSH ASDIRECTED PRN PRN Reason: Keep Vein Open Trazodone HCl (Trazodone) 12.5 mg PO BEDTIME [facility] Last Admin: 07/15/18 21:00 Dose: Not Given Discontinued Medications Enoxaparin Sodium (Lovenox) 40 mg SUBCUT Q12H [facility] Last Admin: 07/15/18 19:03 Dose: Not Given Enoxaparin Sodium (Lovenox) 40 mg SUBCUT ONETIME ONE Stop: 07/15/18 18:01 Last Admin: 07/15/18 18:10 Dose: 40 mg Hydromorphone HCl (Dilaudid) 0.25 mg IVPUSH ONETIME ONE Stop: 07/13/18 22:32 Last Admin: 07/13/18 22:35 Dose: 0.25 mg Sodium Chloride (Normal Saline) 1,000 mls @ 1,000 mls/hr IV .BOLUS STA Stop: 07/13/18 22:55 Last Admin: 07/13/18 22:18 Dose: 1,000 mls/hr Potassium Chloride 10 meq/ (Premix) 100 mls @ 100 mls/hr IV ASDIRECTED [facility] Last Admin: 07/13/18 23:25 Dose: 100 mls/hr Magnesium Sulfate/Dextrose 1 (gm/ Premix) 100 mls @ 100 mls/hr IV ONETIME ONE Stop: 07/14/18 00:48 Last Admin: 07/14/18 01:12 Dose: Not Given Potassium Chloride/Sodium Chloride (Normal Saline With 20 Meq Kcl) 1,000 mls @ 100 mls/hr IV ASDIRECTED [facility] Last Admin: 07/14/18 20:07 Dose: 100 mls/hr Magnesium Sulfate 2 gm/ Premix 50 mls @ 25 mls/hr IV ONETIME ONE Stop: 07/14/18 02:01 Last Admin: 07/14/18 00:10 Dose: 25 mls/hr Potassium Chloride 10 meq/ (Premix) 100 mls @ 100 mls/hr IV Q1H [facility] Stop: 07/14/18 13:29 Last Admin: 07/14/18 13:12 Dose: 100 mls/hr Potassium Phosphate 15 mmole/ (Sodium Chloride) 255 mls @ 85 mls/hr IV ONETIME ONE Stop: 07/15/18 11:59 Last Admin: 07/15/18 09:55 Dose: 85 mls/hr Magnesium Sulfate 2 gm/ Premix 50 mls @ 25 mls/hr IV ONETIME ONE Stop: 07/14/18 18:14 Last Admin: 07/14/18 17:19 Dose: 25 mls/hr Magnesium Sulfate 2 gm/ Premix 50 mls @ 25 mls/hr IV ONETIME ONE Stop: 07/15/18 10:29 Last Admin: 07/15/18 09:55 Dose: 25 mls/hr Insulin Human Lispro (Humalog) 0 unit SUBCUT QIDACANDBED [facility]; Protocol Last Admin: 07/15/18 12:01 Dose: 5 units Ondansetron HCl (Zofran) 4 mg IVPUSH ONETIME ONE Stop: 07/13/18 21:57 Last Admin: 07/13/18 22:19 Dose: 4 mg Sodium Chloride (Saline Flush) 10 ml FLUSH ASDIRECTED PRN PRN Reason: Keep Vein Open Last Admin: 07/13/18 22:19 Dose: 10 ml Valacyclovir HCl (Valtrex) 1,000 mg PO BID [facility] Last Admin: 07/14/18 20:53 Dose: 1,000 mg - Exam General: Cooperative HEENT: Mucous Membr. Moist/[place] Neck: Supple Lungs: Clear to Auscultation, Normal Respiratory Effort Cardiovascular: Regular Rate, Regular Rhythm GI/Abdominal Exam: Normal Bowel Sounds, Soft, Non-Tender, No Distention Extremities: Normal Inspection, Non-Tender, No Pedal Edema. No: Pedal Edema Skin: Warm, Dry - Problem List & Annotations (1) Hypokalemia SNOMED Code(s): 70657261 Code(s): E87.6 - HYPOKALEMIA Status: Acute Priority: High Current Visit : Yes (2) Abdominal pain SNOMED Code(s): 42804559 Code(s): R10.9 - UNSPECIFIED ABDOMINAL PAIN Status: Acute Current Visit: Yes Qualifiers: Abdominal location: generalized Qualified Code(s): R10.84 - Generalized abdominal pain (3) Diarrhea SNOMED Code(s): 07626002 Code(s): R19.7 - DIARRHEA, UNSPECIFIED Status: Acute Current Visit: Yes Qualifiers: Diarrhea type: unspecified type Qualified Code(s): R19.7 - Diarrhea, unspecified (4) Generalized weakness SNOMED Code(s): 87525065 Code(s): R53.1 - WEAKNESS Status: Acute Current Visit: Yes (5) Hypomagnesemia SNOMED Code(s): 993302965 Code(s): E83.42 - HYPOMAGNESEMIA Status: Acute Current Visit: Yes (6) Nausea & vomiting SNOMED Code(s): 30689973 Code(s): R11.2 - NAUSEA WITH VOMITING, UNSPECIFIED Status: Acute Current Visit: Yes Qualifiers: Vomiting type: unspecified Vomiting Intractability: non-intractable Qualified Code(s): R11.2 - Nausea with vomiting, unspecified - Problem List Review Problem List Initiated/Reviewed/Updated: Yes - My Orders Last 24 Hours: My Active Orders 07/15/18 16:45 Insulin Glarg,Human.Rec.Analog [LantUS] 30 unit SUBCUT DAILY@1800 07/15/18 17:00 Insulin Lispro [HumaLOG] See Protocol SUBCUT QIDACANDBED 07/16/18 08:30 Potassium Phosphates 15 mmole Sodium Chloride 0.9% [Normal Saline] 250 ml IV ONETIME 07/16/18 09:30 Potassium Chloride [KCl 10 MEQ in Water 100 ML] 10 meq Premix Bag 1 bag IV Q1H 07/16/18 18:00 Enoxaparin [Lovenox] 40 mg SUBCUT Q24H 07/17/18 05:11 CBC WITH AUTO DIFF [HEME] AM CMP [COMPREHENSIVE METABOLIC PN,CMP] [CHEM] AM MAGNESIUM [CHEM] AM PHOSPHORUS [CHEM] AM - Plan Plan:: Nausea, vomiting, and diarrhea - Resolved - Zofran 4 nausea - Stool negative for C. difficile - Diarrhea likely due to metformin. Continue to hold metformin. Hypokalemia - Unfortunately, her potassium went backwards a bit from 3.2-3.1. - Replenish potassium and phosphate by IV and add by mouth potassium - Recheck potassium in the morning Hypophosphatemia - As above Hypomagnesemia - Replenish IV - Recheck in a.m. Weakness and fatigue - Encourage ambulation. Replenish electrolytes. - Physical therapy consultation. - Patient continues to be a two-person transfer Shingles - Patient denied any pain to me today. - Rash is evolving appropriately Diabetes mellitus - Hold metformin while in the hospital to see if this improves her diarrhea - Patient did have some elevated blood sugars yesterday so I restarted her Lantus 30 units a day. - Cover with sliding scale insulin. Hypertension - Continue home meds Dementia - Patient is demonstrating some dementia and sundowning syndrome. I discussed this with nursing and they stated that when she was here in March she had some significant sundowning syndrome symptoms. We will continue to monitor and try to get her back to her apartment as soon as possible. VTE prophylaxis with Lovenox Discharge planning: Patient will unlikely be able to return to [facility] assisted living. Case management will be consult is in the morning.
[2018-07-16] MEDS ORDERED: Sodium Chloride 0.9% 1,000 ML IV SCH (11:30)
[2018-07-16] MEDS ORDERED: Sodium Chloride 0.9% 1,000 ML ONE (11:34)
[2018-07-16] MEDS: Insulin Glarg,Human.Rec.Analog 100 UNIT/ML ML SUBCUT SCH (17:05)
[2018-07-16] MEDS ORDERED: Enoxaparin 40 MG/0.4 ML Syringe SUBCUT SCH (18:00)
[2018-07-16] MEDS: rOPINIRole 1 MG Tab PO SCH ×2 (19:37→20:20)
[2018-07-16] MEDS: traZODone 50 MG Tab PO SCH (22:38)
[2018-07-17] MEDS: Acetaminophen 325 MG Tab PO PRN ×3 (02:03→12:06)
[2018-07-17] MEDS: Insulin Lispro 100 Units/ML 3 ML Vial SUBCUT SCH ×2 (07:27→12:02)
[2018-07-17] MEDS: FLUoxetine 20 MG Cap PO SCH (08:15)
[2018-07-17] MEDS: Potassium Chloride 10% 20 MEQ/15 ML Soln 15 ML UD Cup PO SCH ×2 (08:15→15:08)
[2018-07-17] MEDS: amLODIPine 10 MG Tab PO SCH (08:15)
[2018-07-17] MEDS: Losartan 25 MG Tab PO SCH (08:15)
[2018-07-17 08:19] VITALS: BP 146/79
[2018-07-17] MEDS: DICLOFENAC SODIUM 1% TOP SCH ×2 (08:19→15:08)
--- NOTE | 2018-07-17 09:58 | PCM.PN ---
- General Info Date of Service: 07/17/18 Admission Dx/Problem (Free Text): History was mainly derived from the emergency room physician and nursing because patient is a poor historian. Patient was sent to the emergency room via EMS after developing nausea, vomiting, and diarrhea. Patient reportedly had this for a couple of days and developed a rash on the left side of her face. She was seen by her primary care provider Dr. Jose Manuel shabazz who started her on valacyclovir. She was also found to have a low potassium at her PCPs office and low magnesium in our emergency room. Patient complains to me about generalized weakness and fatigue. Report from nursing states that her jail called and is concerned about her gradual worsening of strength over the last couple of weeks. She does have generalized abdominal pain, no dysuria, and had a UA apparently a couple of days ago which was normal. She does use oxygen occasionally at home and yesterday her oxygen saturations were as low as 87%. - Patient Data Vitals - Most Recent: Last Vital Signs Temp 98.1 F 07/17/18 05:26 Pulse 95 07/17/18 05:26 Resp 18 07/17/18 05:26 BP 146/79 H 07/17/18 08:15 Pulse Ox 95 07/17/18 05:26 Weight - Most Recent: 153 lb 1.6 oz I&O - Last 24 Hours: Intake & Output 07/16/18 07/17/18 07/17/18 22:59 06:59 14:59 Intake Total 2110 400 Output Total 300 100 Balance 1810 300 Lab Results Last 24 Hours: Laboratory Results - last 24 hr 07/16/18 07/16/18 07/16/18 Range/Units 11:15 17:04 22:25 WBC (3.98-10.04) K/mm3 RBC (3.98-5.22) M/mm3 Hgb (11.2-15.7) gm/L Hct (34.1-44.9) % MCV (79.4-94.8) fl MCH (25.6-32.2) pg MCHC (32.2-35.5) g/dl RDW Std Deviation (36.4-46.3) fL Plt Count (182-369) K/mm3 MPV (9.4-12.3) fl Neut % (Auto) (34.0-71.1) % Lymph % (Auto) (19.3-51.7) % [place] % (Auto) (4.7-12.5) % Eos % (Auto) (0.7-5.8) Baso % (Auto) (0.1-1.2) % Neut # (Auto) (1.56-6.13) K/mm3 Lymph # (Auto) (1.18-3.74) K/mm3 [place] # (Auto) (0.24-0.36) K/mm3 Eos # (Auto) (0.04-0.36) K/mm3 Baso # (Auto) (0.01-0.08) K/mm3 Sodium (136-145) mEq/L Potassium (3.5-5.1) mEq/L Chloride (98-107) mEq/L Carbon Dioxide (21-32) mEq/L Anion Gap (5-15) BUN (7-18) mg/dL Creatinine (0.55-1.02) mg/dL Est Cr Clr Drug Dosing mL/min Estimated GFR (MDRD) (>60) mL/min BUN/Creatinine Ratio (14-18) Glucose (83-115) mg/dL POC Glucose 261 H 198 H 173 H (83-110) mg/dL Calcium (8.5-10.1) mg/dL Phosphorus (2.6-4.7) mg/dL Magnesium (1.8-2.4) mg/dl Total Bilirubin (0.2-1.0) mg/dL AST (15-37) U/L ALT (14-59) U/L Alkaline Phosphatase (46-116) U/L Total Protein (6.4-8.2) g/dl Albumin (3.4-5.0) g/dl Globulin gm/dL Albumin/Globulin Ratio (1-2) 07/17/18 07/17/18 07/17/18 Range/Units 05:39 05:39 05:59 WBC 12.18 H (3.98-10.04) K/mm3 RBC 5.11 (3.98-5.22) M/mm3 Hgb 14.6 (11.2-15.7) gm/L Hct 45.1 H (34.1-44.9) % MCV 88.3 (79.4-94.8) fl MCH 28.6 (25.6-32.2) pg MCHC 32.4 (32.2-35.5) g/dl RDW Std Deviation 44.0 (36.4-46.3) fL Plt Count 338 (182-369) K/mm3 MPV 10.1 (9.4-12.3) fl Neut % (Auto) 55.2 (34.0-71.1) % Lymph % (Auto) 36.1 (19.3-51.7) % [place] % (Auto) 7.1 (4.7-12.5) % Eos % (Auto) 0.9 (0.7-5.8) Baso % (Auto) 0.4 (0.1-1.2) % Neut # (Auto) 6.72 H (1.56-6.13) K/mm3 Lymph # (Auto) 4.40 H (1.18-3.74) K/mm3 [place] # (Auto) 0.86 H (0.24-0.36) K/mm3 Eos # (Auto) 0.11 (0.04-0.36) K/mm3 Baso # (Auto) 0.05 (0.01-0.08) K/mm3 Sodium 139 (136-145) mEq/L Potassium 4.0 (3.5-5.1) mEq/L Chloride 101 (98-107) mEq/L Carbon Dioxide 27 (21-32) mEq/L Anion Gap 15.0 (5-15) BUN 10 (7-18) mg/dL Creatinine 0.8 (0.55-1.02) mg/dL Est Cr Clr Drug Dosing 38.11 mL/min Estimated GFR (MDRD) > 60 (>60) mL/min BUN/Creatinine Ratio 12.5 L (14-18) Glucose 142 H (83-115) mg/dL POC Glucose 147 H (83-110) mg/dL Calcium 9.7 (8.5-10.1) mg/dL Phosphorus 2.6 (2.6-4.7) mg/dL Magnesium 1.7 L (1.8-2.4) mg/dl Total Bilirubin 0.6 (0.2-1.0) mg/dL AST 14 L (15-37) U/L ALT 17 (14-59) U/L Alkaline Phosphatase 84 (46-116) U/L Total Protein 7.8 (6.4-8.2) g/dl Albumin 3.5 (3.4-5.0) g/dl Globulin 4.3 gm/dL Albumin/Globulin Ratio 0.8 L (1-2) Lorenzo Results Last 24 Hours: Microbiology 07/14/18 08:20 Stool Culture - Preliminary Stool / Feces Shiga Toxin I - Final NEGATIVE FOR SHIGA TOXIN 1 Shiga Toxin II - Final NEGATIVE FOR SHIGA TOXIN 2 Med Orders - Current: Current Medications Acetaminophen (Tylenol) 650 mg PO Q4H PRN PRN Reason: Pain Last Admin: 07/17/18 08:30 Dose: 650 mg Amlodipine Besylate (Norvasc) 10 mg PO DAILY [facility] Last Admin: 07/17/18 08:15 Dose: 10 mg Enoxaparin Sodium (Lovenox) 40 mg SUBCUT Q24H [facility] Last Admin: 07/16/18 17:07 Dose: 40 mg Fluoxetine HCl (Prozac) 20 mg PO DAILY [facility] Last Admin: 07/17/18 08:15 Dose: 20 mg Magnesium Sulfate 4 gm/ Premix 100 mls @ 25 mls/hr IV ONETIME ONE Stop: 07/17/18 09:58 Insulin Glargine (Lantus) 30 unit SUBCUT DAILY@1800 [facility] Last Admin: 07/16/18 17:05 Dose: 30 unit Insulin Human Lispro (Humalog) 0 unit SUBCUT QIDACANDBED [facility]; Protocol Last Admin: 07/17/18 07:27 Dose: Not Given Losartan Potassium (Cozaar) 50 mg PO DAILY [facility] Last Admin: 07/17/18 08:15 Dose: 50 mg Diclofenac Sodium 1% (Gel Own Med) 1 applic TOP TID [facility] Last Admin: 07/17/18 08:19 Dose: 1 applic Ondansetron HCl (Zofran) 4 mg IVPUSH Q6H PRN PRN Reason: Nausea/Vomiting Last Admin: 07/14/18 23:20 Dose: 4 mg Potassium Chloride (Potassium Chloride Solution) 20 meq PO TID [facility] Last Admin: 07/17/18 08:15 Dose: 20 meq Ropinirole HCl (Requip) 4 mg PO BEDTIME [facility] Last Admin: 07/16/18 20:20 Dose: Not Given Sodium Chloride (Saline Flush) 10 ml FLUSH ASDIRECTED PRN PRN Reason: Keep Vein Open Trazodone HCl (Trazodone) 12.5 mg PO BEDTIME [facility] Last Admin: 07/16/18 22:38 Dose: Not Given Discontinued Medications Enoxaparin Sodium (Lovenox) 40 mg SUBCUT Q12H [facility] Last Admin: 07/15/18 19:03 Dose: Not Given Enoxaparin Sodium (Lovenox) 40 mg SUBCUT ONETIME ONE Stop: 07/15/18 18:01 Last Admin: 07/15/18 18:10 Dose: 40 mg Hydromorphone HCl (Dilaudid) 0.25 mg IVPUSH ONETIME ONE Stop: 07/13/18 22:32 Last Admin: 07/13/18 22:35 Dose: 0.25 mg Sodium Chloride (Normal Saline) 1,000 mls @ 1,000 mls/hr IV .BOLUS STA Stop: 07/13/18 22:55 Last Admin: 07/13/18 22:18 Dose: 1,000 mls/hr Potassium Chloride 10 meq/ (Premix) 100 mls @ 100 mls/hr IV ASDIRECTED [facility] Last Admin: 07/13/18 23:25 Dose: 100 mls/hr Magnesium Sulfate/Dextrose 1 (gm/ Premix) 100 mls @ 100 mls/hr IV ONETIME ONE Stop: 07/14/18 00:48 Last Admin: 07/14/18 01:12 Dose: Not Given Potassium Chloride/Sodium Chloride (Normal Saline With 20 Meq Kcl) 1,000 mls @ 100 mls/hr IV ASDIRECTED [facility] Last Admin: 07/14/18 20:07 Dose: 100 mls/hr Magnesium Sulfate 2 gm/ Premix 50 mls @ 25 mls/hr IV ONETIME ONE Stop: 07/14/18 02:01 Last Admin: 07/14/18 00:10 Dose: 25 mls/hr Potassium Chloride 10 meq/ (Premix) 100 mls @ 100 mls/hr IV Q1H [facility] Stop: 07/14/18 13:29 Last Admin: 07/14/18 13:12 Dose: 100 mls/hr Potassium Phosphate 15 mmole/ (Sodium Chloride) 255 mls @ 85 mls/hr IV ONETIME ONE Stop: 07/15/18 11:59 Last Admin: 07/15/18 09:55 Dose: 85 mls/hr Magnesium Sulfate 2 gm/ Premix 50 mls @ 25 mls/hr IV ONETIME ONE Stop: 07/14/18 18:14 Last Admin: 07/14/18 17:19 Dose: 25 mls/hr Magnesium Sulfate 2 gm/ Premix 50 mls @ 25 mls/hr IV ONETIME ONE Stop: 07/15/18 10:29 Last Admin: 07/15/18 09:55 Dose: 25 mls/hr Potassium Phosphate 15 mmole/ (Sodium Chloride) 255 mls @ 42.5 mls/hr IV ONETIME ONE Stop: 07/16/18 14:29 Last Admin: 07/16/18 08:43 Dose: 42.5 mls/hr Potassium Chloride 10 meq/ (Premix) 100 mls @ 100 mls/hr IV Q1H [facility] Stop: 07/16/18 13:29 Last Admin: 07/16/18 15:01 Dose: 100 mls/hr Sodium Chloride (Normal Saline) 1,000 mls @ 100 mls/hr IV ASDIRECTED [facility] Last Admin: 07/16/18 13:32 Dose: 100 mls/hr Sodium Chloride (Normal Saline) Confirm Administered Dose 1,000 mls @ as directed .ROUTE .STK-MED ONE Stop: 07/16/18 11:35 Last Admin: 07/16/18 13:34 Dose: Not Given Insulin Human Lispro (Humalog) 0 unit SUBCUT QIDACANDBED [facility]; Protocol Last Admin: 07/15/18 12:01 Dose: 5 units Ondansetron HCl (Zofran) 4 mg IVPUSH ONETIME ONE Stop: 07/13/18 21:57 Last Admin: 07/13/18 22:19 Dose: 4 mg Sodium Chloride (Saline Flush) 10 ml FLUSH ASDIRECTED PRN PRN Reason: Keep Vein Open Last Admin: 07/13/18 22:19 Dose: 10 ml Valacyclovir HCl (Valtrex) 1,000 mg PO BID [facility] Last Admin: 07/14/18 20:53 Dose: 1,000 mg - My Orders Last 24 Hours: My Active Orders 07/17/18 09:57 Magnesium Sulfate/Water [Magnesium Sulfate 4 GM in Water 100 ML] 4 gm Premix Bag 1 bag IV ONETIME - Plan Plan:: Nausea, vomiting, and diarrhea - Resolved - Zofran 4 nausea - Stool negative for C. difficile - Diarrhea likely due to metformin. Continue to hold metformin. Hypokalemia - Unfortunately, her potassium went backwards a bit from 3.2-3.1. - Replenish potassium and phosphate by IV and add by mouth potassium - Recheck potassium in the morning Hypophosphatemia - As above Hypomagnesemia - Replenish IV - Recheck in a.m. Weakness and fatigue - Encourage ambulation. Replenish electrolytes. - Physical therapy consultation. - Patient continues to be a two-person transfer Shingles - Patient denied any pain to me today. - Rash is evolving appropriately Diabetes mellitus - Hold metformin while in the hospital to see if this improves her diarrhea - Patient did have some elevated blood sugars yesterday so I restarted her Lantus 30 units a day. - Cover with sliding scale insulin. Hypertension - Continue home meds Dementia - Patient is demonstrating some dementia and sundowning syndrome. I discussed this with nursing and they stated that when she was here in March she had some significant sundowning syndrome symptoms. We will continue to monitor and try to get her back to her apartment as soon as possible. VTE prophylaxis with Lovenox Discharge planning: Patient will unlikely be able to return to [facility] assisted living. Case management will be consult is in the morning.
[2018-07-17] MEDS ORDERED: Magnesium Sulfate/Water 4 GM in Premix Bag 1 BAG IV ONE (10:00)
--- NOTE | 2018-07-17 11:26 | PCM.DCSUM1 ---
Discharge Summary - Hospital Course HPI Initial Comments: History was mainly derived from the emergency room physician and nursing because patient is a poor historian. Patient was sent to the emergency room via EMS after developing nausea, vomiting, and diarrhea. Patient reportedly had this for a couple of days and developed a rash on the left side of her face. She was seen by her primary care provider Dr. Jose Manuel shabazz who started her on valacyclovir. She was also found to have a low potassium at her PCPs office and low magnesium in our emergency room. Patient complains to me about generalized weakness and fatigue. Report from nursing states that her halfway called and is concerned about her gradual worsening of strength over the last couple of weeks. She does have generalized abdominal pain, no dysuria, and had a UA apparently a couple of days ago which was normal. She does use oxygen occasionally at home and yesterday her oxygen saturations were as low as 87%. Diagnosis: Stroke: No - Discharge Data Discharge Date: 07/17/18 (Admit date: 07/14/18) Discharge Disposition: DC/Tfer to Other 70 Condition: Good - Discharge Diagnosis/Problem(s) (1) Herpes zoster SNOMED Code(s): 5113979 ICD Code: B02.9 - ZOSTER WITHOUT COMPLICATIONS Status: Acute Priority: High Current Visit: Yes Qualifiers: Herpes zoster complications: without complications Qualified Code(s): B02.9 - Zoster without complications (2) Diarrhea SNOMED Code(s): 39980060 ICD Code: R19.7 - DIARRHEA, UNSPECIFIED Status: Resolved Priority: High Current Visit: Yes Qualifiers: Diarrhea type: unspecified type Qualified Code(s): R19.7 - Diarrhea, unspecified (3) Generalized weakness SNOMED Code(s): 53051182 ICD Code: R53.1 - WEAKNESS Status: Acute Priority: High Current Visit: Yes (4) Hypokalemia SNOMED Code(s): 33943848 ICD Code: E87.6 - HYPOKALEMIA Status: Resolved Priority: High Current Visit: Yes (5) Hypomagnesemia SNOMED Code(s): 295118684 ICD Code: E83.42 - HYPOMAGNESEMIA Status: Acute Priority: High Current Visit: Yes (6) Nausea & vomiting SNOMED Code(s): 35534338 ICD Code: R11.2 - NAUSEA WITH VOMITING, UNSPECIFIED Status: Resolved Priority: High Current Visit: Yes Qualifiers: Vomiting type: unspecified Vomiting Intractability: non-intractable Qualified Code(s): R11.2 - Nausea with vomiting, unspecified - Patient Summary/Data Consults: Consultations 07/14/18 10:49 Consult to Speech Language Pathology [RESTAURANT FLOOR MANAGER Evaluation and Treatment] [CONS] Routine PT Evaluation and Treatment [CONS] Routine 07/16/18 11:14 Consult to Case Management/Sales Representative Health Insurance [CONS] Routine Labs Pending at D/C: None Recommended Follow-up Testing/Procedures: Follow-up with PCP within 7-10 days. -Recommend recheck BMP and magnesium at that appointment. Hospital Course: Nurys presented to our ED with nausea and vomiting. Her infectious workup including stool culture, WBC, and C. Diff was negative. Her nausea and vomiting did resolve. Her potassium and magnesium were very low with a K of 2.4 and magnesium of 1.4. This was supplemented while here. She was quite weak on arrival and originally the plan was for SNF placement however she continued to improve with PT/OT and was ultimately deemed appropriate for return back to [facility]. She was noted to have herpes zoster rash on her left cheek and was receiving valacyclovir for this. She did have some referred pain into her mouth form this as well. She should resume her home oral potassium supplementation and start taking her oral magnesium supplementation. Rx for this was sent to her pharmacy. She should follow-up with her PCP within 7-10 days of discharge. Recommend re-checking BMP and magnesium at that time. She will have outpatient PT and OT ordered at discharge. Home medications should be resumed. She was instructed to contact her PCP, a walk-in clinic, or return to the ED should symptoms return or worsen. - Patient Instructions Diet: Diabetic Diet Activity: As Tolerated Driving: Do Not Drive Notify Provider of: Fever, Increased Pain, Drainage Other/Special Instructions: -Follow-up with PCP within 7-10 days of discharge. -Recommend blood draw at follow-up to re-check potassium and magnesium. - Resume home medications as ordered, including home potassium supplementation. - Outpatient PT/OT as ordered. -Should symptoms return or worsen, contact PCP, a walk-in clinic, or return to ED. - Discharge Plan *PRESCRIPTION DRUG MONITORING PROGRAM REVIEWED*: No *COPY OF PRESCRIPTION DRUG MONITORING REPORT IN PATIENT ELE: No Prescriptions/Med Rec: Magnesium Oxide 400 mg PO DAILY 4 Days #4 tab Home Medications: Home Meds Irbesartan 150 mg PO DAILY 12/23/16 [History] Rosuvastatin [Crestor] 10 mg PO DAILY 12/23/16 [History] amLODIPine [Norvasc] 10 mg PO DAILY 12/23/16 [History] rOPINIRole [Requip] 4 mg PO BEDTIME 12/23/16 [History] traMADol [Ultram] 50 mg PO BID 12/23/16 [History] Diclofenac Sodium 1 applic TOP TID 02/01/18 [History] metFORMIN [Glucophage] 1,000 mg PO BID 02/01/18 [History] FLUoxetine HCl [Prozac] 20 mg PO DAILY #30 capsule 04/06/18 [Rx] Insulin Glarg,Human.Rec.Analog [Lantus] 30 units SQ DAILY 07/13/18 [History] Insulin Glargine,Hum.Rec.Anlog [Basaglar Kwikpen U-100] 30 units SQ DAILY [History] Mirabegron [Myrbetriq] 25 mg PO DAILY 07/13/18 [History] Potassium Chloride 40 meq PO DAILY 07/13/18 [History] Saccharomyces Boulardii [Florastor] 250 mg PO BID 07/13/18 [History] traZODone HCl [Trazodone HCl] 12.5 mg PO BEDTIME 07/13/18 [History] valACYclovir [Valtrex] 1,000 mg PO BID 07/13/18 [History] Magnesium Oxide 400 mg PO DAILY 4 Days #4 tab 07/17/18 [Rx] Oxygen Therapy Mode: Room Air Maintain SpO2% greater than: 90 Patient Handouts: Hypokalemia Referrals: Shankar Dang MD [Primary Care Provider] - - Discharge Summary/Plan Comment DC Time >30 min.: Yes (45 minutes ) - General Info Date of Service: 07/17/18 Admission Dx/Problem (Free Text: History was mainly derived from the emergency room physician and nursing because patient is a poor historian. Patient was sent to the emergency room via EMS after developing nausea, vomiting, and diarrhea. Patient reportedly had this for a couple of days and developed a rash on the left side of her face. She was seen by her primary care provider Dr. Jose Manuel shabazz who started her on valacyclovir. She was also found to have a low potassium at her PCPs office and low magnesium in our emergency room. Patient complains to me about generalized weakness and fatigue. Report from nursing states that her halfway called and is concerned about her gradual worsening of strength over the last couple of weeks. She does have generalized abdominal pain, no dysuria, and had a UA apparently a couple of days ago which was normal. She does use oxygen occasionally at home and yesterday her oxygen saturations were as low as 87%. Subjective Update: In to see Lana. She reports she feels pretty good and is up eating soup. She has no concerns or complaints. No nursing concerns. Functional Status: Reports: Pain Controlled, Tolerating Diet, Ambulating, Urinating. Denies: New Symptoms - Review of Systems General: Reports: Weakness (improving ), Fatigue (improving ). Denies: Fever, Malaise, Chills HEENT: Reports: Other (Pain on left cheek radiating into mouth 2/2 herpes zoster ). Denies: Headaches, Sore Throat Pulmonary: Reports: No Symptoms. Denies: Shortness of Breath, Cough, Sputum Cardiovascular: Reports: No Symptoms. Denies: Chest Pain, Palpitations, Dyspnea on Exertion, Edema Gastrointestinal: Reports: No Symptoms. Denies: Abdominal Pain, Constipation, Diarrhea, Nausea, Vomiting Genitourinary: Reports: No Symptoms. Denies: Pain Musculoskeletal: Reports: No Symptoms Skin: Reports: No Symptoms Neurological: Reports: Confusion Psychiatric: Reports: No Symptoms - Patient Data Vitals - Most Recent: Last Vital Signs Temp 98.1 F 07/17/18 05:26 Pulse 95 07/17/18 05:26 Resp 18 07/17/18 05:26 BP 146/79 H 07/17/18 08:15 Pulse Ox 95 07/17/18 05:26 Weight - Most Recent: 153 lb 1.6 oz I&O - Last 24 hours: Intake & Output 07/16/18 07/17/18 07/17/18 22:59 06:59 14:59 Intake Total 2110 400 Output Total 300 100 Balance 1810 300 Lab Results - Last 24 hrs: Laboratory Results - last 24 hr 07/16/18 07/16/18 07/16/18 Range/Units 11:15 17:04 22:25 WBC (3.98-10.04) K/mm3 RBC (3.98-5.22) M/mm3 Hgb (11.2-15.7) gm/L Hct (34.1-44.9) % MCV (79.4-94.8) fl MCH (25.6-32.2) pg MCHC (32.2-35.5) g/dl RDW Std Deviation (36.4-46.3) fL Plt Count (182-369) K/mm3 MPV (9.4-12.3) fl Neut % (Auto) (34.0-71.1) % Lymph % (Auto) (19.3-51.7) % [place]kins % (Auto) (4.7-12.5) % Eos % (Auto) (0.7-5.8) Baso % (Auto) (0.1-1.2) % Neut # (Auto) (1.56-6.13) K/mm3 Lymph # (Auto) (1.18-3.74) K/mm3 [place]kins # (Auto) (0.24-0.36) K/mm3 Eos # (Auto) (0.04-0.36) K/mm3 Baso # (Auto) (0.01-0.08) K/mm3 Sodium (136-145) mEq/L Potassium (3.5-5.1) mEq/L Chloride (98-107) mEq/L Carbon Dioxide (21-32) mEq/L Anion Gap (5-15) BUN (7-18) mg/dL Creatinine (0.55-1.02) mg/dL Est Cr Clr Drug Dosing mL/min Estimated GFR (MDRD) (>60) mL/min BUN/Creatinine Ratio (14-18) Glucose (83-115) mg/dL POC Glucose 261 H 198 H 173 H (83-110) mg/dL Calcium (8.5-10.1) mg/dL Phosphorus (2.6-4.7) mg/dL Magnesium (1.8-2.4) mg/dl Total Bilirubin (0.2-1.0) mg/dL AST (15-37) U/L ALT (14-59) U/L Alkaline Phosphatase (46-116) U/L Total Protein (6.4-8.2) g/dl Albumin (3.4-5.0) g/dl Globulin gm/dL Albumin/Globulin Ratio (1-2) 07/17/18 07/17/18 07/17/18 Range/Units 05:39 05:39 05:59 WBC 12.18 H (3.98-10.04) K/mm3 RBC 5.11 (3.98-5.22) M/mm3 Hgb 14.6 (11.2-15.7) gm/L Hct 45.1 H (34.1-44.9) % MCV 88.3 (79.4-94.8) fl MCH 28.6 (25.6-32.2) pg MCHC 32.4 (32.2-35.5) g/dl RDW Std Deviation 44.0 (36.4-46.3) fL Plt Count 338 (182-369) K/mm3 MPV 10.1 (9.4-12.3) fl Neut % (Auto) 55.2 (34.0-71.1) % Lymph % (Auto) 36.1 (19.3-51.7) % Tom[place]kins % (Auto) 7.1 (4.7-12.5) % Eos % (Auto) 0.9 (0.7-5.8) Baso % (Auto) 0.4 (0.1-1.2) % Neut # (Auto) 6.72 H (1.56-6.13) K/mm3 Lymph # (Auto) 4.40 H (1.18-3.74) K/mm3 [place]kins # (Auto) 0.86 H (0.24-0.36) K/mm3 Eos # (Auto) 0.11 (0.04-0.36) K/mm3 Baso # (Auto) 0.05 (0.01-0.08) K/mm3 Sodium 139 (136-145) mEq/L Potassium 4.0 (3.5-5.1) mEq/L Chloride 101 (98-107) mEq/L Carbon Dioxide 27 (21-32) mEq/L Anion Gap 15.0 (5-15) BUN 10 (7-18) mg/dL Creatinine 0.8 (0.55-1.02) mg/dL Est Cr Clr Drug Dosing 38.11 mL/min Estimated GFR (MDRD) > 60 (>60) mL/min BUN/Creatinine Ratio 12.5 L (14-18) Glucose 142 H (83-115) mg/dL POC Glucose 147 H (83-110) mg/dL Calcium 9.7 (8.5-10.1) mg/dL Phosphorus 2.6 (2.6-4.7) mg/dL Magnesium 1.7 L (1.8-2.4) mg/dl Total Bilirubin 0.6 (0.2-1.0) mg/dL AST 14 L (15-37) U/L ALT 17 (14-59) U/L Alkaline Phosphatase 84 (46-116) U/L Total Protein 7.8 (6.4-8.2) g/dl Albumin 3.5 (3.4-5.0) g/dl Globulin 4.3 gm/dL Albumin/Globulin Ratio 0.8 L (1-2) AKBAR Results - Last 24 hrs: Microbiology 07/14/18 08:20 Stool Culture - Preliminary Stool / Feces Shiga Toxin I - Final NEGATIVE FOR SHIGA TOXIN 1 Shiga Toxin II - Final NEGATIVE FOR SHIGA TOXIN 2 Med Orders - Current: Current Medications Acetaminophen (Tylenol) 650 mg PO Q4H PRN PRN Reason: Pain Last Admin: 07/17/18 08:30 Dose: 650 mg Amlodipine Besylate (Norvasc) 10 mg PO DAILY [facility] Last Admin: 07/17/18 08:15 Dose: 10 mg Enoxaparin Sodium (Lovenox) 40 mg SUBCUT Q24H [facility] Last Admin: 07/16/18 17:07 Dose: 40 mg Fluoxetine HCl (Prozac) 20 mg PO DAILY [facility] Last Admin: 07/17/18 08:15 Dose: 20 mg Magnesium Sulfate 4 gm/ Premix 100 mls @ 25 mls/hr IV ONETIME ONE Stop: 07/17/18 13:59 Last Admin: 07/17/18 10:38 Dose: 25 mls/hr Insulin Glargine (Lantus) 30 unit SUBCUT DAILY@1800 [facility] Last Admin: 07/16/18 17:05 Dose: 30 unit Insulin Human Lispro (Humalog) 0 unit SUBCUT QIDACANDBED [facility]; Protocol Last Admin: 07/17/18 07:27 Dose: Not Given Losartan Potassium (Cozaar) 50 mg PO DAILY [facility] Last Admin: 07/17/18 08:15 Dose: 50 mg Diclofenac Sodium 1% (Gel Own Med) 1 applic TOP TID [facility] Last Admin: 07/17/18 08:19 Dose: 1 applic Ondansetron HCl (Zofran) 4 mg IVPUSH Q6H PRN PRN Reason: Nausea/Vomiting Last Admin: 07/14/18 23:20 Dose: 4 mg Potassium Chloride (Potassium Chloride Solution) 20 meq PO TID [facility] Last Admin: 07/17/18 08:15 Dose: 20 meq Ropinirole HCl (Requip) 4 mg PO BEDTIME [facility] Last Admin: 07/16/18 20:20 Dose: Not Given Sodium Chloride (Saline Flush) 10 ml FLUSH ASDIRECTED PRN PRN Reason: Keep Vein Open Trazodone HCl (Trazodone) 12.5 mg PO BEDTIME [facility] Last Admin: 07/16/18 22:38 Dose: Not Given Discontinued Medications Enoxaparin Sodium (Lovenox) 40 mg SUBCUT Q12H [facility] Last Admin: 07/15/18 19:03 Dose: Not Given Enoxaparin Sodium (Lovenox) 40 mg SUBCUT ONETIME ONE Stop: 07/15/18 18:01 Last Admin: 07/15/18 18:10 Dose: 40 mg Hydromorphone HCl (Dilaudid) 0.25 mg IVPUSH ONETIME ONE Stop: 07/13/18 22:32 Last Admin: 07/13/18 22:35 Dose: 0.25 mg Sodium Chloride (Normal Saline) 1,000 mls @ 1,000 mls/hr IV .BOLUS STA Stop: 07/13/18 22:55 Last Admin: 07/13/18 22:18 Dose: 1,000 mls/hr Potassium Chloride 10 meq/ (Premix) 100 mls @ 100 mls/hr IV ASDIRECTED [facility] Last Admin: 07/13/18 23:25 Dose: 100 mls/hr Magnesium Sulfate/Dextrose 1 (gm/ Premix) 100 mls @ 100 mls/hr IV ONETIME ONE Stop: 07/14/18 00:48 Last Admin: 07/14/18 01:12 Dose: Not Given Potassium Chloride/Sodium Chloride (Normal Saline With 20 Meq Kcl) 1,000 mls @ 100 mls/hr IV ASDIRECTED [facility]ALBA Last Admin: 07/14/18 20:07 Dose: 100 mls/hr Magnesium Sulfate 2 gm/ Premix 50 mls @ 25 mls/hr IV ONETIME ONE Stop: 07/14/18 02:01 Last Admin: 07/14/18 00:10 Dose: 25 mls/hr Potassium Chloride 10 meq/ (Premix) 100 mls @ 100 mls/hr IV Q1H [place]AL[place] Stop: 07/14/18 13:29 Last Admin: 07/14/18 13:12 Dose: 100 mls/hr Potassium Phosphate 15 mmole/ (Sodium Chloride) 255 mls @ 85 mls/hr IV ONETIME ONE Stop: 07/15/18 11:59 Last Admin: 07/15/18 09:55 Dose: 85 mls/hr Magnesium Sulfate 2 gm/ Premix 50 mls @ 25 mls/hr IV ONETIME ONE Stop: 07/14/18 18:14 Last Admin: 07/14/18 17:19 Dose: 25 mls/hr Magnesium Sulfate 2 gm/ Premix 50 mls @ 25 mls/hr IV ONETIME ONE Stop: 07/15/18 10:29 Last Admin: 07/15/18 09:55 Dose: 25 mls/hr Potassium Phosphate 15 mmole/ (Sodium Chloride) 255 mls @ 42.5 mls/hr IV ONETIME ONE Stop: 07/16/18 14:29 Last Admin: 07/16/18 08:43 Dose: 42.5 mls/hr Potassium Chloride 10 meq/ (Premix) 100 mls @ 100 mls/hr IV Q1H [facility] Stop: 07/16/18 13:29 Last Admin: 07/16/18 15:01 Dose: 100 mls/hr Sodium Chloride (Normal Saline) 1,000 mls @ 100 mls/hr IV ASDIRECTED [facility] Last Admin: 07/16/18 13:32 Dose: 100 mls/hr Sodium Chloride (Normal Saline) Confirm Administered Dose 1,000 mls @ as directed .ROUTE .STK-MED ONE Stop: 07/16/18 11:35 Last Admin: 07/16/18 13:34 Dose: Not Given Insulin Human Lispro (Humalog) 0 unit SUBCUT QIDACANDBED [facility]; Protocol Last Admin: 07/15/18 12:01 Dose: 5 units Ondansetron HCl (Zofran) 4 mg IVPUSH ONETIME ONE Stop: 07/13/18 21:57 Last Admin: 07/13/18 22:19 Dose: 4 mg Sodium Chloride (Saline Flush) 10 ml FLUSH ASDIRECTED PRN PRN Reason: Keep Vein Open Last Admin: 07/13/18 22:19 Dose: 10 ml Valacyclovir HCl (Valtrex) 1,000 mg PO BID [facility]AL[facility] Last Admin: 07/14/18 20:53 Dose: 1,000 mg - Exam Quality Assessment: Reports: DVT Prophylaxis General: Reports: Alert, Cooperative, No Acute Distress HEENT: Reports: Pupils Equal, Pupils Reactive, EOMI, Mucous Membr. Moist/[place], Other (Scattered crusted over herpes zoster lesions on left cheek. ) Neck: Reports: Supple, Trachea Midline Lungs: Reports: Clear to Auscultation, Normal Respiratory Effort Cardiovascular: Reports: Regular Rate, Regular Rhythm GI/Abdominal Exam: Normal Bowel Sounds, Soft, Non-Tender, No Organomegaly, No Distention (Female) Exam: Deferred Rectal (Female) Exam: Deferred Back Exam: Reports: Normal Inspection, Full Range of Motion Extremities: Normal Inspection, Normal Range of Motion, Non-Tender, No Pedal Edema, Normal Capillary Refill Skin: Reports: Warm, Dry, Intact Neurological: Reports: No New Focal Deficit Psy/Mental Status: Reports: Alert, Normal Affect, Normal Mood
== END 2018-07-17 15:34 | disposition other institution (70) | DRG 641 ==
LOC: JD.ED 21:28 → JD.MS 07-14 00:08
PROVIDERS: ADMIT Family Medicine; ATTEND Family Medicine
DX: E87.6 Hypokalemia (principal); F05 Delirium due to known physiological condition; K52.1 Toxic gastroenteritis and colitis; R09.02 Hypoxemia; E83.42 Hypomagnesemia; B02.9 Zoster without complications; E11.9 Type 2 diabetes mellitus without complications; I10 Essential (primary) hypertension; E78.00 Pure hypercholesterolemia, unspecified; T38.3X5A Adverse effect of insulin and oral hypoglycemic [antidiabetic] drugs, initial encounter; E83.39 Other disorders of phosphorus metabolism; R53.1 Weakness; F03.90 Unspecified dementia, unspecified severity, without behavioral disturbance, psychotic disturbance, mood disturbance, and anxiety; K52.9 Noninfective gastroenteritis and colitis, unspecified; H54.7 Unspecified visual loss; H35.30 Unspecified macular degeneration; M19.90 Unspecified osteoarthritis, unspecified site; G43.909 Migraine, unspecified, not intractable, without status migrainosus; Z99.81 Dependence on supplemental oxygen; Z79.4 Long term (current) use of insulin; Z79.899 Other long term (current) drug therapy; Z87.440 Personal history of urinary (tract) infections; R53.83 Other fatigue; D72.829 Elevated white blood cell count, unspecified; Z85.828 Personal history of other malignant neoplasm of skin; R51 Headache; R07.9 Chest pain, unspecified; R10.84 Generalized abdominal pain; R06.02 Shortness of breath; R19.7 Diarrhea, unspecified; R11.2 Nausea with vomiting, unspecified; Z90.49 Acquired absence of other specified parts of digestive tract; Z90.710 Acquired absence of both cervix and uterus; Z96.659 Presence of unspecified artificial knee joint; Z96.619 Presence of unspecified artificial shoulder joint; Z66 Do not resuscitate; Z86.73 Personal history of transient ischemic attack (TIA), and cerebral infarction without residual deficits
CPT/HCPCS: 36415; 71045; 80053; 81001; 83690; 83735; 84484; 85025; 93005; 96361; 96365; 96375; 99285; J1170; J2405; J3480; J7040; 80048; 82962; 84100; 87046; 87427; 87493; 87641; 89055; 92610-GN; 93010; 97110-GP; 97116-GP; 97162-GP; 97530-GP; A9270-GY; J1650; J1815-GY; J3475; J3490; J7050